=== PATIENT | male | born 1925 | race Hispanic/Latino ===

== ENCOUNTER 2017-04-04 12:53 | Emergency (ER) | payer MEDICARE ==
[2017-04-04 12:53] VITALS: BMI 18.0
[2017-04-04 12:59] VITALS: RESP 16; TEMP 97.8
--- NOTE | 2017-04-04 13:39 | ED PDOC ---
HPI: Trauma/Fall - HPI Time Seen by Provider: 04/04/17 13:09 Chief Complaint (Nursing): Trauma Chief Complaint (Provider): Trauma History Per: Patient History/Exam Limitations: no limitations Onset/Duration Of Symptoms: Days (x2 days) Additional Complaint(s): 89 y/o male with a past medical history of a pacemaker and chronic obstructive pulmonary disease who presents to the emergency department with a complaint of lower back and right hip pain x2 days. States he fell, landed on his buttocks and hit his head but was able to walk afterwards as well as today with walker as usual with some pain to the back. Reports pain worsened today which prompted him to the emergency department. Denies right hip pain, loss of consciousness, weakness, and dizziness. PMD: Dr. Jason Arango MD Past Medical History Reviewed: Historical Data, Nursing Documentation, Vital Signs Vital Signs: Last Vital Signs Temp 97.8 F 04/04/17 12:56 Pulse 88 04/04/17 12:56 Resp 16 04/04/17 12:56 BP 140/101 H 04/04/17 12:56 Pulse Ox 98 04/04/17 12:56 - Medical History PMH: CHF, COPD, HTN, Hypercholesterolemia, Peripheral Edema, Pneumonia (OCT 2015 ), Chronic Kidney Disease (PROTEINURIA) - Surgical History Surgical History: Cholecystectomy, Pacemaker - Family History Family History: States: Unknown Family Hx - Social History Current smoker - smoking cessation education provided: No Ex-Smoker (has not smoked in the last 12 months): Yes Alcohol: None Drugs: Denies - Immunization History Hx Tetanus Toxoid Vaccination: No Hx Influenza Vaccination: No Hx Pneumococcal Vaccination: No - Home Medications Home Medications: Ambulatory Orders Medication Instructions Recorded Midodrine HCl 10 mg PO DAILY 10/12/15 Furosemide [Lasix] 20 mg PO DAILY 10/31/15 Aspirin [Ecotrin] 81 mg PO DAILY 04/26/16 Ibuprofen [Advil] 100 mg PO PRN PRN 04/26/16 - Allergies Allergies/Adverse Reactions: Allergies Allergy/AdvReac Type Severity Reaction Status Date / Time No Known Allergies Allergy Verified 07/17/16 08:09 Review of Systems ROS Statement: Except As Marked, All Systems Reviewed And Found Negative Constitutional: Negative for: Weakness, Other (Loss of consciousness) Cardiovascular: Negative for: Chest Pain Musculoskeletal: Positive for: Back Pain (Lower), Other (Right hip pain) Neurological: Negative for: Dizziness Physical Exam - Reviewed Nursing Documentation Reviewed: Yes Vital Signs Reviewed: Yes - Physical Exam Appears: Positive for: Non-toxic, No Acute Distress, Uncomfortable Head Exam: Positive for: ATRAUMATIC, NORMAL INSPECTION, NORMOCEPHALIC Skin: Positive for: Normal Color, Warm, Dry Eye Exam: Positive for: Normal appearance, EOMI Neck: Positive for: Normal, Supple Cardiovascular/Chest: Positive for: Regular Rate, Rhythm. Negative for: Murmur Respiratory: Positive for: Normal Breath Sounds. Negative for: Accessory Muscle Use, Respiratory Distress Gastrointestinal/Abdominal: Positive for: Normal Exam, Soft. Negative for: Tenderness Extremity: Positive for: Normal ROM (with pain of the right hip), Tenderness ( to palpation of the lower back ) Neurologic/Psych: Positive for: Alert, Oriented - Laboratory Results Result Diagrams: 04/04/17 13:35 04/04/17 13:35 - ECG O2 Sat by Pulse Oximetry: 98 (RA) Pulse Ox Interpretation: Normal Medical Decision Making Medical Decision Making: Time: 13:29 Initial impression: Traumatic injury from fall. Head, hip, and lower back injury. Rule out fractures Initial plan: --Cervical spine w/o contrast CT --Head w/o contrast CT --Lumbar Spine w/o contrast CT --BMP --CBC w/ diff --Hip 1 view X-ray --Reevaluation Time: 15:07 --Head CT FINDINGS: HEMORRHAGE: No acute the frontal, subarachnoid or extra-axial hemorrhage. BRAIN: Mild chronic periventricular white matter ischemic changes seen extending peripherally into the deep white matter both cerebral hemispheres. Few tiny scattered lacunar-type infarcts both basal nuclei not excluded. Moderate central volume loss evidenced by disproportionate enlargement of the ventricles as compared the sulci. VENTRICLES: No obstructive hydrocephalus. CALVARIUM: Unremarkable. PARANASAL SINUSES: Unremarkable as visualized. No significant inflammatory changes. MASTOID AIR CELLS: Unremarkable as visualized. No inflammatory changes. OTHER FINDINGS: Changes of bilateral cataract surgery are present, new since prior study IMPRESSION: No acute intracranial hemorrhage. Mild chronic white matter ischemic changes. Moderate central volume loss. . Right hip xray reviewed by me: no acute findings Scribe Attestation: Documented by Concepción Sommer, acting as a scribe for Mac Cooper MD. Provider Scribe Attestation: All medical record entries made by the Scribe were at my direction and personally dictated by me. I have reviewed the chart and agree that the record accurately reflects my personal performance of the history, physical exam, medical decision making, and the department course for this patient. I have also personally directed, reviewed, and agree with the discharge instructions and disposition. Disposition - Clinical Impression Clinical Impression: Fall, Injury, head, Injury of hip, right, Back injury - Patient ED Disposition Is Patient to be Admitted: Transfer of Care - Disposition Referrals: Jason Arango MD [Family Provider] - Disposition: Transfer of Care Disposition Time: 15:00 Condition: STABLE Instructions: Fall Prevention for Older Adults (ED) Forms: [employer] ([place]an) Patient Signed Over To: Randi Villalobos
[2017-04-04 13:48] LABS: BASO # 0.1 K/uL (0.0-0.2); BASO % 0.8 % (0.0-2.0); EOS # 0.2 K/uL (0.0-0.7); EOS % 1.6 % (0.0-4.0); HEMATOCRIT 42.4 % (35.0-51.0); LYMPH # 0.8 K/uL (1.0-4.3); LYMPH % 7.6 % (20.0-40.0); MEAN CELL VOLUME 96.5 fl (80.0-94.0); MEAN CORPUSCULAR HEMOGLOBIN 32.3 pg (27.0-31.0); MEAN CORPUSCULAR HGB CONC 33.4 g/dL (33.0-37.0); MEAN PLATELET VOLUME 9.7 fl (7.2-11.7); MONO % 9.2 % (0.0-10.0); NEUT # 8.3 K/uL (1.8-7.0); NEUT % 80.8 % (50.0-75.0); NRBC % 0.1 % (0.0-0.0); PLATELET COUNT 124 K/uL (130-400); RED CELL DISTRIBUTION WIDTH 14.9 % (11.5-14.5); WHITE BLOOD COUNT 10.3 K/uL (4.8-10.8)
[2017-04-04 14:01] LABS: BLOOD UREA NITROGEN 40 mg/dl (9-20); CALCIUM 8.9 mg/dL (8.4-10.2); CARBON DIOXIDE 26 mmol/L (22-30); CHLORIDE 100 mmol/L (98-107); GFR AFRICAN-AMERICAN > 60; GLUCOSE,RANDOM 108 mg/dL (75-110); POTASSIUM 4.1 MMOL/L (3.6-5.0); SODIUM 138 mmol/l (132-148)
[2017-04-04 14:46] LABS: EOSINOPHIL 1 % (0-7); NEUTROPHIL 90 % (42-75); TOTAL CELLS COUNTED 100
--- NOTE | 2017-04-04 15:08 | CT ---
PROCEDURE: CT scan of the brain dated 04/04/2017 HISTORY: head injury COMPARISON: Comparison made with prior CT scan brain 09/12/2011. TECHNIQUE: Axial computed tomography images were obtained through the head/brain without intravenous contrast. Radiation dose: Total exam DLP = 1020.93 mGy-cm. This CT exam was performed using one or more of the following dose reduction techniques: Automated exposure control, adjustment of the mA and/or kV according to patient size, and/or use of iterative reconstruction technique. FINDINGS: HEMORRHAGE: No acute the frontal, subarachnoid or extra-axial hemorrhage. BRAIN: Mild chronic periventricular white matter ischemic changes seen extending peripherally into the deep white matter both cerebral hemispheres. Few tiny scattered lacunar-type infarcts both basal nuclei not excluded. Moderate central volume loss evidenced by disproportionate enlargement of the ventricles as compared the sulci. VENTRICLES: No obstructive hydrocephalus. CALVARIUM: Unremarkable. PARANASAL SINUSES: Unremarkable as visualized. No significant inflammatory changes. MASTOID AIR CELLS: Unremarkable as visualized. No inflammatory changes. OTHER FINDINGS: Changes of bilateral cataract surgery are present, new since prior study IMPRESSION: No acute intracranial hemorrhage. Mild chronic white matter ischemic changes. Moderate central volume loss. .
--- NOTE | 2017-04-04 15:47 | CT ---
PROCEDURE: CT Cervical Spine without contrast HISTORY: <head injury> COMPARISON: None available. TECHNIQUE: Axial computed tomography images were obtained of the cervical spine without the use of intravenous contrast. Coronal and sagittal reformatted images were created and reviewed. Radiation dose: Total exam DLP = 440.16 mGy-cm. This CT exam was performed using one or more of the following dose reduction techniques: Automated exposure control, adjustment of the mA and/or kV according to patient size, and/or use of iterative reconstruction technique. FINDINGS: VERTEBRAE: Current study reveals no definitive radiographic evidence of acute displaced nor compression fracture deformity. . Chronic appearing anterior wedge compression fractures of the T4 and T5 segments noted with resultant marked kyphosis centered at this level. There is also on slight anterior subluxation of C4 over C5 and C7 over T1. Remaining vertebral bodies otherwise exhibit relatively normal alignment. Facets normally aligned. DISCS/SPINAL CANAL/NEURAL FORAMINA: Multilevel degenerative spondylosis. Changes include varying degrees of disc space narrowing, endplate eburnation with anterolateral as well as small posterior osteophyte formation, most notably affecting the C5-C6, C6-C7 and to a lesser degree remaining levels. The uncovertebral facets also hypertrophic with multilevel bilateral foraminal stenosis. The overall central canal the is poorly seen due to significant kyphotic angulation of with axial sections at angles to nearly every cervical disc space. Central canal appears marginal to mildly narrowed throughout. PARASPINAL SOFT TISSUES: Paraspinal soft tissues appear grossly unremarkable. OTHER FINDINGS: Scarring changes/fibrosis both upper lobes. In addition, there are centrilobular and paraseptal emphysematous changes are also felt to be present. IMPRESSION: There are chronic appearing anterior wedge compression fractures of the T4 and T5 segments with significant kyphotic angulation centered at this level. No definitive acute compression fractures. Multilevel degenerative spondylosis.
--- NOTE | 2017-04-04 15:56 | ED PDOC ---
- Laboratory Results Result Diagrams: 04/04/17 13:35 04/04/17 13:35 - ECG O2 Sat by Pulse Oximetry: 98 (RA) Pulse Ox Interpretation: Normal Medical Decision Making Medical Decision Making: Time: 15:00 --Patient was transferred from Dr. Almazan to ne. --Pending x-ray and CT. Time: 15:45 --Cervical Spine CT FINDINGS: VERTEBRAE: Current study reveals no definitive radiographic evidence of acute displaced nor compression fracture deformity. . Chronic appearing anterior wedge compression fractures of the T4 and T5 segments noted with resultant marked kyphosis centered at this level. There is also on slight anterior subluxation of C4 over C5 and C7 over T1. Remaining vertebral bodies otherwise exhibit relatively normal alignment. Facets normally aligned. DISCS/SPINAL CANAL/NEURAL FORAMINA: Multilevel degenerative spondylosis. Changes include varying degrees of disc space narrowing, endplate eburnation with anterolateral as well as small posterior osteophyte formation, most notably affecting the C5-C6, C6-C7 and to a lesser degree remaining levels. The uncovertebral facets also hypertrophic with multilevel bilateral foraminal stenosis. The overall central canal the is poorly seen due to significant kyphotic angulation of with axial sections at angles to nearly every cervical disc space. Central canal appears marginal to mildly narrowed throughout. PARASPINAL SOFT TISSUES: Paraspinal soft tissues appear grossly unremarkable. OTHER FINDINGS: Scarring changes/fibrosis both upper lobes. In addition, there are centrilobular and paraseptal emphysematous changes are also felt to be present. IMPRESSION: There are chronic appearing anterior wedge compression fractures of the T4 and T5 segments with significant kyphotic angulation centered at this level. No definitive acute compression fractures. Multilevel degenerative spondylosis. Scribe Attestation: Documented by Concepción Sommer, acting as a scribe for Mac Cooper MD. Provider Scribe Attestation: All medical record entries made by the Scribe were at my direction and personally dictated by me. I have reviewed the chart and agree that the record accurately reflects my personal performance of the history, physical exam, medical decision making, and the department course for this patient. I have also personally directed, reviewed, and agree with the discharge instructions and disposition. 4.00p - patient observed to ambulate with his walker steadily. CT scans unrevealing of acute pathology. X-rays reviewed and do not show acute pathology. Will discharge. Disposition Doctor Will See Patient In The: Office Counseled Patient/Family Regarding: Diagnosis, Need For Followup - Clinical Impression Clinical Impression: Fall - POA Present On Arrival: Falls Or Trauma - Disposition Referrals: Jason Arango MD [Family Provider] - Disposition: Routine/Home Disposition Time: 16:04 Condition: STABLE Instructions: Fall Prevention for Older Adults (ED) Forms: [employer] (Turkish)
--- NOTE | 2017-04-04 16:01 | CT ---
PROCEDURE: CT scan lumbar spine dated 04/04/2017. HISTORY: Status post fall with low back pain. COMPARISON: No prior study available for comparison however correlation made with CT scan of the TECHNIQUE: Contiguous helical/transaxial computed tomography images were obtained of the lumbar spine without the use of intravenous contrast. Coronal and sagittal reformatted images were created and reviewed. Radiation dose: Total exam DLP = 429.35 mGy-cm. This CT exam was performed using one or more of the following dose reduction techniques: Automated exposure control, adjustment of the mA and/or kV according to patient size, and/or use of iterative reconstruction technique. . FINDINGS: VERTEBRAE: Minor fish-mouth endplate deformities of few lumbar segments. Vertebral bodies otherwise exhibit normal stature. Slight anterior subluxation L4 over L5 however remaining vertebral bodies otherwise exhibit normal alignment. Facets normally aligned. Multilevel degenerative spondylosis. At the L5-S1 level, there is minor posterior disc space narrowing. No disc herniation or significant disc bulge. Facet joints are hypertrophic right greater than left. The overall central canal appears adequate. Exit foramina appear adequate. . At the L4-L5 level, there is disc space narrowing more so along the posterior disc margin with vacuum disc phenomena. Small broad-based disc bulge ridge complex extends into the inferior margins of both exit foramina more so on the left than the right. Hypertrophic facets and buckled ligamentum flavum. Significant central canal stenosis. Right exit foramen is stenotic. Left exit foramen is marginal to adequate. At the L3-L4 level, there is minor posterior disc space narrowing. Small broad-based disc bulge ridge complex. . Disc results in some flattening the ventral surface of thecal sac. The central canal appears adequate. Facets are hypertrophic and flavum somewhat buckled. . Exit foramina are adequate. At the L2-L3 level, the there is intradiscal calcification and minor posterior disc space narrowing. Small somewhat lobulated disc bulging results in compressive effects along the anterolateral borders of the thecal sac. Facets are hypertrophic. Central canal is marginal to adequate. The exit foramina appear adequate. At the L1-L2 level, there is disc space narrowing with vacuum disc phenomena. Small broad-based disc bulge ridge complex asymmetrically larger on the right than left results in some flattening of the ventral surface of the thecal sac more so on the right side. The overall central canal appears adequate. Facets are also hypertrophic. Exit foramina are adequate. Paraspinal soft tissues unremarkable. Incidental note made of localized aneurysmal dilatation of the infrarenal abdominal aorta which measures approximately 3.4 cm in transverse dimension Findings consistent with constipation. Status post cholecystectomy Impression: No acute fractures. Mild fish-mouth endplate deformities noted at several levels. Multilevel degenerative spondylosis most severely affecting the L4-L5 level. There is also on mild aneurysmal dilatation of the infrarenal abdominal aorta.
[2017-04-04 16:11] VITALS: BP 116/56; PULSE 59
--- NOTE | 2017-04-04 16:13 | RAD ---
PROCEDURE: Right Hip Radiographs. A frontal view of the pelvis and frontal/frogleg lateral views of the right hip performed. HISTORY: right hip pain injury COMPARISON: None. FINDINGS: BONES: No evidence of acute displaced fracture nor dislocation. The osseous structures intact. Both femoral heads are appropriately located within the respective acetabula. JOINTS: Minor spurring along the superolateral margins of the acetabular rims. SOFT TISSUES: Soft tissues appear grossly unremarkable OTHER FINDINGS: None. IMPRESSION: No acute fractures. If symptoms persist or occult fracture suspected clinically recommend followup CT scan of the pelvis and right hip.
[2017-04-05 16:38] VITALS: O2SAT 98
== END 2017-04-04 16:17 | disposition home or self-care (01) ==
LOC: H.ER 12:53
DX: S09.90XA Unspecified injury of head, initial encounter (principal); S39.92XA Unspecified injury of lower back, initial encounter; S22.049A Unspecified fracture of fourth thoracic vertebra, initial encounter for closed fracture; W19.XXXA Unspecified fall, initial encounter; Y92.89 Other specified places as the place of occurrence of the external cause; I13.0 Hypertensive heart and chronic kidney disease with heart failure and stage 1 through stage 4 chronic kidney disease, or unspecified chronic kidney disease; J44.9 Chronic obstructive pulmonary disease, unspecified; Z79.82 Long term (current) use of aspirin; Z95.0 Presence of cardiac pacemaker

== ENCOUNTER 2017-05-14 15:11 | Inpatient (IN) | payer MEDICARE, OTHER ==
[2017-05-14] MEDS ORDERED: Albuterol-Ipratrop 3 mg / 0.5 (3 ml) UD INH STA (15:57)
--- NOTE | 2017-05-14 16:00 | ED PDOC ---
HPI: SOB/CHF/COPD Time Seen by Provider: 05/14/17 15:35 Chief Complaint (Nursing): Back Pain Chief Complaint (Provider): shortness of breath History Per: Patient, Family History/Exam Limitations: no limitations Onset/Duration Of Symptoms: Days (2), Gradual, Persistent Exacerbating Factor(s): Exertion Associated Symptoms: Other (nonproductive cough). denies: Fever, Chills, Chest Pain Additional Complaint(s): Also reporting intractable back pain, seen by PMR today. PMD/Card: Dr Raúl Arango Pulm: Paula PMR: Dr Dodson Past Medical History Reviewed: Historical Data, Nursing Documentation, Vital Signs Vital Signs: Last Vital Signs Temp 98 F 05/14/17 15:24 Pulse 58 L 05/14/17 15:24 Resp 18 05/14/17 15:24 BP 109/65 05/14/17 15:24 Pulse Ox 93 L 05/14/17 16:04 - Medical History PMH: CHF, COPD, HTN, Hypercholesterolemia, Peripheral Edema, Pneumonia (OCT 2015 ), Chronic Kidney Disease (PROTEINURIA) - Surgical History Surgical History: Cholecystectomy, Pacemaker - Family History Family History: States: Unknown Family Hx - Social History Ex-Smoker (has not smoked in the last 12 months): Yes - Immunization History Hx Tetanus Toxoid Vaccination: No Hx Influenza Vaccination: No Hx Pneumococcal Vaccination: No - Home Medications Home Medications: Ambulatory Orders Medication Instructions Recorded Midodrine HCl 10 mg PO DAILY 10/12/15 Furosemide [Lasix] 20 mg PO DAILY 10/31/15 Aspirin [Ecotrin] 81 mg PO DAILY 04/26/16 Fluticasone/Vilanterol [Breo 1 puff IH DAILY 05/14/17 Ellipta 100-25 Mcg INH] Lidocaine 5% [Lidoderm] 1 patch TD DAILY PRN 05/14/17 - Allergies Allergies/Adverse Reactions: Allergies Allergy/AdvReac Type Severity Reaction Status Date / Time No Known Allergies Allergy Verified 07/17/16 08:09 Review of Systems ROS Statement: Except As Marked, All Systems Reviewed And Found Negative (and as per HPI) Constitutional: Negative for: Fever, Chills Cardiovascular: Positive for: Edema, Light Headedness. Negative for: Chest Pain Respiratory: Positive for: Cough, Shortness of Breath, SOB with Exertion. Negative for: Hemoptysis, Sputum Gastrointestinal: Positive for: Constipation. Negative for: Nausea, Vomiting, Abdominal Pain Musculoskeletal: Positive for: Back Pain Physical Exam - Reviewed Nursing Documentation Reviewed: Yes Vital Signs Reviewed: Yes - Physical Exam Appears: Positive for: In Acute Distress (mild respiratory, chronically ill appearing, but with good spirits) Head Exam: Positive for: ATRAUMATIC, NORMOCEPHALIC Skin: Positive for: Warm, Dry Eye Exam: Positive for: EOMI, PERRL ENT: Positive for: Pharynx Is (clear) Neck: Positive for: Painless ROM, Supple Cardiovascular/Chest: Positive for: Chest Non Tender, Edema, Bradycardia Respiratory: Positive for: Rhonchi (faint), Other (poor air movement). Negative for: Rales, Stridor Gastrointestinal/Abdominal: Positive for: Soft. Negative for: Tenderness Back: Positive for: Vertebral Tenderness (lumbar diffuse with no palp step off or crepitus). Negative for: Muscle Spasm Extremity: Positive for: Pedal Edema (bilateral lower leg and ankle). Negative for: Calf Tenderness Lymphatic: Negative for: Adenopathy Neurologic/Psych: Positive for: Alert. Negative for: Motor/Sensory Deficits - ECG ECG Rhythm: Positive for: Venticular Paced (with appropriate discordance), Nonspecific Changes O2 Sat by Pulse Oximetry: 93 Pulse Ox Interpretation: Normal (low normal) - Radiology X-Ray Interpretation: No Acute Disease (similar to previous sep 2016) - Progress ED Course And Treament: 345p DW Dr Dodson who reports that patient appeared cyanotic and overly dyspneic in his office. He had spoken to Dr Arango about concerns. Sent to ER from office. Requests repeat CT lumbar spine focus on coccyx/sacral area. Disposition - Clinical Impression Clinical Impression: Pulmonary fibrosis, Intractable back pain Discussed With : Jason Arango Doctor Will See Patient In The: Hospital - Disposition Disposition Time: 16:00 Condition: SERIOUS Forms: [facility] [employer] (Welsh) - Pt Status Changed To: Hospital Disposition Of: Observation
[2017-05-14 16:10] LABS: ABG ALLEN TEST YES; ARTERIAL BLOOD GAS HCO3 27.9 mmol/L (21-28); ARTERIAL BLOOD GAS PH 7.48 (7.35-7.45); ARTERIAL BLOOD GAS PO2 60 mm/Hg (80-100)
[2017-05-14 16:39] LABS: BASO # 0.1 K/uL (0.0-0.2); BASO % 0.8 % (0.0-2.0); EOS # 0.2 K/uL (0.0-0.7); EOS % 3.5 % (0.0-4.0); LYMPH # 0.6 K/uL (1.0-4.3); LYMPH % 9.5 % (20.0-40.0); MEAN CELL VOLUME 95.5 fl (80.0-94.0); MEAN CORPUSCULAR HEMOGLOBIN 31.9 pg (27.0-31.0); MEAN CORPUSCULAR HGB CONC 33.4 g/dL (33.0-37.0); MONO # 0.7 K/uL (0.0-0.8); MONO % 11.1 % (0.0-10.0); NEUT # 4.9 K/uL (1.8-7.0); NEUT % 75.1 % (50.0-75.0); NRBC % 0.1 % (0.0-0.0); PLATELET COUNT 190 K/uL (130-400); RED CELL DISTRIBUTION WIDTH 14.9 % (11.5-14.5); WHITE BLOOD COUNT 6.6 K/uL (4.8-10.8)
[2017-05-14 16:42] LABS: ALB/GLOB RATIO 1.2 (1.0-2.1); ALKALINE PHOSPHATASE 113 U/L (38-126); ALT/SGPT 32 U/L (21-72); AST/SGOT 24 U/L (17-59); BILIRUBIN,TOTAL 0.8 mg/dl (0.2-1.3); BLOOD UREA NITROGEN 37 mg/dl (9-20); CALCIUM 9.3 mg/dL (8.4-10.2); CARBON DIOXIDE 25 mmol/L (22-30); CHLORIDE 103 mmol/L (98-107); GFR AFRICAN-AMERICAN > 60; GLUCOSE,RANDOM 111 mg/dL (75-110); MAGNESIUM 2.4 MG/DL (1.6-2.3); POTASSIUM 4.2 MMOL/L (3.6-5.0); SODIUM 143 mmol/l (132-148); TOTAL PROTEIN 6.9 G/DL (6.3-8.2)
--- NOTE | 2017-05-14 16:54 | RAD ---
HISTORY: Shortness of breath. Technique: Single view portable semi erect @ 15:51. COMPARISON: 09/18/2016. FINDINGS: LUNGS: Fibronodular changes again identified in the upper lobes right greater than left. PLEURA: No significant pleural effusion identified, no pneumothorax apparent. CARDIOVASCULAR: Cardiomegaly. No evidence of acute, significant cardiovascular disease. Position/ configuration of pacemaker Satisfactory. OSSEOUS STRUCTURES: No significant abnormalities. VISUALIZED UPPER ABDOMEN: Normal. OTHER FINDINGS: None. IMPRESSION: No active disease. No significant interval change compared to the prior examination(s). Please note: No preliminary report/ innterpretation of this examination provided by emergency department personnel.
[2017-05-14 16:56] LABS: PARTIAL THROMBOPLASTIN TIME 26.2 Seconds (25.6-37.1)
[2017-05-14 18:58] LABS: BASOPHIL 1 % (0-2); EOSINOPHIL 4 % (0-7); NEUTROPHIL 71 % (42-75); TOTAL CELLS COUNTED 100
[2017-05-14 18:59] LABS: LARGE PLATELETS PRESENT
[2017-05-14 19:44] VITALS: BMI 17.0
[2017-05-14] MEDS ORDERED: Albuterol-Ipratrop 3 mg / 0.5 (3 ml) UD INH PRN (23:06)
[2017-05-14] MEDS ORDERED: Albuterol 0.083% Inhal Sol (2.5 mg/3 mL) UD INH PRN (23:10)
[2017-05-14] MEDS: Albuterol-Ipratrop 3 mg / 0.5 (3 ml) UD INH SCH (23:15)
[2017-05-15] MEDS: Albuterol 0.083% Inhal Sol (2.5 mg/3 mL) UD INH PRN ×2 (05:49→17:52)
[2017-05-15] MEDS ORDERED: Influenza Vaccine 18yr & older 0.5 ML/45 MCG SYR IM ONE (06:00)
[2017-05-15] MEDS: Albuterol-Ipratrop 3 mg / 0.5 (3 ml) UD INH SCH ×4 (07:52→19:34)
[2017-05-15] MEDS ORDERED: Albuterol-Ipratrop 3 mg / 0.5 (3 ml) UD INH SCH (08:00)
--- NOTE | 2017-05-15 08:05 | CT ---
PROCEDURE: CT Lumbar Spine without contrast HISTORY: back pain focus in coccygeal area COMPARISON: 04/04/2017. TECHNIQUE: Axial computed tomography images were obtained of the lumbar spine without the use of intravenous contrast. Coronal and sagittal reformatted images were created and reviewed. Radiation dose: Total exam DLP = 477.05 mGy-cm. This CT exam was performed using one or more of the following dose reduction techniques: Automated exposure control, adjustment of the mA and/or kV according to patient size, and/or use of iterative reconstruction technique. FINDINGS: VERTEBRAE: Progressive loss of height of L3 vertebral body. New wedge deformity L2 vertebral body. DISCS/SPINAL CANAL/NEURAL FORAMINA: L1-2: Stable degenerative changes. L2-3: No significant interval change compared to the prior examination(s). L3-4: No significant interval L4-5: Change progressive degenerative change, loss of height of disc space a new vacuum disc phenomenon. L5-S1: Unremarkable. PARASPINAL SOFT TISSUES: Unremarkable. OTHER FINDINGS: Stable aneurysmal dilatation of the abdominal aorta. Increased angulation of the coccyx compared to the prior study. Fecal impaction, constipation. IMPRESSION: New wedge deformity L2 vertebral body, progressive loss of height of L3 vertebral body Increased angulation of the coccyx at the level of the 1st and 2nd coccygeal elements. Otherwise no interval change. Concordant results (preliminary interpretation) provided by [employer]. Procedure Completed: 16:20. Preliminary ([facility]) Report: Dictated and Authenticated: 18:48. Final Interpretation: 08:02.May 15, 2017.
[2017-05-15] MEDS ORDERED: Patient's Own Med (Fluticasone/Vilanterol [Breo Ellipta 100-25 Mcg Inh] 1 PUFF) IH SCH (09:00)
[2017-05-15] MEDS: Enoxaparin 30 mg Syringe SC SCH (09:32)
--- NOTE | 2017-05-15 09:43 | CARD ---
APPROVED REPORT EKG Measurement Heart [id number] P58 [id number] <Conclusion> VVI pacing Abnormal ECG
--- NOTE | 2017-05-15 09:44 | CARD ---
APPROVED REPORT EKG Measurement Heart [id number] [place] P61 [id number] <Conclusion> Sinus rhythm with complete heart block and Ventricular-paced rhythm Abnormal ECG
--- NOTE | 2017-05-15 10:34 | CP.PCM.HP ---
History of Present Illness - History of Present Illness History of Present Illness: tthis 89-year-old man was brought to the emergency room when he was seen in the office of his pain management physician and was found to be profoundly short of breath. The patient lives alone and had had a fall resulting in a back injury approximately 2-1/2-3 weeks back following which she has had a persistent back pain and has seen a pain management physician approximately a week back before. The patient has a long medical history consisting of progressive pulmonary fibrosis which makes him profoundly short of breath with minimal exertion and even at rest. The patient has been using oxygen supplement at home for approximately a year and a half. His dyspnea on exertion and is effort tolerance has progressively declined.the patient also has severe left ventricular systolic dysfunction. He also has orthostatic hypotension for which she takes Midodrin for more than 4-5 years. He has had a pacemaker implanted for severe bradycardia more than 10 years back which was revised couple of years back. Because of his orthostatic hypotension his diuretic doses for congestive heart failure are being given with extreme caution. Physical examination shows an elderly frail man alert awake and concordant. In moderate degree of back pain. Afebrile. Breeds at 22 breaths per minute at rest. His heart rate was 70 bpm and regular. His jugular venous pressure was not elevated there was minimal pitting edema over both lower extremities. The pedal pulses were palpable. There were no carotid bruits. The patient was moderately kyphotic. A pacemaker was in place in the left infraclavicular area. The first and second heart sounds were normal and distant. There was a brief systolic murmur in the left third parasternal area. Inspiratory effort was poor and there were coarse crepitations at both bases. His extremities were slightly cool to touch there was no central or peripheral cyanosis while on oxygen supplement with nasal cannula at 3 L/m. His electric cart a gram showed a VVI paced rhythm. There were P waves detected on the electrocardiogram. Chest x-ray showed hyperinflated lungs with no evidence off vascular congestion. His lab data showed marked hypoxia with B O2 of 60 mmHg while on 35% of FiO2. His PCO2 was normal. His BUN and creatinine as well as electrolytes were noted. His proBNP was markedly elevated indicating of severe left ventricular systolic dysfunction which was documented on an echocardiogram of October 2015 which showed an ejection fraction of left ventricle in the range of 10%. Impression: severe back pain following a fall. Pulmonary fibrosis with severe hypoxia. Congestive cardiac failure which is left ventricular systolic and chronic. Orthostatic hypotension. Status post pacemaker implant was severe bradycardia. The patient would be evaluated by pulmonary physician and pain management physician. He lives alone at home and has severe pulmonary and cardiac infirmity. I would recommend a brief period of staying in a subacute nursing facility for pain management before returning home. Present on Admission - Present on Admission Any Indicators Present on Admission: No Past Patient History - Past Medical History & Family History Past Medical History?: Yes - Past Social History Smoking Status: Former Smoker - CARDIAC Hx Congestive Heart Failure: Yes Hx Hypercholesterolemia: Yes Hx Hypertension: Yes Hx Pacemaker: Yes Hx Peripheral Edema: Yes - PULMONARY Hx Chronic Obstructive Pulmonary Disease (COPD): Yes Hx Pneumonia: Yes (OCT 2015) - NEUROLOGICAL Hx Neurological Disorder: No - HEENT Hx HEENT Problems: Yes Hx Cataracts: Yes - RENAL Hx Chronic Kidney Disease: Yes (PROTEINURIA) - ENDOCRINE/METABOLIC Hx Endocrine Disorders: No - HEMATOLOGICAL/ONCOLOGICAL Hx Blood Disorders: No - INTEGUMENTARY Hx Dermatological Problems: No - MUSCULOSKELETAL/RHEUMATOLOGICAL Hx Musculoskeletal Disorders: Yes Hx Back Pain: Yes Hx Falls: Yes Hx Unsteady Gait: Yes Other/Comment: LIMIT JOINT MOTION - GASTROINTESTINAL Hx Gastrointestinal Disorders: No - GENITOURINARY/GYNECOLOGICAL Hx Genitourinary Disorders: No - PSYCHIATRIC Hx Psychophysiologic Disorder: No Hx Substance Use: No - SURGICAL HISTORY Hx Cholecystectomy: Yes - ANESTHESIA Hx Anesthesia: Yes Hx Anesthesia Reactions: No Hx Malignant Hyperthermia: No Meds Allergies/Adverse Reactions: Allergies Allergy/AdvReac Type Severity Reaction Status Date / Time No Known Allergies Allergy Verified 07/17/16 08:09 Results - Vital Signs Recent Vital Signs: Last Vital Signs Temp 98.4 F 05/15/17 08:00 Pulse 60 05/15/17 08:00 Resp 18 05/15/17 08:00 BP 116/55 L 05/15/17 09:33 Pulse Ox 95 05/15/17 08:00 - Labs Result Diagrams: 05/14/17 16:00 05/14/17 16:00 Labs: Laboratory Results - last 24 hr 05/14/17 05/14/17 05/14/17 16:00 16:00 16:00 WBC 6.6 RBC 4.40 Hgb 14.0 Hct 42.0 MCV 95.5 H MCH 31.9 H MCHC 33.4 RDW 14.9 H Plt Count 190 MPV 9.0 Neut % (Auto) 75.1 H Lymph % (Auto) 9.5 L [place] % (Auto) 11.1 H Eos % (Auto) 3.5 Baso % (Auto) 0.8 Neut # 4.9 Lymph # 0.6 L Sully # 0.7 Eos # 0.2 Baso # 0.1 Neutrophils % (Manual) 71 Band Neutrophils % 3 H Lymphocytes % (Manual) 10 L Monocytes % (Manual) 11 H Eosinophils % (Manual) 4 Basophils % (Manual) 1 Platelet Estimate Normal Large Platelets Present Macrocytosis (manual) Slight PT INR APTT pCO2 pO2 HCO3 ABG pH ABG Total CO2 ABG O2 Saturation ABG Base Excess López Test ABG Potassium A-a O2 Difference Glucose Lactate FiO2 Sodium 143 Potassium 4.2 Chloride 103 Carbon Dioxide 25 Anion Gap 19 BUN 37 H Creatinine 1.2 Est GFR ( Amer) > 60 Est GFR (Non-Af Amer) 57 Random Glucose 111 H Calcium 9.3 Phosphorus 3.0 Magnesium 2.4 H Total Bilirubin 0.8 AST 24 ALT 32 Alkaline Phosphatase 113 Troponin I 0.0320 NT-Pro-B Natriuret Pep 20392 H Total Protein 6.9 Albumin 3.8 Globulin 3.1 Albumin/Globulin Ratio 1.2 Arterial Blood Potassium Blood Type A NEGATIVE Antibody Screen Negative BBK History Checked No verified bt 05/14/17 05/14/17 16:04 16:25 WBC RBC Hgb Hct MCV MCH MCHC RDW Plt Count MPV Neut % (Auto) Lymph % (Auto) Sully % (Auto) Eos % (Auto) Baso % (Auto) Neut # Lymph # Sully # Eos # Baso # Neutrophils % (Manual) Band Neutrophils % Lymphocytes % (Manual) Monocytes % (Manual) Eosinophils % (Manual) Basophils % (Manual) Platelet Estimate Large Platelets Macrocytosis (manual) PT 11.2 INR 1.1 APTT 26.2 pCO2 37 pO2 60 L HCO3 27.9 ABG pH 7.48 H ABG Total CO2 28.7 H ABG O2 Saturation 96.9 ABG Base Excess 4.0 H López Test Yes ABG Potassium 4.1 A-a O2 Difference 122.0 Glucose 131 H Lactate 1.1 FiO2 32.0 Sodium 139.0 Potassium Chloride 105.0 Carbon Dioxide Anion Gap BUN Creatinine Est GFR ( Amer) Est GFR (Non-Af Amer) Random Glucose Calcium Phosphorus Magnesium Total Bilirubin AST ALT Alkaline Phosphatase Troponin I NT-Pro-B Natriuret Pep Total Protein Albumin Globulin Albumin/Globulin Ratio Arterial Blood Potassium 4.1 Blood Type Antibody Screen BBK History Checked
--- NOTE | 2017-05-15 12:51 | CP.PCM.CON ---
History of Present Illness - History of Present Illness History of Present Illness: THis 89 year old male who suffers from pulmonary emphysema as well as fibrosis was being seen by Pain Management after having had a fall at home about 2-3 weeks prior. He was noted to be markedly SOB and was sent to the emergency room for evaluation. He was found to be hypoxemic as well as SOB and was admitted to hospital. He does not have any chest pain, and has small amount of sputum production which is mucoid and babb in color. There has been no hemoptysis. He is a former cigarette smoker who quit his habit 25 years ago. He does have a pulmonary nodule in the right lung and had been hospitalized with pneumonia last year, but has no prior history of asthma or tuberculosis exposure. Over the past year he has had progressive GALDAMEZ and has become oxygen dependant at home. A chest x-ray done in the ER showed 'fibronodular changes' primarily affecting the upper lobes. Past Patient History - Past Medical History & Family History Past Medical History?: Yes - Past Social History Smoking Status: Former Smoker - CARDIAC Hx Congestive Heart Failure: Yes Hx Hypercholesterolemia: Yes Hx Hypertension: Yes Hx Pacemaker: Yes Hx Peripheral Edema: Yes - PULMONARY Hx Chronic Obstructive Pulmonary Disease (COPD): Yes Hx Pneumonia: Yes (OCT 2015) Other/Comment: Fibrosis with areas of honeycombing bilaterally. - NEUROLOGICAL Hx Neurological Disorder: No - HEENT Hx Cataracts: Yes - RENAL Hx Chronic Kidney Disease: Yes (PROTEINURIA) - ENDOCRINE/METABOLIC Hx Endocrine Disorders: No - HEMATOLOGICAL/ONCOLOGICAL Hx Blood Disorders: No - INTEGUMENTARY Hx Dermatological Problems: No - MUSCULOSKELETAL/RHEUMATOLOGICAL Hx Back Pain: Yes Hx Falls: Yes Hx Unsteady Gait: Yes Other/Comment: LIMIT JOINT MOTION - GASTROINTESTINAL Hx Gastrointestinal Disorders: No - GENITOURINARY/GYNECOLOGICAL Hx Genitourinary Disorders: No - PSYCHIATRIC Hx Psychophysiologic Disorder: No Hx Substance Use: No - SURGICAL HISTORY Hx Cholecystectomy: Yes - ANESTHESIA Hx Anesthesia: Yes Hx Anesthesia Reactions: No Hx Malignant Hyperthermia: No Meds Allergies/Adverse Reactions: Allergies Allergy/AdvReac Type Severity Reaction Status Date / Time No Known Allergies Allergy Verified 07/17/16 08:09 - Medications Medications: Current Medications Albuterol Sulfate (Albuterol 0.083% Inhal Lashon (2.5 Mg/3 Ml) Ud) 2.5 mg INH RQ4 PRN PRN Reason: SHORTNESS of breath Last Admin: 05/15/17 05:49 Dose: 2.5 mg Albuterol/Ipratropium (Duoneb 3 Mg/0.5 Mg (3 Ml) Ud) 3 ml INH RQID [facility] Last Admin: 05/15/17 11:27 Dose: 3 ml Docusate Sodium (Colace) 100 mg PO DAILY [facility] Enoxaparin Sodium (Lovenox) 30 mg SC DAILY [facility] PRN Reason: Protocol Last Admin: 05/15/17 09:32 Dose: 30 mg Furosemide (Lasix) 20 mg PO DAILY [facility] Last Admin: 05/15/17 09:33 Dose: 20 mg Methylprednisolone 40 mg/ (Sodium Chloride) 50 mls @ 100 mls/hr IVPB Q12 [facility] Ketorolac Tromethamine (Toradol) 15 mg IVP Q6 PRN PRN Reason: Pain, moderate (4-7) Last Admin: 05/15/17 05:40 Dose: 15 mg Lactulose (Enulose) 10 gm PO DAILY PRN PRN Reason: Constipation Lidocaine (Lidoderm) 1 ea TD DAILY PRN PRN Reason: Pain, Mild (1-3) Midodrine (Proamatine) 10 mg PO DAILY [facility] Last Admin: 05/15/17 09:33 Dose: 10 mg Physical Exam - Additional Findings Additional findings: Elderly male who is mentally clear with good memory. Speech is fluent. No palpable lymphadenopathy. Neck is supple and trachea is midline. No neck vein distention or carotid bruit. Nares are patent bilaterally. No bleeding or exudate. Pharynx is pink and mucous membranes are moist. No exudate. EACs are patent and TMs are intact bilaterally. No dullness on chest percussion. Both hemidiaphragms appear to be displaced somewhat caudally. Breath sounds are diminished bilaterally. Dry rales are heard primarily in the lower lobes posteriorly (these are not classic Velcro rales). No bronchial breath sounds or egophony. The heart sounds are slightly distant and the rhythm is regular. No murmur. The abdomen is soft and nontender with normal bowel sounds. Peripheral pulses are not felt in the ankles or feet of either leg. Nail beds appear dusky. No ecchymosis or jaundice. No rash. Results - Vital Signs Recent Vital Signs: Last Vital Signs Temp 97.6 F 05/15/17 12:00 Pulse 60 05/15/17 12:00 Resp 18 05/15/17 12:00 BP 104/57 L 05/15/17 12:00 Pulse Ox 94 L 05/15/17 12:00 - Labs Result Diagrams: 05/16/17 04:15 05/16/17 04:15 Labs: Laboratory Results - last 24 hr 05/14/17 05/14/17 05/14/17 16:00 16:00 16:00 WBC 6.6 RBC 4.40 Hgb 14.0 Hct 42.0 MCV 95.5 H MCH 31.9 H MCHC 33.4 RDW 14.9 H Plt Count 190 MPV 9.0 Neut % (Auto) 75.1 H Lymph % (Auto) 9.5 L [place] % (Auto) 11.1 H Eos % (Auto) 3.5 Baso % (Auto) 0.8 Neut # 4.9 Lymph # 0.6 L [place] # 0.7 Eos # 0.2 Baso # 0.1 Neutrophils % (Manual) 71 Band Neutrophils % 3 H Lymphocytes % (Manual) 10 L Monocytes % (Manual) 11 H Eosinophils % (Manual) 4 Basophils % (Manual) 1 Platelet Estimate Normal Large Platelets Present Macrocytosis (manual) Slight PT INR APTT pCO2 pO2 HCO3 ABG pH ABG Total CO2 ABG O2 Saturation ABG Base Excess López Test ABG Potassium A-a O2 Difference Glucose Lactate FiO2 Sodium 143 Potassium 4.2 Chloride 103 Carbon Dioxide 25 Anion Gap 19 BUN 37 H Creatinine 1.2 Est GFR ( Amer) > 60 Est GFR (Non-Af Amer) 57 Random Glucose 111 H Calcium 9.3 Phosphorus 3.0 Magnesium 2.4 H Total Bilirubin 0.8 AST 24 ALT 32 Alkaline Phosphatase 113 Troponin I 0.0320 NT-Pro-B Natriuret Pep 84791 H Total Protein 6.9 Albumin 3.8 Globulin 3.1 Albumin/Globulin Ratio 1.2 Arterial Blood Potassium Blood Type A NEGATIVE Antibody Screen Negative BBK History Checked No verified bt 05/14/17 05/14/17 16:04 16:25 WBC RBC Hgb Hct MCV MCH MCHC RDW Plt Count MPV Neut % (Auto) Lymph % (Auto) [place] % (Auto) Eos % (Auto) Baso % (Auto) Neut # Lymph # [place] # Eos # Baso # Neutrophils % (Manual) Band Neutrophils % Lymphocytes % (Manual) Monocytes % (Manual) Eosinophils % (Manual) Basophils % (Manual) Platelet Estimate Large Platelets Macrocytosis (manual) PT 11.2 INR 1.1 APTT 26.2 pCO2 37 pO2 60 L HCO3 27.9 ABG pH 7.48 H ABG Total CO2 28.7 H ABG O2 Saturation 96.9 ABG Base Excess 4.0 H López Test Yes ABG Potassium 4.1 A-a O2 Difference 122.0 Glucose 131 H Lactate 1.1 FiO2 32.0 Sodium 139.0 Potassium Chloride 105.0 Carbon Dioxide Anion Gap BUN Creatinine Est GFR ( Amer) Est GFR (Non-Af Amer) Random Glucose Calcium Phosphorus Magnesium Total Bilirubin AST ALT Alkaline Phosphatase Troponin I NT-Pro-B Natriuret Pep Total Protein Albumin Globulin Albumin/Globulin Ratio Arterial Blood Potassium 4.1 Blood Type Antibody Screen BBK History Checked Assessment & Plan (1) Bullous emphysema Status: Chronic Priority: High Comment: Mostly affecting the upper lobes biolaterally. (2) Pulmonary fibrosis Status: Chronic Priority: High Comment: Peripherally located with areas of honeycombing, but affecting more the upper lobes rather than the lower lobes. This would not be consistent with UIP pattern of disease. - Assessment and Plan (Free Text) Plan: Aerosol therapy, parenteral corticosteroids and supplemental oxygen. May consider addition of PDE 4 inhibitor (roflumilast) to regimen. - Date & Time Date: 05/15/17 Time: 12:51
--- NOTE | 2017-05-15 15:53 | CT ---
PROCEDURE: CT Chest without contrast HISTORY: Shortness of breath, pulmonary fibrosis COMPARISON: 04/26/2016. TECHNIQUE: Contiguous axial images were obtained through the chest without intravenous contrast enhancement. Sagittal and coronal reconstructions were performed. Radiation dose (DLP): 273.02 mGy-cm. This CT exam was performed using one or more of the following dose reduction techniques: Automated exposure control, adjustment of the mA and/or kV according to patient size, and/or use of iterative reconstruction technique. FINDINGS: LUNGS: The lungs are hyperinflated. There is redemonstration of centrilobular and paraseptal emphysema in both lungs, worse in the anterior mid lungs. There are also reticular opacities in the peripheral lungs and a interlobular septal thickening with honeycombing in lingula and both lower lobes. There is a 10 mm linear density in the superior segment of the left lower lobe (series 3, image 61), new since the prior examination. There is a stable 6 mm subpleural nodule in the right middle lobe. There is no focal consolidation or mass. MEDIASTINUM: There are prominent subcentimeter mediastinal lymph nodes, likely reactive. The aorta is not dilated. Again seen is moderate cardiomegaly. There are atherosclerotic calcifications in the coronary arteries. No pericardial effusion. There is a left-sided AICD. PLEURA: There is a trace right and small left pleural effusion. No pneumothorax. BONES: No fracture. No destructive lesion. There is diffuse bone demineralization, exaggerated kyphosis and multilevel degenerative changes in the spine. UPPER ABDOMEN: Grossly unremarkable. OTHER FINDINGS: None. IMPRESSION: 1. COPD. Centrilobular and paraseptal emphysema in the lungs. 2. Interstitial pulmonary fibrosis, not significantly changed since the prior examination. 3. 10 mm linear density in the superior segment of the left lower lobe new since the prior examination and could represent atelectasis or nonspecific inflammation, follow-up after medical management is recommended to ensure resolution. 4. Moderate cardiomegaly.
[2017-05-15] MEDS: methylPREDNISolone 40 MG in Sodium Chloride 0.9% 50 ML IVPB SCH ×2 (17:17→21:52)
--- NOTE | 2017-05-15 18:06 | CP.PCM.CON ---
History of Present Illness - History of Present Illness History of Present Illness: Dr Dodson PMR consultation on Ayush Dodson, born 1925, who has been admitted with SOB and severe low back pain. This did not respond to conservative care and with both conditions worsening it was determined that an acute hospitalization was necessary. Testing and treatment as an outpatient with his status was not realistic. He has severe pulmonary fibrosis. He had a CT of the lumbar spine and a new L2 compression fracture was noted. At this point a Kyphoplasty and TCU admission post procedure would be appropriate. He does not feel good overall. Past Patient History - Past Medical History & Family History Past Medical History?: Yes - Past Social History Smoking Status: Former Smoker - CARDIAC Hx Congestive Heart Failure: Yes Hx Hypercholesterolemia: Yes Hx Hypertension: Yes Hx Pacemaker: Yes Hx Peripheral Edema: Yes - PULMONARY Hx Chronic Obstructive Pulmonary Disease (COPD): Yes Hx Pneumonia: Yes (OCT 2015) - NEUROLOGICAL Hx Neurological Disorder: No - HEENT Hx HEENT Problems: Yes Hx Cataracts: Yes - RENAL Hx Chronic Kidney Disease: Yes (PROTEINURIA) - ENDOCRINE/METABOLIC Hx Endocrine Disorders: No - HEMATOLOGICAL/ONCOLOGICAL Hx Blood Disorders: No - INTEGUMENTARY Hx Dermatological Problems: No - MUSCULOSKELETAL/RHEUMATOLOGICAL Hx Musculoskeletal Disorders: Yes Hx Back Pain: Yes Hx Falls: Yes Hx Unsteady Gait: Yes Other/Comment: LIMIT JOINT MOTION - GASTROINTESTINAL Hx Gastrointestinal Disorders: No - GENITOURINARY/GYNECOLOGICAL Hx Genitourinary Disorders: No - PSYCHIATRIC Hx Psychophysiologic Disorder: No Hx Substance Use: No - SURGICAL HISTORY Hx Cholecystectomy: Yes - ANESTHESIA Hx Anesthesia: Yes Hx Anesthesia Reactions: No Hx Malignant Hyperthermia: No Meds Allergies/Adverse Reactions: Allergies Allergy/AdvReac Type Severity Reaction Status Date / Time No Known Allergies Allergy Verified 07/17/16 08:09 - Medications Medications: Current Medications Albuterol Sulfate (Albuterol 0.083% Inhal Lashon (2.5 Mg/3 Ml) Ud) 2.5 mg INH RQ4 PRN PRN Reason: SHORTNESS of breath Last Admin: 05/15/17 17:52 Dose: 2.5 mg Albuterol/Ipratropium (Duoneb 3 Mg/0.5 Mg (3 Ml) Ud) 3 ml INH RQID [facility] Last Admin: 05/15/17 15:33 Dose: 3 ml Docusate Sodium (Colace) 100 mg PO DAILY [facility] Last Admin: 05/15/17 17:17 Dose: Not Given Enoxaparin Sodium (Lovenox) 30 mg SC DAILY [facility] PRN Reason: Protocol Last Admin: 05/15/17 09:32 Dose: 30 mg Famotidine (Pepcid) 20 mg PO BID [facility] Last Admin: 05/15/17 17:17 Dose: 20 mg Furosemide (Lasix) 20 mg PO DAILY [facility] Last Admin: 05/15/17 09:33 Dose: 20 mg Methylprednisolone 40 mg/ (Sodium Chloride) 50 mls @ 100 mls/hr IVPB Q12 [facility] Last Admin: 05/15/17 17:17 Dose: 100 mls/hr Ketorolac Tromethamine (Toradol) 15 mg IVP Q6 PRN PRN Reason: Pain, moderate (4-7) Last Admin: 05/15/17 17:29 Dose: 15 mg Lactulose (Enulose) 10 gm PO DAILY PRN PRN Reason: Constipation Lidocaine (Lidoderm) 1 ea TD DAILY PRN PRN Reason: Pain, Mild (1-3) Midodrine (Proamatine) 10 mg PO DAILY [facility] Last Admin: 05/15/17 09:33 Dose: 10 mg Results - Vital Signs Recent Vital Signs: Last Vital Signs Temp 98.2 F 05/15/17 16:44 Pulse 59 L 05/15/17 16:44 Resp 19 05/15/17 16:44 BP 115/58 L 05/15/17 16:44 Pulse Ox 97 05/15/17 16:44 - Labs Result Diagrams: 05/14/17 16:00 05/14/17 16:00 Labs: Laboratory Results - last 24 hr 05/14/17 16:00 Neutrophils % (Manual) 71 Band Neutrophils % 3 H Lymphocytes % (Manual) 10 L Monocytes % (Manual) 11 H Eosinophils % (Manual) 4 Basophils % (Manual) 1 Platelet Estimate Normal Large Platelets Present Macrocytosis (manual) Slight
[2017-05-16] MEDS: Albuterol 0.083% Inhal Sol (2.5 mg/3 mL) UD INH PRN (05:00)
[2017-05-16 05:27] LABS: MEAN CELL VOLUME 95.2 fl (80.0-94.0); MEAN CORPUSCULAR HEMOGLOBIN 32.1 pg (27.0-31.0); MEAN CORPUSCULAR HGB CONC 33.7 g/dL (33.0-37.0); RED CELL DISTRIBUTION WIDTH 14.4 % (11.5-14.5); WHITE BLOOD COUNT 4.7 K/uL (4.8-10.8)
[2017-05-16 05:41] LABS: BLOOD UREA NITROGEN 35 mg/dl (9-20); CALCIUM 9.1 mg/dL (8.4-10.2); CARBON DIOXIDE 23 mmol/L (22-30); CHLORIDE 101 mmol/L (98-107); GFR AFRICAN-AMERICAN > 60; GLUCOSE,RANDOM 182 mg/dL (75-110); POTASSIUM 4.3 MMOL/L (3.6-5.0); SODIUM 140 mmol/l (132-148)
[2017-05-16] MEDS: Albuterol-Ipratrop 3 mg / 0.5 (3 ml) UD INH SCH ×4 (07:44→19:49)
[2017-05-16] MEDS: methylPREDNISolone 40 MG in Sodium Chloride 0.9% 50 ML IVPB SCH ×2 (08:11→21:09)
[2017-05-16] MEDS: Enoxaparin 30 mg Syringe SC SCH (08:12)
[2017-05-16] MEDS ORDERED: BREO ELLIPTA INH SCH (09:00)
--- NOTE | 2017-05-16 09:24 | CP.PCM.PN ---
Subjective - Date & Time of Evaluation Date of Evaluation: 05/16/17 Time of Evaluation: 09:20 - Subjective Subjective: Had some issues overnight with regard to blood pressure. Remains on supplemental nasal oxygen at 3 LPM with SpO2 between 90-96%. Occasional cough with scant mucoid sputum. No fever or chills. No chest pain. Review of CT scan does show some progression of his disease, but remains more upper lobe than lower. Of note is a degree of volume loss in the left lower lobe is now evident, likely a result of fibrosis. On exam he continues to have dry rales posteriorly, mostly upper lobe, but lower lobe as well. No audible wheezing appreciated. No bronchial breathing. Lab shows increased glucose (180) since adding steroid treatment. Will change aerosol to Bevespi Aerosphere 2 puffs Q12H (trial). Continue PRN albuterol and maintain steroids. Add roflumilast to current regimen as a trial also. Objective - Vital Signs/Intake and Output Vital Signs (last 24 hours): Temp Pulse Resp BP Pulse Ox 98.7 F 67 18 131/61 97 05/16/17 07:54 05/16/17 07:54 05/16/17 07:54 05/16/17 08:12 05/16/17 07:54 Intake and Output: 05/15/17 05/16/17 23:59 11:59 Intake Total 790 Output Total 640 Balance 150 - Medications Medications: Current Medications Albuterol Sulfate (Albuterol 0.083% Inhal Lashon (2.5 Mg/3 Ml) Ud) 2.5 mg INH RQ4 PRN PRN Reason: SHORTNESS of breath Last Admin: 05/16/17 05:00 Dose: 2.5 mg Albuterol/Ipratropium (Duoneb 3 Mg/0.5 Mg (3 Ml) Ud) 3 ml INH RQID [facility] Stop: 05/16/17 23:59 Last Admin: 05/16/17 07:44 Dose: 3 ml Docusate Sodium (Colace) 100 mg PO DAILY [facility] Last Admin: 05/16/17 08:12 Dose: 100 mg Enoxaparin Sodium (Lovenox) 30 mg SC DAILY [facility] PRN Reason: Protocol Last Admin: 05/16/17 08:12 Dose: 30 mg Famotidine (Pepcid) 20 mg PO BID [facility] Last Admin: 05/16/17 08:15 Dose: 20 mg Furosemide (Lasix) 20 mg PO DAILY [facility] Last Admin: 05/16/17 08:12 Dose: 20 mg Home Med (Patient's Own Medication) 2 unit INH Q12 [facility] Methylprednisolone 40 mg/ (Sodium Chloride) 50 mls @ 100 mls/hr IVPB Q12 [facility] Last Admin: 05/16/17 08:11 Dose: 100 mls/hr Ketorolac Tromethamine (Toradol) 15 mg IVP Q6 PRN PRN Reason: Pain, moderate (4-7) Last Admin: 05/15/17 17:29 Dose: 15 mg Lactulose (Enulose) 10 gm PO DAILY PRN PRN Reason: Constipation Lidocaine (Lidoderm) 1 ea TD DAILY PRN PRN Reason: Pain, Mild (1-3) Midodrine (Proamatine) 10 mg PO DAILY [facility] Last Admin: 05/16/17 08:15 Dose: 10 mg - Labs Labs: 05/16/17 04:15 05/16/17 04:15 PT 11.2 Seconds (9.8-13.1) 05/14/17 16:25 INR 1.1 (0.9-1.2) 05/14/17 16:25 APTT 26.2 Seconds (25.6-37.1) 05/14/17 16:25 Assessment and Plan (1) Bullous emphysema Status: Chronic (2) Pulmonary fibrosis Status: Chronic
[2017-05-16] MEDS ORDERED: Lactulose 10 gm/15 ml Syrup PO PRN (10:00)
[2017-05-16] MEDS: [UNRECOGNIZED DRUG - OTHER] INH SCH (10:00)
--- NOTE | 2017-05-16 10:16 | CP.PCM.PN ---
Subjective - Date & Time of Evaluation Date of Evaluation: 05/16/17 Time of Evaluation: 09:50 - Subjective Subjective: During the night, had fair amount of back pain Continues to be dyspnoic at rest Telemetry shows VVI paced rhythm BP 100 /60 mm Hg JVP flat, mild pedal oedema+ No sacral oedema Labs noted Spoke with Drs. Mitchell and West Discussed case with Dr. Gan re poss kyphoplaty It is scheduled for Friday. Objective - Vital Signs/Intake and Output Vital Signs (last 24 hours): Temp Pulse Resp BP Pulse Ox 98.7 F 67 18 131/61 97 05/16/17 07:54 05/16/17 07:54 05/16/17 07:54 05/16/17 08:12 05/16/17 07:54 - Medications Medications: Current Medications Albuterol Sulfate (Albuterol 0.083% Inhal Lashon (2.5 Mg/3 Ml) Ud) 2.5 mg INH RQ4 PRN PRN Reason: SHORTNESS of breath Last Admin: 05/16/17 05:00 Dose: 2.5 mg Albuterol/Ipratropium (Duoneb 3 Mg/0.5 Mg (3 Ml) Ud) 3 ml INH RQID [facility] Stop: 05/16/17 23:59 Last Admin: 05/16/17 07:44 Dose: 3 ml Docusate Sodium (Colace) 100 mg PO DAILY [facility] Last Admin: 05/16/17 08:12 Dose: 100 mg Enoxaparin Sodium (Lovenox) 30 mg SC DAILY [facility] PRN Reason: Protocol Last Admin: 05/16/17 08:12 Dose: 30 mg Famotidine (Pepcid) 20 mg PO BID [facility] Last Admin: 05/16/17 08:15 Dose: 20 mg Furosemide (Lasix) 20 mg PO DAILY [facility] Last Admin: 05/16/17 08:12 Dose: 20 mg Home Med (Patient's Own Medication) 2 unit INH Q12 [facility] Methylprednisolone 40 mg/ (Sodium Chloride) 50 mls @ 100 mls/hr IVPB Q12 [facility] Last Admin: 05/16/17 08:11 Dose: 100 mls/hr Ketorolac Tromethamine (Toradol) 15 mg IVP Q6 PRN PRN Reason: Pain, moderate (4-7) Last Admin: 05/15/17 17:29 Dose: 15 mg Lactulose (Enulose) 10 gm PO DAILY PRN PRN Reason: Constipation Lidocaine (Lidoderm) 1 ea TD DAILY PRN PRN Reason: Pain, Mild (1-3) Midodrine (Proamatine) 10 mg PO DAILY [facility] Last Admin: 05/16/17 08:15 Dose: 10 mg Roflumilast (Daliresp) 500 mcg PO DAILY [facility] - Labs Labs: 05/16/17 04:15 05/16/17 04:15 PT 11.2 Seconds (9.8-13.1) 05/14/17 16:25 INR 1.1 (0.9-1.2) 05/14/17 16:25 APTT 26.2 Seconds (25.6-37.1) 05/14/17 16:25
[2017-05-17] MEDS: Enoxaparin 30 mg Syringe SC SCH (09:04)
[2017-05-17] MEDS: methylPREDNISolone 40 MG in Sodium Chloride 0.9% 50 ML IVPB SCH ×2 (09:05→21:51)
[2017-05-17] MEDS: Lidocaine 5% Patch TD PRN (09:06)
[2017-05-17] MEDS: [UNRECOGNIZED DRUG - OTHER] INH SCH ×2 (10:00→23:02)
--- NOTE | 2017-05-17 12:56 | CP.PCM.PN ---
Subjective - Date & Time of Evaluation Date of Evaluation: 05/17/17 Time of Evaluation: 11:00 - Subjective Subjective: Has moderate degree of back pain Still mildly dyspnoic at rest Needs vent mask for adequate oxygenation (tends to mouth breath) Has VVI paced rhythm BP 104/70 mm Hg No signs of CHF Scheduled for kyphoplasty on Friday. Objective - Vital Signs/Intake and Output Vital Signs (last 24 hours): Temp Pulse Resp BP Pulse Ox 97.9 F 62 20 128/62 90 L 05/17/17 11:51 05/17/17 11:51 05/17/17 11:51 05/17/17 11:51 05/17/17 11:51 Intake and Output: 05/17/17 05/17/17 06:59 18:59 Intake Total 200 Balance 200 - Medications Medications: Current Medications Albuterol Sulfate (Albuterol 0.083% Inhal Lashon (2.5 Mg/3 Ml) Ud) 2.5 mg INH RQ4 PRN PRN Reason: SHORTNESS of breath Last Admin: 05/16/17 05:00 Dose: 2.5 mg Cholecalciferol (Vitamin D) 1,000 iu PO DAILY [facility] Last Admin: 05/17/17 10:15 Dose: 1,000 iu Docusate Sodium (Colace) 100 mg PO DAILY [facility] Last Admin: 05/17/17 09:03 Dose: 100 mg Enoxaparin Sodium (Lovenox) 30 mg SC DAILY [facility] PRN Reason: Protocol Last Admin: 05/17/17 09:04 Dose: 30 mg Famotidine (Pepcid) 20 mg PO BID [facility] Last Admin: 05/17/17 09:04 Dose: 20 mg Furosemide (Lasix) 20 mg PO DAILY [facility] Last Admin: 05/17/17 09:04 Dose: 20 mg Home Med (Patient's Own Medication) 2 unit INH Q12 [facility] Last Admin: 05/17/17 10:00 Dose: 2 unit Methylprednisolone 40 mg/ (Sodium Chloride) 50 mls @ 100 mls/hr IVPB Q12 [facility] Last Admin: 05/17/17 09:05 Dose: 100 mls/hr Ketorolac Tromethamine (Toradol) 15 mg IVP Q6 PRN PRN Reason: Pain, moderate (4-7) Last Admin: 05/15/17 17:29 Dose: 15 mg Lactulose (Enulose) 10 gm PO DAILY PRN PRN Reason: Constipation Lidocaine (Lidoderm) 1 ea TD DAILY PRN PRN Reason: Pain, Mild (1-3) Last Admin: 05/17/17 09:06 Dose: 1 ea Midodrine (Proamatine) 10 mg PO DAILY [facility] Last Admin: 05/17/17 09:05 Dose: 10 mg Roflumilast (Daliresp) 500 mcg PO DAILY [facility] Last Admin: 05/17/17 09:04 Dose: 500 mcg - Labs Labs: 05/16/17 04:15 05/16/17 04:15 PT 11.2 Seconds (9.8-13.1) 05/14/17 16:25 INR 1.1 (0.9-1.2) 05/14/17 16:25 APTT 26.2 Seconds (25.6-37.1) 05/14/17 16:25
[2017-05-17] MEDS: Albuterol 0.083% Inhal Sol (2.5 mg/3 mL) UD INH PRN ×2 (14:27→18:37)
[2017-05-18] MEDS: Enoxaparin 30 mg Syringe SC SCH (08:38)
[2017-05-18] MEDS: [UNRECOGNIZED DRUG - OTHER] INH SCH ×3 (08:38→21:27)
[2017-05-18] MEDS: methylPREDNISolone 40 MG in Sodium Chloride 0.9% 50 ML IVPB SCH ×2 (12:22→21:27)
--- NOTE | 2017-05-18 13:31 | CP.PCM.PN ---
Subjective - Date & Time of Evaluation Date of Evaluation: 05/18/17 Time of Evaluation: 13:00 - Subjective Subjective: Dyspnoic at rest in spite of O2 supplement by venti mask VVI paced rhythm at 60 BPM BP 104.68 mm Hg Coarse crepitations at both bases Heart sounds normal Scheduled for kyphoplasty tomorrow. Objective - Vital Signs/Intake and Output Vital Signs (last 24 hours): Temp Pulse Resp BP Pulse Ox 98.1 F 59 L 18 130/68 95 05/18/17 06:05 05/18/17 06:05 05/18/17 06:05 05/18/17 08:37 05/18/17 06:05 - Medications Medications: Current Medications Albuterol Sulfate (Albuterol 0.083% Inhal Lashon (2.5 Mg/3 Ml) Ud) 2.5 mg INH RQ4 PRN PRN Reason: SHORTNESS of breath Last Admin: 05/17/17 18:37 Dose: 2.5 mg Cholecalciferol (Vitamin D) 1,000 iu PO DAILY [facility] Last Admin: 05/18/17 08:39 Dose: 1,000 iu Docusate Sodium (Colace) 100 mg PO DAILY [facility] Last Admin: 05/18/17 08:37 Dose: 100 mg Famotidine (Pepcid) 20 mg PO BID [facility] Last Admin: 05/18/17 08:38 Dose: 20 mg Furosemide (Lasix) 20 mg PO DAILY [facility] Last Admin: 05/18/17 08:37 Dose: 20 mg Home Med (Patient's Own Medication) 2 unit INH Q12 [facility] Last Admin: 05/18/17 08:38 Dose: 2 unit Methylprednisolone 40 mg/ (Sodium Chloride) 50 mls @ 100 mls/hr IVPB Q12 [facility] Last Admin: 05/18/17 12:22 Dose: 100 mls/hr Ketorolac Tromethamine (Toradol) 15 mg IVP Q6 PRN PRN Reason: Pain, moderate (4-7) Last Admin: 05/15/17 17:29 Dose: 15 mg Lactulose (Enulose) 10 gm PO DAILY PRN PRN Reason: Constipation Lidocaine (Lidoderm) 1 ea TD DAILY PRN PRN Reason: Pain, Mild (1-3) Last Admin: 05/17/17 09:06 Dose: 1 ea Midodrine (Proamatine) 10 mg PO DAILY [facility] Last Admin: 05/18/17 08:38 Dose: 10 mg Roflumilast (Daliresp) 500 mcg PO DAILY [facility] Last Admin: 05/18/17 08:37 Dose: 500 mcg - Labs Labs: 05/16/17 04:15 05/16/17 04:15 PT 11.2 Seconds (9.8-13.1) 05/14/17 16:25 INR 1.1 (0.9-1.2) 05/14/17 16:25 APTT 26.2 Seconds (25.6-37.1) 05/14/17 16:25
[2017-05-18] MEDS: Albuterol 0.083% Inhal Sol (2.5 mg/3 mL) UD INH PRN ×2 (13:43→20:00)
[2017-05-18 22:52] LABS: ABG ALLEN TEST YES; ARTERIAL BLOOD FLOW 25; ARTERIAL BLOOD GAS HCO3 30.5 mmol/L (21-28); ARTERIAL BLOOD GAS MODE HIGH FLOW LPM; ARTERIAL BLOOD GAS O2 CAPACITY 17.7 mL/dL (16-24); ARTERIAL BLOOD GAS O2 CONTENT 16.7 ML/dL (15-23); ARTERIAL BLOOD GAS PH 7.57 (7.35-7.45); ARTERIAL BLOOD GAS PO2 54 mm/Hg (80-100); ARTERIAL BLOOD HGB O2 SAT 90.2 % (95.0-98.0); CARBOXYHEMOGLOBIN 2.6 % (0.5-1.5); HHB 5.1 % (0.0-5.0); METHEMOGLOBIN 2.1 % (0.0-3.0)
[2017-05-19] MEDS: Albuterol 0.083% Inhal Sol (2.5 mg/3 mL) UD INH PRN (00:39)
[2017-05-19 05:38] LABS: ALB/GLOB RATIO 1.1 (1.0-2.1); ALKALINE PHOSPHATASE 82 U/L (38-126); ALT/SGPT 39 U/L (21-72); AST/SGOT 33 U/L (17-59); BILIRUBIN,TOTAL 0.9 mg/dl (0.2-1.3); BLOOD UREA NITROGEN 44 mg/dl (9-20); CARBON DIOXIDE 26 mmol/L (22-30); CHLORIDE 103 mmol/L (98-107); GFR AFRICAN-AMERICAN > 60; GLUCOSE,RANDOM 163 mg/dL (75-110); POTASSIUM 4.1 MMOL/L (3.6-5.0); SODIUM 142 mmol/l (132-148); TOTAL PROTEIN 5.8 G/DL (6.3-8.2)
--- NOTE | 2017-05-19 09:04 | CP.PCM.PN ---
Subjective - Date & Time of Evaluation Date of Evaluation: 05/19/17 Time of Evaluation: 08:20 - Subjective Subjective: Patient saturating around 92-93% with HFO2 delivery (35%) Continues to have severe back pain due to collapsed vertibra VVI paced rhythm with BP 104/70 mm Hg JVP flat No central or peripheral cyanosis Today's labs show BON/Creatininof 44/1 Mg% GFR >60ml/min Electrolytes normal Discussed at length pt's precarious pulm and cardiac status with Anesthesiologist Dr. Mitchell was consulted for this purpose as well We all agree the procedure and anesthesia for it carries high risk for this frail pt If endotracheal intubation is required, pt will be extubated early in ICU so as to avoid vent dependency Review Coordinator was briefed on this possibility Pt family is aware of the risk this procedure poses for the pt (I spoke with them now regarding these issues) They understand and agree that he desperately needs relief of pain Objective - Vital Signs/Intake and Output Vital Signs (last 24 hours): Temp Pulse Resp BP Pulse Ox 98.6 F 54 L 18 119/65 94 L 05/19/17 07:49 05/19/17 07:49 05/19/17 07:59 05/19/17 07:49 05/19/17 07:49 - Medications Medications: Current Medications Albuterol Sulfate (Albuterol 0.083% Inhal Lashon (2.5 Mg/3 Ml) Ud) 2.5 mg INH RQ4 PRN PRN Reason: SHORTNESS of breath Last Admin: 05/19/17 00:39 Dose: 2.5 mg Cholecalciferol (Vitamin D) 1,000 iu PO DAILY [facility] Last Admin: 05/18/17 08:39 Dose: 1,000 iu Docusate Sodium (Colace) 100 mg PO DAILY [facility] Last Admin: 05/18/17 08:37 Dose: 100 mg Famotidine (Pepcid) 20 mg PO BID [facility] Last Admin: 05/18/17 17:06 Dose: 20 mg Furosemide (Lasix) 20 mg PO DAILY [facility] Last Admin: 05/18/17 08:37 Dose: 20 mg Home Med (Patient's Own Medication) 2 unit INH Q12 [facility] Last Admin: 05/18/17 21:27 Dose: 2 unit Methylprednisolone 40 mg/ (Sodium Chloride) 50 mls @ 100 mls/hr IVPB Q12 [facility] Last Admin: 05/18/17 21:27 Dose: 100 mls/hr Ketorolac Tromethamine (Toradol) 15 mg IVP Q6 PRN PRN Reason: Pain, moderate (4-7) Last Admin: 05/15/17 17:29 Dose: 15 mg Lactulose (Enulose) 10 gm PO DAILY PRN PRN Reason: Constipation Lidocaine (Lidoderm) 1 ea TD DAILY PRN PRN Reason: Pain, Mild (1-3) Last Admin: 05/17/17 09:06 Dose: 1 ea Midodrine (Proamatine) 10 mg PO DAILY [facility] Last Admin: 05/18/17 08:38 Dose: 10 mg Roflumilast (Daliresp) 500 mcg PO DAILY [facility] Last Admin: 05/18/17 08:37 Dose: 500 mcg - Labs Labs: 05/16/17 04:15 05/19/17 04:15 PT 11.2 Seconds (9.8-13.1) 05/14/17 16:25 INR 1.1 (0.9-1.2) 05/14/17 16:25 APTT 26.2 Seconds (25.6-37.1) 05/14/17 16:25
[2017-05-19] MEDS: [UNRECOGNIZED DRUG - OTHER] INH SCH ×2 (09:12→21:48)
[2017-05-19] MEDS: methylPREDNISolone 40 MG in Sodium Chloride 0.9% 50 ML IVPB SCH (09:16)
--- NOTE | 2017-05-19 09:27 | CP.PCM.PN ---
Subjective - Date & Time of Evaluation Date of Evaluation: 05/19/17 Time of Evaluation: 09:25 - Subjective Subjective: Case discussed this morning with PMD and anesthesia. Contemplating kyphoplasty because of continued severe back pain despite bed rest. Has done well with oxygenation using HFNC at 25L flow and 35% oxygen. SpO2 has been 90-93% consistently. Awake and cooperative with the exam. Neck is supple and trachea midline. Breath sounds are present bilaterally with diffuse dry rales. No audible wheezes, no bronchial breathing. Heart sounds are very distant with regular rhythm. No central or peripheral cyanosis. No dependant edema of ankles. Patient and family have been advised of the high risk involved because of his respiratory status. Extubation may be challenging because of the underlying pulmonary disease. Would remove ETT early on with NPPV for support in the ICU post-op.. Current medical regimen to continue, but I will reduce the steroid dose somewhat. Objective - Vital Signs/Intake and Output Vital Signs (last 24 hours): Temp Pulse Resp BP Pulse Ox 98.6 F 54 L 18 119/65 94 L 05/19/17 07:49 05/19/17 07:49 05/19/17 07:59 05/19/17 09:10 05/19/17 07:49 Intake and Output: 05/18/17 05/19/17 23:59 11:59 Intake Total 550 Output Total 750 Balance -200 - Medications Medications: Current Medications Albuterol Sulfate (Albuterol 0.083% Inhal Lashon (2.5 Mg/3 Ml) Ud) 2.5 mg INH RQ4 PRN PRN Reason: SHORTNESS of breath Last Admin: 05/19/17 00:39 Dose: 2.5 mg Cholecalciferol (Vitamin D) 1,000 iu PO DAILY [facility] Last Admin: 05/19/17 09:13 Dose: 1,000 iu Docusate Sodium (Colace) 100 mg PO DAILY [facility] Last Admin: 05/19/17 09:12 Dose: 100 mg Famotidine (Pepcid) 20 mg PO BID [facility] Last Admin: 05/19/17 09:13 Dose: 20 mg Furosemide (Lasix) 20 mg PO DAILY [facility] Last Admin: 05/19/17 09:10 Dose: 20 mg Home Med (Patient's Own Medication) 2 unit INH Q12 [facility] Last Admin: 05/19/17 09:12 Dose: 2 unit Methylprednisolone 40 mg/ (Sodium Chloride) 50 mls @ 100 mls/hr IVPB Q12 [facility] Last Admin: 05/19/17 09:16 Dose: 100 mls/hr Ketorolac Tromethamine (Toradol) 15 mg IVP Q6 PRN PRN Reason: Pain, moderate (4-7) Last Admin: 05/19/17 09:08 Dose: 15 mg Lactulose (Enulose) 10 gm PO DAILY PRN PRN Reason: Constipation Lidocaine (Lidoderm) 1 ea TD DAILY PRN PRN Reason: Pain, Mild (1-3) Last Admin: 05/17/17 09:06 Dose: 1 ea Midodrine (Proamatine) 10 mg PO DAILY [facility] Last Admin: 05/19/17 09:11 Dose: 10 mg Roflumilast (Daliresp) 500 mcg PO DAILY [facility] Last Admin: 05/19/17 09:12 Dose: 500 mcg - Labs Labs: 05/16/17 04:15 05/19/17 04:15 PT 11.2 Seconds (9.8-13.1) 05/14/17 16:25 INR 1.1 (0.9-1.2) 05/14/17 16:25 APTT 26.2 Seconds (25.6-37.1) 05/14/17 16:25 Assessment and Plan (1) Bullous emphysema Status: Chronic (2) Pulmonary fibrosis Status: Chronic
[2017-05-19] MEDS ORDERED: Lidocaine 1% Inj (20ml) ONE (13:54)
--- NOTE | 2017-05-19 16:47 | CP.PCM.PN ---
Subjective - Date & Time of Evaluation Date of Evaluation: 05/19/17 Time of Evaluation: 16:45 - Subjective Subjective: Patient seen in room determined that the kyphoplasty was going to be too risky too get diagnostic/therapeutic sacral block, which is where he is pointing to the pain, but CT did not show an insufficiency fracture Discussed with family and patient at length Objective - Vital Signs/Intake and Output Vital Signs (last 24 hours): Temp Pulse Resp BP Pulse Ox 98.3 F 60 19 136/62 96 05/19/17 15:42 05/19/17 15:42 05/19/17 15:44 05/19/17 15:42 05/19/17 15:42 - Medications Medications: Current Medications Albuterol Sulfate (Albuterol 0.083% Inhal Lashon (2.5 Mg/3 Ml) Ud) 2.5 mg INH RQ4 PRN PRN Reason: SHORTNESS of breath Last Admin: 05/19/17 00:39 Dose: 2.5 mg Cholecalciferol (Vitamin D) 1,000 iu PO DAILY [facility] Last Admin: 05/19/17 09:13 Dose: 1,000 iu Docusate Sodium (Colace) 100 mg PO DAILY [facility] Last Admin: 05/19/17 09:12 Dose: 100 mg Famotidine (Pepcid) 20 mg PO BID [facility] Last Admin: 05/19/17 16:39 Dose: 20 mg Furosemide (Lasix) 20 mg PO DAILY [facility] Last Admin: 05/19/17 09:10 Dose: 20 mg Home Med (Patient's Own Medication) 2 unit INH Q12 [facility] Last Admin: 05/19/17 09:12 Dose: 2 unit Methylprednisolone 30 mg/ (Sodium Chloride) 50 mls @ 100 mls/hr IVPB Q12 [facility] Ketorolac Tromethamine (Toradol) 15 mg IVP Q6 PRN PRN Reason: Pain, moderate (4-7) Last Admin: 05/19/17 16:37 Dose: 15 mg Lactulose (Enulose) 10 gm PO DAILY PRN PRN Reason: Constipation Lidocaine (Lidoderm) 1 ea TD DAILY PRN PRN Reason: Pain, Mild (1-3) Last Admin: 05/17/17 09:06 Dose: 1 ea Midodrine (Proamatine) 10 mg PO DAILY [facility] Last Admin: 05/19/17 09:11 Dose: 10 mg Roflumilast (Daliresp) 500 mcg PO DAILY [facility] Last Admin: 05/19/17 09:12 Dose: 500 mcg - Labs Labs: 05/16/17 04:15 05/19/17 04:15 PT 11.2 Seconds (9.8-13.1) 05/14/17 16:25 INR 1.1 (0.9-1.2) 05/14/17 16:25 APTT 26.2 Seconds (25.6-37.1) 05/14/17 16:25
[2017-05-19] MEDS: methylPREDNISolone 30 MG in Sodium Chloride 0.9% 50 ML IVPB SCH (21:43)
--- NOTE | 2017-05-20 09:03 | CP.PCM.PN ---
Subjective - Date & Time of Evaluation Date of Evaluation: 05/20/17 Time of Evaluation: 08:40 - Subjective Subjective: Appears a lot less uncomfortable today (in that can speak without being out of breath) Resp rate 20 BPM Pulse ox 92-93 on high flow O2 supplement BP 104/68 mm HG JVP flat VVI paced rhythm Scheduled for a nerve block procedure today Have spoken with daughter at length. Objective - Vital Signs/Intake and Output Vital Signs (last 24 hours): Temp Pulse Resp BP Pulse Ox 97.8 F 58 L 18 133/68 92 L 05/20/17 08:02 05/20/17 08:02 05/20/17 08:20 05/20/17 08:02 05/20/17 08:02 - Medications Medications: Current Medications Albuterol Sulfate (Albuterol 0.083% Inhal Lashon (2.5 Mg/3 Ml) Ud) 2.5 mg INH RQ4 PRN PRN Reason: SHORTNESS of breath Last Admin: 05/19/17 00:39 Dose: 2.5 mg Cholecalciferol (Vitamin D) 1,000 iu PO DAILY [facility] Last Admin: 05/19/17 09:13 Dose: 1,000 iu Docusate Sodium (Colace) 100 mg PO DAILY [facility] Last Admin: 05/19/17 09:12 Dose: 100 mg Famotidine (Pepcid) 20 mg PO BID [facility] Last Admin: 05/19/17 16:39 Dose: 20 mg Furosemide (Lasix) 20 mg PO DAILY [facility] Last Admin: 05/19/17 09:10 Dose: 20 mg Home Med (Patient's Own Medication) 2 unit INH Q12 [facility] Last Admin: 05/19/17 21:48 Dose: 2 unit Methylprednisolone 30 mg/ (Sodium Chloride) 50 mls @ 100 mls/hr IVPB Q12 [facility] Last Admin: 05/19/17 21:43 Dose: 100 mls/hr Lactulose (Enulose) 10 gm PO DAILY PRN PRN Reason: Constipation Lidocaine (Lidoderm) 1 ea TD DAILY PRN PRN Reason: Pain, Mild (1-3) Last Admin: 05/17/17 09:06 Dose: 1 ea Midodrine (Proamatine) 10 mg PO DAILY [facility] Last Admin: 05/19/17 09:11 Dose: 10 mg Roflumilast (Daliresp) 500 mcg PO DAILY [facility] Last Admin: 05/19/17 09:12 Dose: 500 mcg - Labs Labs: 05/16/17 04:15 05/19/17 04:15 PT 11.2 Seconds (9.8-13.1) 05/14/17 16:25 INR 1.1 (0.9-1.2) 05/14/17 16:25 APTT 26.2 Seconds (25.6-37.1) 05/14/17 16:25
[2017-05-20] MEDS: methylPREDNISolone 30 MG in Sodium Chloride 0.9% 50 ML IVPB SCH ×2 (09:26→20:25)
[2017-05-20] MEDS: [UNRECOGNIZED DRUG - OTHER] INH SCH ×2 (09:27→20:25)
--- NOTE | 2017-05-20 09:53 | PQF GENQUE ---
This form is a permanent part of the medical record 05/20/17 Dr. Mitchell, Would you please further clarify the COPD: Acute exacerbation or stable . Patient is admitted with sob and severe back pain s/p fall. Noted to be hypoxemic. Oxygen dependent at home. PMH: COPD, Pneumonia [address] Chest: COPD, interstitial pulmonary fibrosis and linear density LLL. Treated with nebulizers, Solumedrol , Daliresp and O2. Clarification of your documentation is requested to better reflect the severity of illness and intensity of treatment of your patient. Indicators present [] Specify: [] [] Specify: [] [] Specify: [] [] Specify: [] Location in the medical record that reflects the above clinical findings: [x] progress note dated 05/20/2017. Treatment Provided: [] PHYSICIAN'S RESPONSE Based on your medical judgment of the clinical indicators outlined above please clarify the following: [x] Practitioner response [] If unable to determine, please check the box, sign and date. Present On Admission (POA) Indicator: [x] Present at the time of admission [] Not present at the time of admission [] Clinically Undetermined In responding to this query, please exercise your independent professional judgment. The fact that a question is asked does not imply that any particular answer is desired or expected. Thank you for your clarification on this documentation. If you have any questions please call:extension [phone] * Thank you, Paula Goyal RN CD[facility]
--- NOTE | 2017-05-20 10:11 | PQF GENQUE ---
This form is a permanent part of the medical record 05/20/17 Dr. Nyla Arango, 1) Would you please clarify if there is an associated diagnosis or not to go along with the low BMI ( if you concur with the BMI findings in the EMR) 2) If yes please document along with the low BMI. EMR has the patient listed as 5' 8" weighing 112 pounds with a BMI of 17. Dietary consult noted and Ensure ordered. History of CHF, COPD, pulmonary fibrosis . Total protein and albumin normal on admission . Clarification of your documentation is requested to better reflect the severity of illness and intensity of treatment of your patient. Indicators present [] Specify: [] [] Specify: [] [] Specify: [] [] Specify: [] Location in the medical record that reflects the above clinical findings: [] Treatment Provided: [] PHYSICIAN'S RESPONSE Pt's height at this point is 5' 3" [] No additional diagnosis [] Underweight with a BMI of 17 [] Underweight with a BMI of ( please specify BMI ) [] Cachexia with a BMI of 17 [] Cachexia with a BMI of ( please specify ) [] Other diagnosis ( please specify) with a BMI of 17 [] Other diagnosis ( please specify along with BMI) [] Unable to determine Based on your medical judgment of the clinical indicators outlined above please clarify the following: [] Practitioner response [] If unable to determine, please check the box, sign and date. Present On Admission (POA) Indicator: [] Present at the time of admission [] Not present at the time of admission [] Clinically Undetermined In responding to this query, please exercise your independent professional judgment. The fact that a question is asked does not imply that any particular answer is desired or expected. Thank you for your clarification on this documentation. If you have any questions please call:ext [phone] * Thank you, Paula Goyal RN CD[facility]
--- NOTE | 2017-05-20 10:57 | CP.PCM.PN ---
Subjective - Date & Time of Evaluation Date of Evaluation: 05/20/17 Time of Evaluation: 10:57 - Subjective Subjective: This 89 year old male was admitted through the emergency room because of severe back pain and hypoxemia. 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 The COPD aspect has been stable, but the pulmonary fibrosis appears to be gradually progressive. The pattern of radiographic findings are not suggestive of IPF and he has declined lung biopsy when this was discussed in the past. His current painful condition has resulted in a change in his respiratory pattern with tachypnea which has resulted in increased space ventilation and subsequent lower oxygenation. Hopefully, when his pain is improved he will ventilate more effectively and the current oxygen needs will decrease making standard nasal canula supplement adequate. While the underlying pulmonary disease shows gradual progression, the current hypoxia appears to be more of a secondary effect due to the back pain rather than an exacerbation of his primary lung process. Objective - Vital Signs/Intake and Output Vital Signs (last 24 hours): Temp Pulse Resp BP Pulse Ox 97.8 F 58 L 18 133/68 92 L 05/20/17 08:02 05/20/17 08:02 05/20/17 08:20 05/20/17 09:27 05/20/17 08:02 Intake and Output: 05/19/17 05/20/17 23:59 11:59 Intake Total 550 Output Total 0 Balance 550 - Medications Medications: Current Medications Albuterol Sulfate (Albuterol 0.083% Inhal Lashon (2.5 Mg/3 Ml) Ud) 2.5 mg INH RQ4 PRN PRN Reason: SHORTNESS of breath Last Admin: 05/19/17 00:39 Dose: 2.5 mg Cholecalciferol (Vitamin D) 1,000 iu PO DAILY [facility] Last Admin: 05/20/17 09:26 Dose: 1,000 iu Docusate Sodium (Colace) 100 mg PO DAILY [facility] Last Admin: 05/20/17 09:26 Dose: 100 mg Famotidine (Pepcid) 20 mg PO BID [facility] Last Admin: 05/20/17 09:27 Dose: 20 mg Furosemide (Lasix) 20 mg PO DAILY [facility] Last Admin: 05/20/17 09:27 Dose: 20 mg Home Med (Patient's Own Medication) 2 unit INH Q12 [facility] Last Admin: 05/20/17 09:27 Dose: 2 unit Methylprednisolone 30 mg/ (Sodium Chloride) 50 mls @ 100 mls/hr IVPB Q12 [facility] Last Admin: 05/20/17 09:26 Dose: 100 mls/hr Lactulose (Enulose) 10 gm PO DAILY PRN PRN Reason: Constipation Lidocaine (Lidoderm) 1 ea TD DAILY PRN PRN Reason: Pain, Mild (1-3) Last Admin: 05/17/17 09:06 Dose: 1 ea Midodrine (Proamatine) 10 mg PO DAILY [facility] Last Admin: 05/20/17 09:27 Dose: 10 mg Roflumilast (Daliresp) 500 mcg PO DAILY [facility] Last Admin: 05/20/17 09:28 Dose: 500 mcg - Labs Labs: 05/16/17 04:15 05/19/17 04:15 PT 11.2 Seconds (9.8-13.1) 05/14/17 16:25 INR 1.1 (0.9-1.2) 05/14/17 16:25 APTT 26.2 Seconds (25.6-37.1) 05/14/17 16:25 Assessment and Plan (1) Bullous emphysema Status: Chronic (2) Pulmonary fibrosis Status: Chronic
[2017-05-20] MEDS ORDERED: MethylPREDNISolone Depo 40 mg/ml Inj ONE (13:11)
[2017-05-20] MEDS ORDERED: Lidocaine 1% Inj (20ml) ONE (13:12)
[2017-05-20] MEDS ORDERED: Iohexol 300 10 ML ONE (13:12)
[2017-05-20] MEDS ORDERED: Bupivacaine HCl 0.5% PF (10 ml) Inj ONE (13:12)
[2017-05-20] MEDS ORDERED: Bupivacaine HCl 0.5% PF (10 ml) Inj IJ ONE (13:15)
[2017-05-20] MEDS ORDERED: methylPREDNISolone Depo 80 mg/ml Inj IM ONE (13:15)
[2017-05-20] MEDS ORDERED: Iohexol 300 10 ML IJ ONE (13:15)
[2017-05-20] MEDS ORDERED: Lidocaine 1% Inj (20ml) IJ ONE (13:15)
--- NOTE | 2017-05-20 14:04 | CP.PCM.PN ---
Subjective - Date & Time of Evaluation Date of Evaluation: 05/20/17 Time of Evaluation: 13:55 - Subjective Subjective: 89 yo w/ CHF, pulmonary fibrosis has pain in his "butt crack," according to the patient. Kyphoplasty was canceled yesterday as it was determined that the L2 compression fracture is unlikely to contribute to the pain in the coccyx. Also , patient was not able to tolerate laying in lateral decub position, let alone prone, for the procedure. It was decided that the patient should receive interventional pain management instead. Procedure was accomplished with the patient sitting upright, with his buttock hanging off the OR table and legs straddling the bed. Under fluoroscopy guidance, 5cc of .5% marcaine and 80mg of depomedrol was injected into the sacro -coccygeal joint. Patient tolerated procedure well. Objective - Vital Signs/Intake and Output Vital Signs (last 24 hours): Temp Pulse Resp BP Pulse Ox 97.8 F 65 18 125/55 L 91 L 05/20/17 12:04 05/20/17 12:04 05/20/17 12:04 05/20/17 12:04 05/20/17 12:04 - Medications Medications: Current Medications Albuterol Sulfate (Albuterol 0.083% Inhal Lashon (2.5 Mg/3 Ml) Ud) 2.5 mg INH RQ4 PRN PRN Reason: SHORTNESS of breath Last Admin: 05/19/17 00:39 Dose: 2.5 mg Cholecalciferol (Vitamin D) 1,000 iu PO DAILY [facility] Last Admin: 05/20/17 09:26 Dose: 1,000 iu Docusate Sodium (Colace) 100 mg PO DAILY [facility] Last Admin: 05/20/17 09:26 Dose: 100 mg Famotidine (Pepcid) 20 mg PO BID [facility] Last Admin: 05/20/17 09:27 Dose: 20 mg Furosemide (Lasix) 20 mg PO DAILY [facility] Last Admin: 05/20/17:27 Dose: 20 mg Home Med (Patient's Own Medication) 2 unit INH Q12 [facility] Last Admin: 05/20/17:27 Dose: 2 unit Methylprednisolone 30 mg/ (Sodium Chloride) 50 mls @ 100 mls/hr IVPB Q12 [facility] Last Admin: 05/20/17 09:26 Dose: 100 mls/hr Lactulose (Enulose) 10 gm PO DAILY PRN PRN Reason: Constipation Lidocaine (Lidoderm) 1 ea TD DAILY PRN PRN Reason: Pain, Mild (1-3) Last Admin: 05/17/17 09:06 Dose: 1 ea Midodrine (Proamatine) 10 mg PO DAILY [facility] Last Admin: 05/20/17 09:27 Dose: 10 mg Roflumilast (Daliresp) 500 mcg PO DAILY [facility] Last Admin: 05/20/17 09:28 Dose: 500 mcg - Labs Labs: 05/16/17 04:15 05/19/17 04:15 PT 11.2 Seconds (9.8-13.1) 05/14/17 16:25 INR 1.1 (0.9-1.2) 05/14/17 16:25 APTT 26.2 Seconds (25.6-37.1) 05/14/17 16:25 - Rectal Exam Additional comments: TTP over coccyx. Assessment and Plan (1) Back injury Assessment & Plan: 89 yo man w/ coccydynia. S/p sacro-coccygeal block under local. - f/u card, pulm recommendations - reconsult PRN Status: Acute (2) Back strain Status: Acute
--- NOTE | 2017-05-20 16:29 | RAD ---
PROCEDURE: Fluoroscopy assisted pain management procedure HISTORY: PAIN MANAGEMENT COMPARISON: None TECHNIQUE: Standard protocol for this study/examination. FINDINGS: Submitted images from the current procedure: 2.0 IMPRESSION: Total fluoroscopic time (continuous mode) utilized during the procedure: 37.0 seconds
--- NOTE | 2017-05-20 18:35 | CP.PCM.PN ---
Subjective - Date & Time of Evaluation Date of Evaluation: 05/20/17 Time of Evaluation: 18:33 - Subjective Subjective: Patient seen in room good initial diagnostic yield with injection not sure how long will last and may need an ablation of the nerves I do recommend TCU stay where he can get rehab and monitor injection results Objective - Vital Signs/Intake and Output Vital Signs (last 24 hours): Temp Pulse Resp BP Pulse Ox 98.2 F 107 H 18 131/76 98 05/20/17 17:00 05/20/17 17:00 05/20/17 17:00 05/20/17 17:00 05/20/17 17:00 Intake and Output: 05/20/17 05/20/17 06:59 18:59 Intake Total 600 Balance 600 - Medications Medications: Current Medications Albuterol Sulfate (Albuterol 0.083% Inhal Lashon (2.5 Mg/3 Ml) Ud) 2.5 mg INH RQ4 PRN PRN Reason: SHORTNESS of breath Last Admin: 05/19/17 00:39 Dose: 2.5 mg Cholecalciferol (Vitamin D) 1,[address] [facility] Last Admin: 05/20/17 09:26 Dose: 1,000 iu Docusate Sodium (Colace) [address] [facility] Last Admin: 05/20/17 09:26 Dose: 100 mg Famotidine (Pepcid) [address] [facility] Last Admin: 05/20/17 16:41 Dose: 20 mg Furosemide (Lasix) [address] [facility] Last Admin: 05/20/17 09:27 Dose: 20 mg Home Med (Patient's Own Medication) 2 unit INH Q12 [facility] Last Admin: 05/20/17 09:27 Dose: 2 unit Methylprednisolone 30 mg/ (Sodium Chloride) 50 mls @ 100 mls/hr IVPB Q12 [facility] Last Admin: 05/20/17 09:26 Dose: 100 mls/hr Lactulose (Enulose) 10 gm PO DAILY PRN PRN Reason: Constipation Lidocaine (Lidoderm) 1 ea TD DAILY PRN PRN Reason: Pain, Mild (1-3) Last Admin: 05/17/17 09:06 Dose: 1 ea Midodrine (Proamatine) [address] [facility] Last Admin: 05/20/17 09:27 Dose: 10 mg Roflumilast (Daliresp) 500 mcg PO DAILY [facility] Last Admin: 05/20/17 09:28 Dose: 500 mcg - Labs Labs: 05/16/17 04:15 05/19/17 04:15 PT 11.2 Seconds (9.8-13.1) 05/14/17 16:25 INR 1.1 (0.9-1.2) 05/14/17 16:25 APTT 26.2 Seconds (25.6-37.1) 05/14/17 16:25
[2017-05-21] MEDS: Albuterol 0.083% Inhal Sol (2.5 mg/3 mL) UD INH PRN ×2 (00:51→13:11)
--- NOTE | 2017-05-21 02:43 | OP ---
PROCEDURE DATE: 05/20/2017 PREOPERATIVE DIAGNOSIS: Coccydynia. POSTOPERATIVE DIAGNOSIS: Coccydynia. PROCEDURE: Sacro-coccygeal joint steroid injection. SURGEON: Felicia Mills M.D. TYPE OF ANESTHESIA: Local anesthesia. ANESTHESIA ADMINISTERED BY: Dr. Hatfield. COMPLICATIONS: None. SPECIMEN: None. DESCRIPTION OF PROCEDURE: As follows, after we had discussion of the procedure with the patient including its risks, benefits, alternatives, outcome data, possibility of no effects or increased pain, patient consented to the procedure. He denies any recent infections, bleeding tendencies or being on anticoagulants. Decision was then made to proceed to the OR. Previously, the kyphoplasty has been canceled due to the patient's inability to tolerate sitting in lateral decubitus position or prone position. For the purpose of this injection, patient was placed in a sitting position with his buttocks hanging off the end of the table. The fluoroscopy was positioned in a lateral view position and the procedure was performed by me as I stand at the end of the OR table. The patient's sacral region was first cleaned, prepped in the usual sterile fashion and sterile technique was adhered to during the entire procedure. The sacrococcygeal ligament was visualized on lateral fluoroscopy view. The skin overlying this area was then infiltrated with 1% Xylocaine using 25 gauge needle. Subsequently, a 27-gauge 1-1/2-inch needle was then inserted perpendicular to the skin until tip of needle walk into the sacrococcygeal joint. The tip of needle was placed at the mid position of the joint. Due to the angle of the joint, the needle cannot traverse the joint in its entirety. However, after appropriate placement of the needle, approximately 0.5 mL of Isovue contrast was injected and the contrast was observed spreading to the anterior border of the sacrococcygeal joint. At this point, after negative aspiration, approximately 5 mL of 0.5% Marcaine and Depo-Medrol mixture was gradually injected. The needle was then removed and patient was then returned to his ICU bed and his vital signs were stable throughout. High flow oxygen was maintained during the entire procedure. The patient tolerated the procedure well and will be returned to his room with followup in 2-4 hours. The patient was observed on the floor in approximately 2 hours after the procedure and he had tolerated the procedure well. His respiratory condition was at baseline. Felicia Mills MD [facility] # [id number]
--- NOTE | 2017-05-21 09:27 | CP.PCM.PN ---
Subjective - Date & Time of Evaluation Date of Evaluation: 05/21/17 Time of Evaluation: 08:40 - Subjective Subjective: Still has soreness at the injection site Got pt out of bed and he breathes and coughs a lot better sitting in a chair Still quite dyspnoic at rest O2 sat at 92% with high flow O2 supplement (FiO2 35%) JVP flat, no pedal oedema With this degree of resp insufficiency will pt tolerate any PT involved in TCU or [facility]?? Will discuss this with Drs. Dodson and Paula Objective - Vital Signs/Intake and Output Vital Signs (last 24 hours): Temp Pulse Resp BP Pulse Ox 97.8 F 58 L 18 124/74 95 05/21/17 08:00 05/21/17 08:00 05/21/17 08:00 05/21/17 08:00 05/21/17 08:00 - Medications Medications: Current Medications Albuterol Sulfate (Albuterol 0.083% Inhal Lashon (2.5 Mg/3 Ml) Ud) 2.5 mg INH RQ4 PRN PRN Reason: SHORTNESS of breath Last Admin: 05/21/17 00:51 Dose: 2.5 mg Cholecalciferol (Vitamin D) 1,000 iu PO DAILY [facility] Last Admin: 05/20/17 09:26 Dose: 1,000 iu Docusate Sodium (Colace) 100 mg PO DAILY [facility] Last Admin: 05/20/17 09:26 Dose: 100 mg Famotidine (Pepcid) 20 mg PO BID [facility] Last Admin: 05/20/17 16:41 Dose: 20 mg Furosemide (Lasix) 20 mg PO DAILY [facility] Last Admin: 05/20/17 09:27 Dose: 20 mg Home Med (Patient's Own Medication) 2 unit INH Q12 [facility] Last Admin: 05/20/17 20:25 Dose: 2 unit Methylprednisolone 30 mg/ (Sodium Chloride) 50 mls @ 100 mls/hr IVPB Q12 [facility] Last Admin: 05/20/17 20:25 Dose: 100 mls/hr Lactulose (Enulose) 10 gm PO DAILY PRN PRN Reason: Constipation Lidocaine (Lidoderm) 1 ea TD DAILY PRN PRN Reason: Pain, Mild (1-3) Last Admin: 05/17/17 09:06 Dose: 1 ea Midodrine (Proamatine) 10 mg PO DAILY [facility] Last Admin: 05/20/17 09:27 Dose: 10 mg Roflumilast (Daliresp) 500 mcg PO DAILY [facility] Last Admin: 05/20/17 09:28 Dose: 500 mcg - Labs Labs: 05/16/17 04:15 05/19/17 04:15 PT 11.2 Seconds (9.8-13.1) 05/14/17 16:25 INR 1.1 (0.9-1.2) 05/14/17 16:25 APTT 26.2 Seconds (25.6-37.1) 05/14/17 16:25
[2017-05-21] MEDS: methylPREDNISolone 30 MG in Sodium Chloride 0.9% 50 ML IVPB SCH ×2 (09:53→20:55)
[2017-05-21] MEDS: [UNRECOGNIZED DRUG - OTHER] INH SCH ×2 (09:54→20:55)
[2017-05-21] MEDS: Lidocaine 5% Patch TD PRN (09:54)
[2017-05-21] MEDS ORDERED: Sodium Chloride 3% for Inhalation 4 ML VIAL.NEB IH PRN (11:18)
--- NOTE | 2017-05-21 11:28 | CP.PCM.PN ---
Subjective - Date & Time of Evaluation Date of Evaluation: 05/21/17 Time of Evaluation: 11:27 - Subjective Subjective: The patient was seen on rounds in the telemetry unit. There was initial improvement in his pain subsequent to the nerve block yesterday, but this was only temporary. He is complaining of significant pain once again today and his breathing pattern is abnormal because of his discomfort. There is a tendency for shallow rapid breathing through his mouth. He maintains an adequate SPO2 while on high flow nasal cannula which will be decreased today to 20 L and 30% oxygen. Breath sounds are diminished bilaterally and there are scattered rhonchi throughout both lungs. No audible wheezing is appreciated. No bronchial breathing or egophony is heard. He does describe a dark "bloody" expectoration and sputum culture as well as cytology was requested today. Further reductions in his oxygen supplementation will be dependent upon the outcome of the above. Solu-Medrol will be reduced to 40 mg once daily after today's doses. Objective - Vital Signs/Intake and Output Vital Signs (last 24 hours): Temp Pulse Resp BP Pulse Ox 97.8 F 58 L 18 124/74 95 05/21/17 08:00 05/21/17 08:00 05/21/17 08:00 05/21/17 09:56 05/21/17 08:00 Intake and Output: 05/20/17 05/21/17 23:59 11:59 Intake Total 600 Balance 600 - Medications Medications: Current Medications Albuterol Sulfate (Albuterol 0.083% Inhal Lashon (2.5 Mg/3 Ml) Ud) 2.5 mg INH RQ4 PRN PRN Reason: SHORTNESS of breath Last Admin: 05/21/17 00:51 Dose: 2.5 mg Cholecalciferol (Vitamin D) 1,000 iu PO DAILY [facility] Last Admin: 05/21/17 09:56 Dose: 1,000 iu Docusate Sodium (Colace) 100 mg PO DAILY [facility] Last Admin: 05/21/17 09:55 Dose: 100 mg Famotidine (Pepcid) 20 mg PO BID [facility] Last Admin: 05/21/17 09:55 Dose: 20 mg Furosemide (Lasix) 20 mg PO DAILY [facility] Last Admin: 05/21/17 09:56 Dose: 20 mg Guaifenesin (Mucinex La) 600 mg PO Q12 [facility] Home Med (Patient's Own Medication) 2 unit INH Q12 [facility] Last Admin: 05/21/17 09:54 Dose: 2 unit Methylprednisolone 30 mg/ (Sodium Chloride) 50 mls @ 100 mls/hr IVPB Q12 [facility] Last Admin: 05/21/17 09:53 Dose: 100 mls/hr Ketorolac Tromethamine (Toradol) 30 mg IVP Q6 PRN PRN Reason: Pain, moderate (4-7) Lactulose (Enulose) 10 gm PO DAILY PRN PRN Reason: Constipation Lidocaine (Lidoderm) 1 ea TD DAILY PRN PRN Reason: Pain, Mild (1-3) Last Admin: 05/21/17 09:54 Dose: 1 ea Midodrine (Proamatine) 10 mg PO DAILY [facility] Last Admin: 05/21/17 09:56 Dose: 10 mg Roflumilast (Daliresp) 500 mcg PO DAILY [facility] Last Admin: 05/21/17 09:55 Dose: 500 mcg - Labs Labs: 05/16/17 04:15 05/19/17 04:15 PT 11.2 Seconds (9.8-13.1) 05/14/17 16:25 INR 1.1 (0.9-1.2) 05/14/17 16:25 APTT 26.2 Seconds (25.6-37.1) 05/14/17 16:25 Assessment and Plan (1) Bullous emphysema Status: Chronic (2) Pulmonary fibrosis Status: Chronic
[2017-05-21] MEDS ORDERED: Acetaminophen-Codeine 300/30 mg Tab PO PRN (11:52)
--- NOTE | 2017-05-21 16:59 | CP.PCM.PN ---
Subjective - Date & Time of Evaluation Date of Evaluation: 05/21/17 Time of Evaluation: 16:58 - Subjective Subjective: block quickly wore off which is not a surprise given that the steroid would not likely treat the symptoms just the Lidocaine question of a nerve ablation would be up to anesthesia he is not stable from a respiratory view and at this point TCU would not take him Tylenol #3 given with measured benefit continue current care Objective - Vital Signs/Intake and Output Vital Signs (last 24 hours): Temp Pulse Resp BP Pulse Ox 97.9 F 60 18 94/55 L 94 L 05/21/17 15:38 05/21/17 15:38 05/21/17 15:38 05/21/17 15:38 05/21/17 15:38 - Medications Medications: Current Medications Acetaminophen/Codeine Phosphate (Tylenol/Codeine 300 Mg/30 Mg) 1 tab PO Q6 PRN PRN Reason: Pain, severe (8-10) Last Admin: 05/21/17 13:38 Dose: 1 tab Albuterol Sulfate (Albuterol 0.083% Inhal Lashon (2.5 Mg/3 Ml) Ud) 2.5 mg INH RQ4 PRN PRN Reason: SHORTNESS of breath Last Admin: 05/21/17 13:11 Dose: 2.5 mg Cholecalciferol (Vitamin D) 1,000 iu PO DAILY [facility] Last Admin: 05/21/17 09:56 Dose: 1,000 iu Docusate Sodium (Colace) 100 mg PO DAILY [facility] Last Admin: 05/21/17 09:55 Dose: 100 mg Famotidine (Pepcid) 20 mg PO BID [facility] Last Admin: 05/21/17 09:55 Dose: 20 mg Furosemide (Lasix) 20 mg PO DAILY [facility] Last Admin: 05/21/17 09:56 Dose: 20 mg Guaifenesin (Mucinex La) 600 mg PO Q12 [facility] Home Med (Patient's Own Medication) 2 unit INH Q12 [facility] Last Admin: 05/21/17 09:54 Dose: 2 unit Methylprednisolone 30 mg/ (Sodium Chloride) 50 mls @ 100 mls/hr IVPB Q12 [facility] Last Admin: 05/21/17 09:53 Dose: 100 mls/hr Ketorolac Tromethamine (Toradol) 30 mg IVP Q6 PRN PRN Reason: Pain, moderate (4-7) Last Admin: 05/21/17 11:15 Dose: 30 mg Lactulose (Enulose) 10 gm PO DAILY PRN PRN Reason: Constipation Lidocaine (Lidoderm) 1 ea TD DAILY PRN PRN Reason: Pain, Mild (1-3) Last Admin: 05/21/17 09:54 Dose: 1 ea Midodrine (Proamatine) 10 mg PO DAILY [facility] Last Admin: 05/21/17 09:56 Dose: 10 mg Roflumilast (Daliresp) 500 mcg PO DAILY [facility] Last Admin: 05/21/17 09:55 Dose: 500 mcg - Labs Labs: 05/16/17 04:15 05/19/17 04:15 PT 11.2 Seconds (9.8-13.1) 05/14/17 16:25 INR 1.1 (0.9-1.2) 05/14/17 16:25 APTT 26.2 Seconds (25.6-37.1) 05/14/17 16:25
[2017-05-21] MEDS: guaiFENesin 600 mg ER Tab PO SCH (20:55)
[2017-05-22 07:57] VITALS: RESP 22
--- NOTE | 2017-05-22 08:52 | CP.PCM.PN ---
Subjective - Date & Time of Evaluation Date of Evaluation: 05/22/17 Time of Evaluation: 08:10 - Subjective Subjective: Appears slightly more comfortable compared to yesterday Still dyspnoic but tolerates a slightly lower FiO2 VVI paced rhythm BP 108/70 mm Hg [place] crepitations at both bases If pt will tolerate further weaning of FiO2, will consider TCU/[facility] Objective - Vital Signs/Intake and Output Vital Signs (last 24 hours): Temp Pulse Resp BP Pulse Ox 97.6 F 60 22 111/67 94 L 05/22/17 07:57 05/22/17 07:57 05/22/17 07:57 05/22/17 07:57 05/22/17 07:57 - Medications Medications: Current Medications Acetaminophen/Codeine Phosphate (Tylenol/Codeine 300 Mg/30 Mg) 1 tab PO Q6 PRN PRN Reason: Pain, severe (8-10) Last Admin: 05/21/17 13:38 Dose: 1 tab Albuterol Sulfate (Albuterol 0.083% Inhal Lashon (2.5 Mg/3 Ml) Ud) 2.5 mg INH RQ4 PRN PRN Reason: SHORTNESS of breath Last Admin: 05/21/17 13:11 Dose: 2.5 mg Cholecalciferol (Vitamin D) 1,000 iu PO DAILY [facility] Last Admin: 05/21/17 09:56 Dose: 1,000 iu Docusate Sodium (Colace) 100 mg PO DAILY [facility] Last Admin: 05/21/17 09:55 Dose: 100 mg Famotidine (Pepcid) 20 mg PO BID [facility] Last Admin: 05/21/17 17:40 Dose: 20 mg Furosemide (Lasix) 20 mg PO DAILY [facility] Last Admin: 05/21/17 09:56 Dose: 20 mg Guaifenesin (Mucinex La) 600 mg PO Q12 [facility] Last Admin: 05/21/17 20:55 Dose: 600 mg Home Med (Patient's Own Medication) 2 unit INH Q12 [facility] Last Admin: 05/21/17 20:55 Dose: 2 unit Methylprednisolone 40 mg/ (Sodium Chloride) 50 mls @ 100 mls/hr IVPB DAILY [facility] Ketorolac Tromethamine (Toradol) 30 mg IVP Q6 PRN PRN Reason: Pain, moderate (4-7) Last Admin: 05/21/17 18:04 Dose: 30 mg Lactulose (Enulose) 10 gm PO DAILY PRN PRN Reason: Constipation Lidocaine (Lidoderm) 1 ea TD DAILY PRN PRN Reason: Pain, Mild (1-3) Last Admin: 05/21/17 09:54 Dose: 1 ea Midodrine (Proamatine) 10 mg PO DAILY [facility] Last Admin: 05/21/17 09:56 Dose: 10 mg Roflumilast (Daliresp) 500 mcg PO DAILY [facility] Last Admin: 05/21/17 09:55 Dose: 500 mcg - Labs Labs: 05/16/17 04:15 05/19/17 04:15 PT 11.2 Seconds (9.8-13.1) 05/14/17 16:25 INR 1.1 (0.9-1.2) 05/14/17 16:25 APTT 26.2 Seconds (25.6-37.1) 05/14/17 16:25
[2017-05-22] MEDS: guaiFENesin 600 mg ER Tab PO SCH (08:59)
[2017-05-22] MEDS: [UNRECOGNIZED DRUG - OTHER] INH SCH (08:59)
[2017-05-22] MEDS: Lidocaine 5% Patch TD PRN (09:01)
[2017-05-22] MEDS ORDERED: methylPREDNISolone 40 MG in Sodium Chloride 0.9% 50 ML IVPB ONE (12:00)
[2017-05-22 12:15] VITALS: BP 94/50; PULSE 69; TEMP 97.4; O2SAT 97
--- NOTE | 2017-05-22 14:18 | CP.PCM.PN ---
Subjective - Date & Time of Evaluation Date of Evaluation: 05/22/17 Time of Evaluation: 10:00 - Subjective Subjective: The patient was seen on telemetry. He relates significant improvement in his pain after the application of topical lidocaine. His breathing has been improved as a result of the above and he has been placed on oxygen via nasal cannula at 4 L/m. SPO2 is noted to be 94-95% on the above settings today. He does have sputum and a collection container at the bedside which appears grossly purulent and dark brown in color. One specimen has been sent to laboratory for culture and another for cytology. Cough is congested and some rhonchi are heard throughout the lungs. Normal wheezing is appreciated. No bronchial breathing or egophony. Dry to medium rales are heard in both lungs. Patient will be placed on empiric antibiotic coverage for gram-negative rods reported today while his sputum culture is processed. He has tolerated switch to traditional nasal cannula oxygen at 4 L/m and can be transferred to subacute rehabilitation when a bed is available. Solu-Medrol has been reduced to 40 mg once daily. Objective - Vital Signs/Intake and Output Vital Signs (last 24 hours): Temp Pulse Resp BP Pulse Ox 97.4 F L 69 22 94/50 L 97 05/22/17 13:00 05/22/17 13:00 05/22/17 13:00 05/22/17 13:00 05/22/17 13:00 - Medications Medications: Current Medications Acetaminophen/Codeine Phosphate (Tylenol/Codeine 300 Mg/30 Mg) 1 tab PO Q6 PRN PRN Reason: Pain, severe (8-10) Last Admin: 05/21/17 13:38 Dose: 1 tab Albuterol Sulfate (Albuterol 0.083% Inhal Lashon (2.5 Mg/3 Ml) Ud) 2.5 mg INH RQ4 PRN PRN Reason: SHORTNESS of breath Last Admin: 05/21/17 13:11 Dose: 2.5 mg Cholecalciferol (Vitamin D) 1,000 iu PO DAILY [facility] Last Admin: 05/22/17 09:00 Dose: 1,000 iu Docusate Sodium (Colace) 100 mg PO DAILY [facility] Last Admin: 05/22/17 09:00 Dose: 100 mg Famotidine (Pepcid) 20 mg PO BID [facility] Last Admin: 05/22/17 08:59 Dose: 20 mg Furosemide (Lasix) 20 mg PO DAILY [facility] Last Admin: 05/22/17 09:00 Dose: 20 mg Guaifenesin (Mucinex La) 600 mg PO Q12 [facility] Last Admin: 05/22/17 08:59 Dose: 600 mg Home Med (Patient's Own Medication) 2 unit INH Q12 [facility] Last Admin: 05/22/17 08:59 Dose: 2 unit Methylprednisolone 40 mg/ (Sodium Chloride) 50 mls @ 100 mls/hr IVPB DAILY [facility] Ketorolac Tromethamine (Toradol) 30 mg IVP Q6 PRN PRN Reason: Pain, moderate (4-7) Last Admin: 05/21/17 18:04 Dose: 30 mg Lactulose (Enulose) 10 gm PO DAILY PRN PRN Reason: Constipation Lidocaine (Lidoderm) 1 ea TD DAILY PRN PRN Reason: Pain, Mild (1-3) Last Admin: 05/22/17 09:01 Dose: 1 ea Midodrine (Proamatine) 10 mg PO DAILY [facility] Last Admin: 05/22/17 09:00 Dose: 10 mg Ondansetron HCl (Zofran Inj) 4 mg IVP Q6 PRN PRN Reason: Nausea/Vomiting Last Admin: 05/22/17 10:00 Dose: 4 mg Roflumilast (Daliresp) 500 mcg PO DAILY [facility] Last Admin: 05/22/17 09:00 Dose: 500 mcg - Labs Labs: 05/16/17 04:15 05/19/17 04:15 PT 11.2 Seconds (9.8-13.1) 05/14/17 16:25 INR 1.1 (0.9-1.2) 05/14/17 16:25 APTT 26.2 Seconds (25.6-37.1) 05/14/17 16:25 Assessment and Plan (1) Bullous emphysema Status: Chronic (2) Pulmonary fibrosis Status: Chronic (3) Acute purulent bronchitis Status: Acute
[2017-05-22] MEDS ORDERED: Cefepime 1 GM in Sodium Chloride 0.9% 100 ML IVPB SCH (14:30)
--- NOTE | 2017-05-23 08:02 | CP.PCM.DIS ---
Provider - Provider Date of Admission: 05/15/17 11:27 Attending physician: Jason Arango MD Time Spent in preparation of Discharge (in minutes): 30 Hospital Course - Lab Results Lab Results: Micro Results 05/21/17 16:00 Sputum Gram Stain - Preliminary Most Recent Lab Values WBC 4.7 K/uL (4.8-10.8) L 05/16/17 04:15 RBC 4.10 Mil/uL (4.40-5.90) L 05/16/17 04:15 Hgb 13.1 g/dL (12.0-18.0) 05/16/17 04:15 Hct 39.0 % (35.0-51.0) 05/16/17 04:15 MCV 95.2 fl (80.0-94.0) H 05/16/17 04:15 MCH 32.1 pg (27.0-31.0) H 05/16/17 04:15 MCHC 33.7 g/dL (33.0-37.0) 05/16/17 04:15 RDW 14.4 % (11.5-14.5) 05/16/17 04:15 Plt Count 182 K/uL (130-400) 05/16/17 04:15 MPV 9.0 fl (7.2-11.7) 05/14/17 16:00 Neut % (Auto) 75.1 % (50.0-75.0) H 05/14/17 16:00 Lymph % (Auto) 9.5 % (20.0-40.0) L 05/14/17 16:00 [place] % (Auto) 11.1 % (0.0-10.0) H 05/14/17 16:00 Eos % (Auto) 3.5 % (0.0-4.0) 05/14/17 16:00 Baso % (Auto) 0.8 % (0.0-2.0) 05/14/17 16:00 Neut # 4.9 K/uL (1.8-7.0) 05/14/17 16:00 Lymph # 0.6 K/uL (1.0-4.3) L 05/14/17 16:00 [place] # 0.7 K/uL (0.0-0.8) 05/14/17 16:00 Eos # 0.2 K/uL (0.0-0.7) 05/14/17 16:00 Baso # 0.1 K/uL (0.0-0.2) 05/14/17 16:00 Neutrophils % (Manual) 71 % (42-75) 05/14/17 16:00 Band Neutrophils % 3 % (0-2) H 05/14/17 16:00 Lymphocytes % (Manual) 10 % (20-50) L 05/14/17 16:00 Monocytes % (Manual) 11 % (0-10) H 05/14/17 16:00 Eosinophils % (Manual) 4 % (0-7) 05/14/17 16:00 Basophils % (Manual) 1 % (0-2) 05/14/17 16:00 Platelet Estimate Normal (NORMAL) 05/14/17 16:00 Large Platelets Present 05/14/17 16:00 Macrocytosis (manual) Slight 05/14/17 16:00 PT 11.2 Seconds (9.8-13.1) 05/14/17 16:25 INR 1.1 (0.9-1.2) 05/14/17 16:25 APTT 26.2 Seconds (25.6-37.1) 05/14/17 16:25 pCO2 32 mm/Hg (35-45) L 05/18/17 22:45 pO2 54 mm/Hg (80-100) L 05/18/17 22:45 HCO3 30.5 mmol/L (21-28) H 05/18/17 22:45 ABG pH 7.57 (7.35-7.45) H 05/18/17 22:45 ABG Total CO2 30.3 mmol/L (22-28) H 05/18/17 22:45 ABG O2 Saturation 94.6 % (95-98) L 05/18/17 22:45 ABG O2 Content 16.7 ML/dL (15-23) 05/18/17 22:45 ABG Base Excess 7.4 mmol/L (-2.0-3.0) H 05/18/17 22:45 ABG Hemoglobin 13.2 g/dL (11.7-17.4) 05/18/17 22:45 ABG Carboxyhemoglobin 2.6 % (0.5-1.5) H 05/18/17 22:45 POC ABG HHb (Measured) 5.1 % (0.0-5.0) H 05/18/17 22:45 ABG Methemoglobin 2.1 % (0.0-3.0) 05/18/17 22:45 ABG O2 Capacity 17.7 mL/dL (16-24) 05/18/17 22:45 López Test Yes 05/18/17 22:45 ABG Potassium 4.1 mmol/L (3.6-5.2) 05/14/17 16:04 A-a O2 Difference 156.0 mm/Hg 05/18/17 22:45 Hgb O2 Saturation 90.2 % (95.0-98.0) L 05/18/17 22:45 Sodium 139.0 mmol/L (132-148) 05/14/17 16:04 Chloride 105.0 mmol/L (98-107) 05/14/17 16:04 Glucose 131 mg/dL (75-110) H 05/14/17 16:04 Lactate 1.1 mmol/L (0.7-2.1) 05/14/17 16:04 Liter Flow 25 05/18/17 22:45 Vent Mode High flow lpm 05/18/17 22:45 FiO2 35.0 % 05/18/17 22:45 Sodium 142 mmol/l (132-148) 05/19/17 04:15 Potassium 4.1 MMOL/L (3.6-5.0) 05/19/17 04:15 Chloride 103 mmol/L (98-107) 05/19/17 04:15 Carbon Dioxide 26 mmol/L (22-30) 05/19/17 04:15 Anion Gap 17 (10-20) 05/19/17 04:15 BUN 44 mg/dl (9-20) H 05/19/17 04:15 Creatinine 1.0 mg/dL (0.8-1.5) 05/19/17 04:15 Est GFR ( Amer) > 60 05/19/17 04:15 Est GFR (Non-Af Amer) > 60 05/19/17 04:15 Random Glucose 163 mg/dL (75-110) H 05/19/17 04:15 Calcium 9.0 mg/dL (8.4-10.2) 05/19/17 04:15 Phosphorus 3.0 mg/dl (2.5-4.5) 05/14/17 16:00 Magnesium 2.4 MG/DL (1.6-2.3) H 05/14/17 16:00 Total Bilirubin 0.9 mg/dl (0.2-1.3) 05/19/17 04:15 AST 33 U/L (17-59) 05/19/17 04:15 ALT 39 U/L (21-72) 05/19/17 04:15 Alkaline Phosphatase 82 U/L (38-126) 05/19/17 04:15 Troponin I 0.0320 ng/mL (0.00-0.120) 05/14/17 16:00 NT-Pro-B Natriuret Pep 73339 pg/ml (0-900) H 05/14/17 16:00 Total Protein 5.8 G/DL (6.3-8.2) L 05/19/17 04:15 Albumin 3.1 g/dL (3.5-5.0) L 05/19/17 04:15 Globulin 2.8 gm/dL (2.2-3.9) 05/19/17 04:15 Albumin/Globulin Ratio 1.1 (1.0-2.1) 05/19/17 04:15 25-OH Vitamin D Total 31.5 NG/ML (30.0-100.0) 05/16/17 10:00 Arterial Blood Potassium 4.1 mmol/L (3.6-5.2) 05/14/17 16:04 Blood Type A NEGATIVE 05/14/17 16:00 Antibody Screen Negative 05/14/17 16:00 BBK History Checked No verified bt 05/14/17 16:00 - Hospital Course Hospital Course: This 89-year-old man was sent to the emergency room from the office off his pain management doctor when he was found to be profoundly short of breath and mildly cyanotic in his office where he had gone for management off back pain as a consequence of an injury he had suffered approximately 2 weeks back during a fall. The patient has been frail for more than 10 years and had a diagnosis of pulmonary fibrosis. He had had a pacemaker implanted more than 10 years back which was revised couple of years back. At this point he had a VVI pacemaker. He had a history of nephrotic syndrome approximately 6 years back which subsequently had resolved. The patient also had orthostatic hypotension for which she took Midodrin. On arrival in the emergency room the patient was found to be profoundly short of breath and on an FiO2 of 32% he had a PCO2 of 37 mmHg and by mouth to of 60 mmHg. The patient was hospitalized and was seen by his pulmonary physician as well as pain management physician. Upon admission he was found to be in a VVI paced rhythm and had no overt evidence of volume overload while being managed to 20 mg of furosemide every day. The patient had excruciating back pain and a CT scan of the spine showed evidence of a collapsed L2 vertebra it was thought that a kyphoplasty involving this particular vertebral body would resolve his pain. Arrangements were made with the interventional radiologist to carry out this kyphoplasty but during an examination before the procedure it was determined that the pain was not due to the collapsed vertebra but at the sacrococcygeal joint atraumatic dislocation was the cause. Accordingly on the following day an epidural injection of steroid -induced lidocaine in this joint was made with moderate degree of relief. In the meantime the patient continued to display severe respiratory insufficiency and on May 18 while on high flow oxygen delivery and an FiO2 of 35% his PCO2 was 32 mmHg a pO2 was 54 mmHg. With high flow oxygen delivery his respiratory status slightly improved. Review of his old echocardiogram from October 2015 had revealed evidence of severe left ventricular systolic dysfunction with an ejection fraction in the range of 10-15%. With appropriate respiratory care his pulse oximetry became more stable and the patient was then sent to transitional care unit for recuperation before eventually and hopefully being sent home. His case was discussed with his family and the possibility that he may not be able to return home and live in independent life again and may need chronic institutionalization was discussed with them. His final diagnosis was profound ventilatory insufficiency secondary to COPD and pulmonary fibrosis. Sacrococcygeal dislocation secondary to traumatic injury with severe lower back pain area severe left ventricular systolic dysfunction with congestive cardiac failure, which was systolic and chronic. Status post VVI pacemaker implant. Orthostatic hypotension. Discharge Exam - Head Exam Head Exam: ATRAUMATIC, NORMOCEPHALIC Discharge Plan - Discharge Medications Prescriptions: methylPREDNISolone [Solu-MEDROL] 40 mg IV DAILY #5 ml - Follow Up Plan Condition: SERIOUS Disposition: REHAB FACILITY/REHAB UNIT Instructions: Pulmonary Fibrosis (DC) Additional Instructions: patient cleared for discharge to TCU today by and cont. 4L o2 via NC cont. Medrol 40 mg ivpb daily Referrals: Nakia Arango MD [Staff Provider] - Geovany Mitchell MD [Staff Provider] -
[2017-05-23] MEDS ORDERED: methylPREDNISolone 40 MG in Sodium Chloride 0.9% 50 ML IVPB SCH (09:00)
== END 2017-05-22 15:00 | DRG 543 ==
LOC: H.ER 15:11 → H.ERHOLD 16:36 → H.TEL 18:46 → OBSVTOIN 05-15 11:27 → H.TEL 05-16 18:38
PROVIDERS: ADMIT Internal Medicine Cardiovascular Disease; ATTEND Internal Medicine Cardiovascular Disease
PROC: 3E0F73Z Introduction of Anti-inflammatory into Respiratory Tract, Via Natural or Artificial Opening (ICD-10-PCS; 2017-05-15)
PROC: 3E0234Z Introduction of Serum, Toxoid and Vaccine into Muscle, Percutaneous Approach (ICD-10-PCS; 2017-05-15)
PROC: 3E0F7GC Introduction of Other Therapeutic Substance into Respiratory Tract, Via Natural or Artificial Opening (ICD-10-PCS; 2017-05-15)
PROC: 3E0U33Z Introduction of Anti-inflammatory into Joints, Percutaneous Approach (ICD-10-PCS; 2017-05-20)
PROC: 3E0U3BZ Introduction of Anesthetic Agent into Joints, Percutaneous Approach (ICD-10-PCS; principal; 2017-05-20 10:45)
DX: M48.56XA Collapsed vertebra, not elsewhere classified, lumbar region, initial encounter for fracture (principal); I50.22 Chronic systolic (congestive) heart failure; J44.0 Chronic obstructive pulmonary disease with (acute) lower respiratory infection; J44.1 Chronic obstructive pulmonary disease with (acute) exacerbation; Z68.1 Body mass index [BMI] 19.9 or less, adult; S33.2XXA Dislocation of sacroiliac and sacrococcygeal joint, initial encounter; J84.10 Pulmonary fibrosis, unspecified; J20.9 Acute bronchitis, unspecified; I11.0 Hypertensive heart disease with heart failure; M53.3 Sacrococcygeal disorders, not elsewhere classified; I95.1 Orthostatic hypotension; R09.02 Hypoxemia; E78.00 Pure hypercholesterolemia, unspecified; W18.30XA Fall on same level, unspecified, initial encounter; Z23 Encounter for immunization; Z95.0 Presence of cardiac pacemaker; Z99.81 Dependence on supplemental oxygen; Z87.891 Personal history of nicotine dependence; Z79.82 Long term (current) use of aspirin; Z87.441 Personal history of nephrotic syndrome; Z87.01 Personal history of pneumonia (recurrent); Y92.9 Unspecified place or not applicable

== ENCOUNTER 2017-05-22 14:32 | Inpatient (IN) | payer OTHER ==
[2017-05-22 15:26] VITALS: BMI 15.8
[2017-05-22] MEDS ORDERED: Albuterol 0.083% Inhal Sol (2.5 mg/3 mL) UD INH PRN (16:47)
[2017-05-22] MEDS ORDERED: Lidocaine 5% Patch TD PRN (16:47)
[2017-05-22] MEDS ORDERED: Lactulose 10 gm/15 ml Syrup PO PRN (16:47)
[2017-05-22] MEDS ORDERED: Acetaminophen-Codeine 300/30 mg Tab PO PRN (16:47)
[2017-05-22] MEDS ORDERED: Sodium Chloride 3% for Inhalation 4 ML VIAL.NEB IH PRN (17:10)
[2017-05-22] MEDS: guaiFENesin 600 mg ER Tab PO SCH (20:50)
[2017-05-22] MEDS: BREO INH SCH (20:50)
[2017-05-23] MEDS ORDERED: Cefepime 1 GM in Sodium Chloride 0.9% 100 ML IVPB SCH
[2017-05-23 00:03] LABS: ABG ALLEN TEST YES; ARTERIAL BLOOD GAS HCO3 25.8 mmol/L (21-28); ARTERIAL BLOOD GAS MODE NRM; ARTERIAL BLOOD GAS O2 CAPACITY 19.9 mL/dL (16-24); ARTERIAL BLOOD GAS O2 CONTENT 18.7 ML/dL (15-23); ARTERIAL BLOOD GAS PO2 61 mm/Hg (80-100); CARBOXYHEMOGLOBIN 2.9 % (0.5-1.5); HHB 5.5 % (0.0-5.0); METHEMOGLOBIN 1.6 % (0.0-3.0)
[2017-05-23] MEDS ORDERED: Albuterol-Ipratrop 3 mg / 0.5 (3 ml) UD INH STA (01:45)
[2017-05-23 08:04] VITALS: BP 113/66; PULSE 62; TEMP 98.8; O2SAT 96
[2017-05-23] MEDS ORDERED: MethylPREDNISolone 40 mg Vial IV SCH (09:00)
[2017-05-23] MEDS ORDERED: methylPREDNISolone 40 MG in Sodium Chloride 0.9% 50 ML IVPB SCH (09:00)
[2017-05-23] MEDS: guaiFENesin 600 mg ER Tab PO SCH (09:04)
[2017-05-23] MEDS: BREO INH SCH (09:05)
[2017-05-23 12:05] VITALS: RESP 20
== END 2017-05-23 10:15 | disposition short-term general hospital (02) | DRG 197 ==
LOC: H.TCU 15:27
PROVIDERS: ADMIT Internal Medicine Cardiovascular Disease; ATTEND Internal Medicine Cardiovascular Disease
PROC: 3E0F73Z Introduction of Anti-inflammatory into Respiratory Tract, Via Natural or Artificial Opening (ICD-10-PCS; principal; 2017-05-22)
PROC: F07Z9FZ Gait Training/Functional Ambulation Treatment using Assistive, Adaptive, Supportive or Protective Equipment (ICD-10-PCS; 2017-05-23)
PROC: F08Z4FZ Home Management Treatment using Assistive, Adaptive, Supportive or Protective Equipment (ICD-10-PCS; 2017-05-23)
DX: J84.112 Idiopathic pulmonary fibrosis (principal); Z68.1 Body mass index [BMI] 19.9 or less, adult; J44.9 Chronic obstructive pulmonary disease, unspecified; R09.02 Hypoxemia; Z95.0 Presence of cardiac pacemaker; Z87.891 Personal history of nicotine dependence

== ENCOUNTER 2017-05-23 11:10 | Inpatient (IN) | payer MEDICARE, OTHER ==
[2017-05-23 11:10] VITALS: BMI 15.8
[2017-05-23] MEDS ORDERED: Albuterol-Ipratrop 3 mg / 0.5 (3 ml) UD ONE (11:36)
[2017-05-23] MEDS ORDERED: Albuterol-Ipratrop 3 mg / 0.5 (3 ml) UD INH STA (11:50)
--- NOTE | 2017-05-23 12:08 | ED PDOC ---
HPI: SOB/CHF/COPD Time Seen by Provider: 05/23/17 11:33 Chief Complaint (Nursing): Shortness Of Breath Chief Complaint (Provider): sob History Per: Patient (89 y/o male h/o pulmonary fibrosis/chf/emphysema recent coccyx injury transferred from TCU for worsening dyspnea. Has been on cefixipime for + sputum cx. No fevers/chills. Was sent by Dr. Arango for admission. Is on solumedrol 40 mg daily as well.) Past Medical History Reviewed: Historical Data, Nursing Documentation, Vital Signs Vital Signs: Last Vital Signs Temp 98.7 F 05/23/17 11:31 Pulse 60 05/23/17 13:14 Resp 20 05/23/17 13:14 BP 125/68 05/23/17 13:14 Pulse Ox 88 L 05/23/17 12:52 BP 110/55 initial - Medical History PMH: CHF, COPD, Emphysema, HTN, Hypercholesterolemia, Peripheral Edema, Pneumonia (OCT 2015), Chronic Kidney Disease (PROTEINURIA) - Surgical History Surgical History: Cholecystectomy, Pacemaker - Family History Family History: States: Unknown Family Hx - Immunization History Hx Tetanus Toxoid Vaccination: No Hx Influenza Vaccination: No Hx Pneumococcal Vaccination: No - Home Medications Home Medications: Ambulatory Orders Medication Instructions Recorded Midodrine HCl 10 mg PO DAILY 10/12/15 Furosemide [Lasix] 20 mg PO DAILY 10/31/15 Lidocaine 5% [Lidoderm] 1 patch TD DAILY PRN 05/14/17 Acetaminophen/Codeine 1 tab PO Q6 PRN tab 05/22/17 [Tylenol/Codeine 300 MG/30 MG] Docusate [Colace] 100 mg PO DAILY cap 05/22/17 Famotidine [Pepcid] 20 mg PO BID tab 05/22/17 Lactulose [Enulose] 10 gm PO DAILY PRN udc 05/22/17 Roflumilast [Daliresp] 500 mcg PO DAILY tab 05/22/17 guaiFENesin [Mucinex LA] 600 mg PO Q12 tab 05/22/17 methylPREDNISolone [Solu-MEDROL] 40 mg IV DAILY #5 ml 05/22/17 Cefepime 1gm in NS 100ml [Maxipime 1 gm IVPB Q12H 05/23/17 1gm] Cholecalciferol [Vitamin D 1000 IU] 1,000 unit PO DAILY 05/23/17 Glycopyrrolate/Formoterol Fum 2 puff IH Q12H 05/23/17 [Bevespi Aerosphere Inhaler] - Allergies Allergies/Adverse Reactions: Allergies Allergy/AdvReac Type Severity Reaction Status Date / Time No Known Allergies Allergy Verified 05/22/17 15:26 Review of Systems ROS Statement: Except As Marked, All Systems Reviewed And Found Negative Respiratory: Positive for: Cough, Shortness of Breath Physical Exam - Reviewed Nursing Documentation Reviewed: Yes Vital Signs Reviewed: Yes - Physical Exam Appears: Positive for: Well, Non-toxic, No Acute Distress Head Exam: Positive for: ATRAUMATIC, NORMAL INSPECTION, NORMOCEPHALIC Skin: Positive for: Normal Color, Warm, DRY Eye Exam: Positive for: EOMI, Normal appearance, PERRL ENT: Positive for: Normal ENT Inspection Neck: Positive for: Normal, Painless ROM Cardiovascular/Chest: Positive for: Regular Rate, Rhythm Respiratory: Positive for: Rhonchi Gastrointestinal/Abdominal: Positive for: Normal Exam, Bowel Sounds, Soft Back: Positive for: Normal Inspection Extremity: Positive for: Normal ROM Neurologic/Psych: Positive for: Alert, Oriented - Laboratory Results Result Diagrams: 05/23/17 12:07 05/23/17 12:07 - ECG O2 Sat by Pulse Oximetry: 95 - Progress ED Course And Treament: duoneb x [address] Arango in ED 12:00pm. No solumedrol at this time. will consult Dr. Mitchell ekg: paced rhythm 59 bpm no ectopy no acute changes cxr: reviewed by Dr. Rodriguez with infiltrate noted. BC x 2 abg ordered levaquin 750mg i vx 1 dose vancomycin 750 mg iv x 1 dose Disposition - Clinical Impression Clinical Impression: CHF (congestive heart failure), Pulmonary fibrosis, Bullous emphysema, Infiltrate noted on imaging study - Patient ED Disposition Is Patient to be Admitted: Yes - Disposition Disposition Time: 12:03 Condition: FAIR - Pt Status Changed To: Hospital Disposition Of: Inpatient - Admit Certification Admit to Inpatient:: After my assessment, the patient will require hospitalization for at least two midnights. This is because of the severity of symptoms shown, intensity of services needed, and/or the medical risk in this patient being treated as an outpatient.
[2017-05-23 12:12] LABS: BASO # 0.1 K/uL (0.0-0.2); BASO % 0.9 % (0.0-2.0); HEMATOCRIT 43.9 % (35.0-51.0); LYMPH # 0.2 K/uL (1.0-4.3); LYMPH % 1.3 % (20.0-40.0); MEAN CELL VOLUME 96.6 fl (80.0-94.0); MEAN CORPUSCULAR HEMOGLOBIN 31.4 pg (27.0-31.0); MEAN CORPUSCULAR HGB CONC 32.5 g/dL (33.0-37.0); MEAN PLATELET VOLUME 9.3 fl (7.2-11.7); MONO # 0.6 K/uL (0.0-0.8); MONO % 4.2 % (0.0-10.0); NEUT # 13.9 K/uL (1.8-7.0); NEUT % 93.6 % (50.0-75.0); NRBC % 0.2 % (0.0-0.0); PLATELET COUNT 170 K/uL (130-400); RED CELL DISTRIBUTION WIDTH 14.8 % (11.5-14.5); WHITE BLOOD COUNT 14.9 K/uL (4.8-10.8)
[2017-05-23 12:25] LABS: BLOOD UREA NITROGEN 56 mg/dl (9-20); CALCIUM 8.5 mg/dL (8.4-10.2); CARBON DIOXIDE 25 mmol/L (22-30); CHLORIDE 103 mmol/L (98-107); GFR AFRICAN-AMERICAN > 60; GLUCOSE,RANDOM 108 mg/dL (75-110); POTASSIUM 4.6 MMOL/L (3.6-5.0); SODIUM 137 mmol/l (132-148)
[2017-05-23] MEDS ORDERED: levoFLOXacin 750 mg in D5W 150 ML BAG IVPB STA (12:28)
[2017-05-23] MEDS ORDERED: levoFLOXacin 750 mg in D5W 750 MG/150 ML BAG IVPB STA (12:32)
[2017-05-23 13:04] LABS: ABG ALLEN TEST YES; ARTERIAL BLOOD GAS HCO3 26.8 mmol/L (21-28); ARTERIAL BLOOD GAS PH 7.48 (7.35-7.45); ARTERIAL BLOOD GAS PO2 48 mm/Hg (80-100)
[2017-05-23 13:11] LABS: NEUTROPHIL 89 % (42-75); TOTAL CELLS COUNTED 100
[2017-05-23 13:13] LABS: LARGE PLATELETS PRESENT
[2017-05-23] MEDS ORDERED: Acetaminophen-Codeine 300/30 mg Tab PO PRN ×2 (14:50→15:15)
[2017-05-23] MEDS ORDERED: Lactulose 10 gm/15 ml Syrup PO PRN (16:06)
[2017-05-23] MEDS ORDERED: Lidocaine 5% Patch TD PRN (16:06)
[2017-05-23] MEDS: GLYCOPYRROLATE IH SCH (16:24)
[2017-05-23] MEDS: FORMOTEROL FUM IH SCH (16:24)
[2017-05-23] MEDS ORDERED: Acetaminophen-Codeine 300/30 mg Tab PO SCH (19:30)
--- NOTE | 2017-05-23 20:02 | RAD ---
HISTORY: Shortness of breath. Technique: Single view portable erect @ 12:10. COMPARISON: 05/14/2017 FINDINGS: LUNGS: New left lower lobe infiltrate. Stable underlying interstitial lung disease. PLEURA: Stable bilateral pleural effusions CARDIOVASCULAR: Cardiomegaly. No evidence of acute, significant cardiovascular disease. Position/ configuration of pacemaker Satisfactory. OSSEOUS STRUCTURES: No significant abnormalities. VISUALIZED UPPER ABDOMEN: Normal. OTHER FINDINGS: None. IMPRESSION: New peripheral infiltrate left lower lobe.
[2017-05-23] MEDS: Cefepime 1 GM in Sodium Chloride 0.9% 100 ML IVPB SCH (21:38)
[2017-05-23] MEDS: guaiFENesin 600 mg ER Tab PO SCH (21:53)
--- NOTE | 2017-05-23 23:08 | CARD ---
APPROVED REPORT EKG Measurement Heart [id number] <Conclusion> Ventricular pacemaker rhythm Abnormal ECG
[2017-05-24] MEDS: Albuterol-Ipratrop 3 mg / 0.5 (3 ml) UD INH PRN ×2 (00:13→08:51)
[2017-05-24] MEDS: Acetaminophen-Codeine 300/30 mg Tab PO PRN ×3 (03:31→16:21)
[2017-05-24] MEDS: GLYCOPYRROLATE IH SCH (03:52)
[2017-05-24] MEDS: FORMOTEROL FUM IH SCH (03:52)
--- NOTE | 2017-05-24 08:01 | CP.PCM.PN ---
Subjective - Date & Time of Evaluation Date of Evaluation: 05/24/17 Time of Evaluation: 08:00 - Subjective Subjective: Pt transferred to telemetry after 1 day stay @ TCU Transferred for SOB Still slightly dyspneic Antibiotics are being given CXR: new LLL infiltrate WBC: 14,000 Consults with Alecia Mitchell and Jaja Objective - Vital Signs/Intake and Output Vital Signs (last 24 hours): Temp Pulse Resp BP Pulse Ox 98.2 F 66 20 111/52 L 92 L 05/24/17 05:00 05/24/17 05:00 05/24/17 07:21 05/24/17 05:00 05/24/17 05:00 - Medications Medications: Current Medications Acetaminophen/Codeine Phosphate (Tylenol/Codeine 300 Mg/30 Mg) 1 tab PO Q4 PRN PRN Reason: Pain, severe (8-10) Last Admin: 05/24/17 03:31 Dose: 1 tab Albuterol/Ipratropium (Duoneb 3 Mg/0.5 Mg (3 Ml) Ud) 3 ml INH RQ6 PRN PRN Reason: Shortness of Breath Last Admin: 05/24/17 00:13 Dose: 3 ml Cholecalciferol (Vitamin D) 1,000 iu PO DAILY [facility] Docusate Sodium (Colace) 100 mg PO DAILY [facility] Famotidine (Pepcid) 20 mg PO BID [facility] Last Admin: 05/23/17 17:55 Dose: 20 mg Furosemide (Lasix) 20 mg PO DAILY [facility] Guaifenesin (Mucinex La) 600 mg PO Q12 [facility] Last Admin: 05/23/17 21:53 Dose: 600 mg Home Med (Glycopyrrolate/Formoterol Fum [Bevespi Aerosphere Inhaler]) 2 puff IH Q12H [facility] Last Admin: 05/24/17 03:52 Dose: 2 puff Cefepime HCl 1 gm/ Sodium (Chloride) 100 mls @ 100 mls/hr IVPB Q12 JERED PRN Reason: Protocol Last Admin: 05/23/17 21:38 Dose: 100 mls/hr Methylprednisolone 40 mg/ (Sodium Chloride) 50 mls @ 100 mls/hr IVPB DAILY [facility] Lactulose (Enulose) 10 gm PO DAILY PRN PRN Reason: Constipation Lidocaine (Lidoderm) 1 ea TD DAILY PRN PRN Reason: Pain, Mild (1-3) Midodrine (Proamatine) 10 mg PO DAILY JERED Roflumilast (Daliresp) 500 mcg PO DAILY JERED - Labs Labs: 05/23/17 12:07 05/23/17 12:07 - Head Exam Head Exam: NORMAL INSPECTION - Eye Exam Pupil Exam: NORMAL ACCOMODATION - ENT Exam ENT Exam: Normal Exam - Neck Exam Neck Exam: Normal Inspection - Respiratory Exam Respiratory Exam: Decreased Breath Sounds, Rhonchi - Cardiovascular Exam Cardiovascular Exam: REGULAR RHYTHM Assessment and Plan (1) Pneumonia Assessment & Plan: LLL on CXR 05/23 Status: Acute (2) Pulmonary fibrosis Status: Chronic
[2017-05-24] MEDS: guaiFENesin 600 mg ER Tab PO SCH ×2 (08:59→21:14)
[2017-05-24] MEDS: Cefepime 1 GM in Sodium Chloride 0.9% 100 ML IVPB SCH (09:01)
--- NOTE | 2017-05-24 09:11 | PCM.RRT ---
WHEEL POLISHER Nurse Assessment - Ventilator Settings FIO2 (% Oxygen): 35 Plan - Assessment of Findings&Treatment Plan WHEEL [employer]ISHER time: 08:42 WHEEL POLISHER location [id number] WHEEL POLISHER arrival time: 08:44 WHEEL POLISHER reason: SOB with O2 saturation at 85% S: pt was seen at bedside after WHEEL POLISHER was called by RN due to SOB with O2 saturation of 85%. Pt was lying in bed upright on o2 mask, alert, oriented and responsive to our verbal communication.. Pt has history of COPD, emphesyma, pulmonary fibrosis, CHF and admitted for COPD with Pneumonia. O: WHEEL POLISHER vitals: 137/62 60bpm 85% 20 RR 97F General: laying upright in bed Resp: labored breathing using accessory muscles; sob; cough with phlegm with mask high flow oxygen at 7L [place]; soft nontender WHEEL POLISHER intervention: 1) increase high flow O2 breathing treatment to 45% from 35% A/P: 89 yo M with pmhx of COPD, Emphysema, Pulmonary fibrosis and CHF admitted for COPD exacerbation with pneumonia WHEEL [employer]ISHER outcome: 1) Pt O2 sat increased to 95%, RR and use of accessory muscles decreased 2) Ordered O2 around the clock Q4 3) Continue with breathing treatment 4) continue to monitor vitals 5) Pulmonology on board WHEEL POLISHER END AT 08:55 WHEEL POLISHER lead: Dr. West WHEEL POLISHER resident: MD Velma, MD Edgar
[2017-05-24] MEDS: methylPREDNISolone 40 MG in Sodium Chloride 0.9% 50 ML IVPB SCH (10:42)
[2017-05-24] MEDS: Albuterol-Ipratrop 3 mg / 0.5 (3 ml) UD INH SCH ×4 (11:25→23:29)
[2017-05-24] MEDS ORDERED: Albuterol 0.083% Inhal Sol (2.5 mg/3 mL) UD INH PRN (12:34)
--- NOTE | 2017-05-24 12:34 | CP.PCM.CON ---
History of Present Illness - History of Present Illness History of Present Illness: This 89-year-old male who suffers from chronic obstructive pulmonary disease as well as diffuse pulmonary fibrosis had been discharged to transitional care unit for continued antibiotic therapy as well as physical therapy. He developed dark brown colored, purulent sputum which was sent to the lab for culture but became progressively more short winded and hypoxemic. He was released from the transitional care unit and sent to the emergency department for readmission to acute medicine. Chest x-ray in the emergency department showed a suspected left lower lobe pneumonia. Sputum which had been collected and sent to lab was reported as gram-negative bacilli, heavy growth, and ID showing pseudomonas aeruginosa which was sensitive to cefepime. He had been hospitalized initially because of intractable pain secondary to fall which resulted in partial compression fracture of the spine. He had received a nerve block which resulted in temporary relief of his pain. With the pain there is an abnormal respiratory pattern which results in persistent hypoxemia quiring higher supplemental oxygen levels. He had also been placed on high flow nasal cannula to achieve an adequate SPO2. He does suffer from COPD secondary to a long cigarette habit which he discontinued approximately 25 years ago. He also has a pulmonary nodule in the right upper lobe which has been stable and a prior episode of pneumonia in 2016. There has been no diagnosis of asthma or tuberculosis in the past. Past Patient History - Past Medical History & Family History Past Medical History?: Yes - Past Social History Smoking Status: Former Smoker Chewing Tobacco Use: No Cigar Use: No Alcohol: Social Drugs: Denies Home Situation {Lives}: Alone - CARDIAC Hx Congestive Heart Failure: Yes Hx Hypercholesterolemia: Yes Hx Hypertension: Yes Hx Pacemaker: Yes Hx Peripheral Edema: Yes - PULMONARY Hx Chronic Obstructive Pulmonary Disease (COPD): Yes Hx Emphysema: Yes Hx Pneumonia: Yes (OCT 2015) - NEUROLOGICAL Hx Neurological Disorder: No - HEENT Hx Cataracts: Yes - RENAL Hx Chronic Kidney Disease: Yes (PROTEINURIA) - ENDOCRINE/METABOLIC Hx Endocrine Disorders: No - HEMATOLOGICAL/ONCOLOGICAL Hx Blood Disorders: No - INTEGUMENTARY Hx Dermatological Problems: No - MUSCULOSKELETAL/RHEUMATOLOGICAL Hx Back Pain: Yes Hx Falls: Yes Hx Unsteady Gait: Yes - GASTROINTESTINAL Hx Gastrointestinal Disorders: No - GENITOURINARY/GYNECOLOGICAL Hx Genitourinary Disorders: No - PSYCHIATRIC Hx Psychophysiologic Disorder: No Hx Substance Use: No - SURGICAL HISTORY Hx Cholecystectomy: Yes - ANESTHESIA Hx Anesthesia: Yes Hx Anesthesia Reactions: No Hx Malignant Hyperthermia: No Meds Allergies/Adverse Reactions: Allergies Allergy/AdvReac Type Severity Reaction Status Date / Time No Known Allergies Allergy Verified 05/22/17 15:26 - Medications Medications: Current Medications Acetaminophen/Codeine Phosphate (Tylenol/Codeine 300 Mg/30 Mg) 1 tab PO Q4 PRN PRN Reason: Pain, severe (8-10) Last Admin: 05/24/17 11:16 Dose: 1 tab Albuterol/Ipratropium (Duoneb 3 Mg/0.5 Mg (3 Ml) Ud) 3 ml INH RQ6 PRN PRN Reason: Shortness of Breath Last Admin: 05/24/17 08:51 Dose: 3 ml Albuterol/Ipratropium (Duoneb 3 Mg/0.5 Mg (3 Ml) Ud) 3 ml INH RQ4 JERED Last Admin: 05/24/17 11:25 Dose: 3 ml Cholecalciferol (Vitamin D) 1,000 iu PO DAILY [facility] Last Admin: 05/24/17 09:02 Dose: 1,000 iu Docusate Sodium (Colace) 100 mg PO DAILY [facility] Last Admin: 05/24/17 08:58 Dose: 100 mg Famotidine (Pepcid) 20 mg PO BID [facility] Last Admin: 05/24/17 09:02 Dose: 20 mg Furosemide (Lasix) 20 mg PO DAILY [facility] Last Admin: 05/24/17 09:00 Dose: 20 mg Guaifenesin (Mucinex La) 600 mg PO Q12 [facility] Last Admin: 05/24/17 08:59 Dose: 600 mg Home Med (Glycopyrrolate/Formoterol Fum [Bevespi Aerosphere Inhaler]) 2 puff IH Q12H [facility] Last Admin: 05/24/17 03:52 Dose: 2 puff Cefepime HCl 1 gm/ Sodium (Chloride) 100 mls @ 100 mls/hr IVPB Q12 JERED PRN Reason: Protocol Last Admin: 05/24/17 09:01 Dose: 100 mls/hr Methylprednisolone 40 mg/ (Sodium Chloride) 50 mls @ 100 mls/hr IVPB DAILY [facility] Last Admin: 05/24/17 10:42 Dose: 100 mls/hr Lactulose (Enulose) 10 gm PO DAILY PRN PRN Reason: Constipation Lidocaine (Lidoderm) 1 ea TD DAILY PRN PRN Reason: Pain, Mild (1-3) Midodrine (Proamatine) 10 mg PO DAILY [facility] Last Admin: 05/24/17 09:02 Dose: 10 mg Roflumilast (Daliresp) 500 mcg PO DAILY [facility] Last Admin: 05/24/17 09:01 Dose: 500 mcg Physical Exam - Additional Findings Additional findings: Elderly male, acutely dyspneic but cooperative with physical exam. No palpable lymphadenopathy. Neck is supple and trachea is midline. No neck vein distention or carotid bruit. Nares are patent bilaterally. No bleeding or exudate. Pharynx is pink and mucous membranes are moist. No exudate. Dullness to chest percussion noted in the left base posteriorly. Both hemidiaphragms appear to be displaced caudally. Breath sounds are diminished bilaterally, especially in the left lower lobe. Dry rales are heard primarily in the lower lobes posteriorly (these are not classic Velcro rales) with medium rales noted in the left base. No bronchial breath sounds or egophony. The heart sounds are slightly distant and the rhythm is regular. No murmur. The abdomen is soft and nontender with normal bowel sounds. Peripheral pulses are not felt in the ankles or feet of either leg. Nail beds appear dusky. No ecchymosis or jaundice. No rash. Results - Vital Signs Recent Vital Signs: Last Vital Signs Temp 98.4 F 05/24/17 12:14 Pulse 59 L 05/24/17 12:14 Resp 18 05/24/17 12:14 BP 101/60 05/24/17 12:14 Pulse Ox 90 L 05/24/17 12:14 - Labs Result Diagrams: 05/26/17 04:30 05/26/17 04:30 Labs: Laboratory Results - last 24 hr 05/23/17 05/23/17 05/23/17 12:07 12:07 12:26 Neutrophils % (Manual) 89 H Band Neutrophils % 3 H Lymphocytes % (Manual) 2 L Monocytes % (Manual) 6 Platelet Estimate Normal Large Platelets Present Poikilocytosis (manual Slight Anisocytosis (manual) Slight Ovalocytes Slight [place] Cells Slight pCO2 35 pO2 48 L HCO3 26.8 ABG pH 7.48 H ABG Total CO2 27.2 ABG O2 Saturation 91.1 L ABG Base Excess 2.9 López Test Yes ABG Potassium 4.2 A-a O2 Difference 122.0 Sodium 135.0 Chloride 103.0 Glucose 119 H Lactate 1.3 FiO2 30.0 Blood Gas Comments 4l/ nc.rr Crit Value Read Back N Troponin I 0.0450 NT-Pro-B Natriuret Pep 6520 H Arterial Blood Potassium 4.2 Assessment & Plan (1) Pneumonia due to Pseudomonas aeruginosa Assessment and Plan: Acute decompensation of his respiratory status secondary to gram-negative pneumonia in the left lower lobe (pseudomonas aeruginosa). Increase cefepime to 2 g every 12 hours based on sensitivity studies. Supplemental oxygen via high flow nasal cannula to maintain SPO2 greater than 88 %. Continue aerosol therapy and all other modalities including CPT using Acapella. Status: Acute Priority: High (2) Bullous emphysema Status: Chronic Priority: High (3) Pulmonary fibrosis Status: Chronic Priority: High - Date & Time Date: 05/24/17 Time: 12:34
[2017-05-24 15:43] LABS: PARTIAL THROMBOPLASTIN TIME 24.1 Seconds (25.6-37.1)
[2017-05-24] MEDS: Cefepime 2 GM in Sodium Chloride 0.9% 100 ML IVPB SCH (21:13)
[2017-05-25] MEDS: Albuterol-Ipratrop 3 mg / 0.5 (3 ml) UD INH SCH ×6 (04:59→23:32)
[2017-05-25] MEDS: methylPREDNISolone 40 MG in Sodium Chloride 0.9% 50 ML IVPB SCH (08:23)
[2017-05-25] MEDS: guaiFENesin 600 mg ER Tab PO SCH ×2 (08:23→21:55)
[2017-05-25] MEDS: Cefepime 2 GM in Sodium Chloride 0.9% 100 ML IVPB SCH ×2 (08:24→16:44)
--- NOTE | 2017-05-25 10:54 | CP.PCM.PN ---
Subjective - Date & Time of Evaluation Date of Evaluation: 05/25/17 Time of Evaluation: 10:00 - Subjective Subjective: Appears to be less SOB today family states he has more SOB with anxiety / or pain VS stable c/o pain @ Coccyx bone Objective - Vital Signs/Intake and Output Vital Signs (last 24 hours): Temp Pulse Resp BP Pulse Ox 97 F L 65 20 158/69 H 94 L 05/25/17 08:00 05/25/17 08:00 05/25/17 08:00 05/25/17 08:22 05/25/17 08:00 - Medications Medications: Current Medications Acetaminophen/Codeine Phosphate (Tylenol/Codeine 300 Mg/30 Mg) 1 tab PO Q4 PRN PRN Reason: Pain, severe (8-10) Last Admin: 05/24/17 16:21 Dose: 1 tab Albuterol Sulfate (Albuterol 0.083% Inhal Lashon (2.5 Mg/3 Ml) Ud) 2.5 mg INH RQ4 PRN PRN Reason: Shortness of Breath Albuterol/Ipratropium (Duoneb 3 Mg/0.5 Mg (3 Ml) Ud) 3 ml INH RQ4 [facility] Last Admin: 05/25/17 07:47 Dose: 3 ml Cholecalciferol (Vitamin D) 1,000 iu PO DAILY [facility] Last Admin: 05/25/17 08:24 Dose: 1,000 iu Docusate Sodium (Colace) 100 mg PO DAILY [facility] Last Admin: 05/25/17 08:22 Dose: 100 mg Famotidine (Pepcid) 20 mg PO BID [facility] Last Admin: 05/25/17 08:23 Dose: 20 mg Furosemide (Lasix) 20 mg PO DAILY [facility] Last Admin: 05/25/17 08:22 Dose: 20 mg Guaifenesin (Mucinex La) 600 mg PO Q12 [facility] Last Admin: 05/25/17 08:23 Dose: 600 mg Home Med (Glycopyrrolate/Formoterol Fum [Bevespi Aerosphere Inhaler]) 2 puff IH Q12H [facility] Last Admin: 05/24/17 03:52 Dose: 2 puff Methylprednisolone 40 mg/ (Sodium Chloride) 50 mls @ 100 mls/hr IVPB DAILY [facility] Last Admin: 05/25/17 08:23 Dose: 100 mls/hr Cefepime HCl 2 gm/ Sodium (Chloride) 100 mls @ 100 mls/hr IVPB Q12 [facility] PRN Reason: Protocol Last Admin: 05/25/17 08:24 Dose: 100 mls/hr Lactulose (Enulose) 10 gm PO DAILY PRN PRN Reason: Constipation Lidocaine (Lidoderm) 1 ea TD DAILY PRN PRN Reason: Pain, Mild (1-3) Last Admin: 05/25/17 08:25 Dose: 1 ea Midodrine (Proamatine) 10 mg PO DAILY [facility] Last Admin: 05/25/17 08:23 Dose: 10 mg Morphine Sulfate (Morphine) 1 mg IVP Q4 PRN PRN Reason: Pain, moderate (4-7) Last Admin: 05/25/17 03:10 Dose: 1 mg Morphine Sulfate (Morphine) 2 mg IVP Q4 PRN PRN Reason: Pain, severe (8-10) Last Admin: 05/24/17 20:13 Dose: 2 mg Roflumilast (Daliresp) 500 mcg PO DAILY [facility] Last Admin: 05/25/17 08:22 Dose: 500 mcg - Labs Labs: 05/23/17 12:07 05/23/17 12:07 PT 14.0 Seconds (9.8-13.1) H 05/24/17 14:45 INR 1.2 (0.9-1.2) 05/24/17 14:45 APTT 24.1 Seconds (25.6-37.1) L 05/24/17 14:45 Assessment and Plan (1) Pneumonia Status: Acute (2) Pulmonary fibrosis Status: Chronic
--- NOTE | 2017-05-25 14:10 | CP.PCM.CON ---
History of Present Illness - History of Present Illness History of Present Illness: Patient is an 89 y/o male h/o pulmonary fibrosis/chf/emphysema recent coccyx injury transferred from TCU for worsening dyspnea. Has been on cefipime for + sputum cx. No fevers/chills. Was sent by Dr. Arango for admission. c/o sob but no fever alert weak and depressed but NAD Sputum 10/4 + for Pseudomonas - Medical History PMH: CHF, COPD, Emphysema, HTN, Hypercholesterolemia, Peripheral Edema, Pneumonia (OCT 2015), Chronic Kidney Disease (PROTEINURIA) - Surgical History Surgical History: Cholecystectomy, Pacemaker - Family History Family History: States: Unknown Family Hx Review of Systems - Constitutional Constitutional: Anorexia, Chills, Malaise - EENT Eyes: absent: As Per HPI, Blind Spots, Blurred Vision, Change in Vision, Decreased Night Vision, Diplopia, Discharge, Dry Eye, Exophthalmos, Floaters, Irritation, Itchy Eyes, Loss of Peripheral Vision, Pain, Photophobia, Requires Corrective Lenses, Sees Flashes, Spots in Vision, Tunnel Vision, Other Visual Disturbances, Loss of Vision, Other Ears: absent: As Per HPI, Decreased Hearing, Ear Discharge, Ear Pain, Tinnitus, Abnormal Hearing, Disequilibrium, Dizziness, Other Nose/Mouth/Throat: absent: As Per HPI, Epistaxis, Nasal Congestion, Nasal Discharge, Nasal Obstruction, Nasal Trauma, Nose Pain, Post Nasal Drip, Sinus Pain, Sinus Pressure, Bleeding Gums, Change in Voice, Dental Pain, Dry Mouth, Dysphagia, Halitosis, Hoarsness, Lip Swelling, Mouth Lesions, Mouth Pain, Odynophagia, Sore Throat, Throat Swelling, Tongue Swelling, Facial Pain, Neck Pain, Neck Mass, Other - Cardiovascular Cardiovascular: As Per HPI - Respiratory Respiratory: As Per HPI, Cough, Dyspnea. absent: Hemoptysis - Gastrointestinal Gastrointestinal: absent: As Per HPI, Abdominal Pain, Belching, Bloating, Change in Bowel Habits, Change in Stool Character, Coffee Ground Emesis, Constipation, Cramping, Diarrhea, Dyspepsia, Dysphagia, Early Satiety, Excessive Flatus, Fecal Incontinence, Heartburn, Hematemesis, Hematochezia, Loose Stools, Melena, Nausea, Odynophagia, Temesmus, Vomiting, Other - Genitourinary Genitourinary: absent: As Per HPI, Change in Urinary Stream, Difficulty Urinating, Dysuria, Flank Pain, Hematuria, Pyuria, Nocturia, Urinary Incontinence, Urinary Frequency, Urinary Hesitance, Urinary Urgency, Voiding Freq/Small Amts, Freq UTI, Hx Renal/Bladder Calculi, Hx /Renal Surgery, Bladder Distension, Other - Musculoskeletal Musculoskeletal: absent: As Per HPI, Abnormal Gait, Arthralgias, Atrophy, Back Pain, Deformity, Joint Swelling, Limited Range of Motion, Loss of Height, Muscle Cramps, Muscle Weakness, Myalgias, Neck Pain, Numbness, Radiating Pain into Limb, Stiffness, Tingling, Other - Integumentary Integumentary: absent: As Per HPI, Acne, Alopecia, Bleeding Lesions, Change in Hair, Change in Nails, Change in Pigmentation, Changing Lesions, Dry Skin, Erythema, Furuncle, Hirsutism, Lesions, New Lesions, Non-Healing Lesions, Photosensitivity, Pruritus, Rash, Skin Pain, Skin Ulcer, Sores, Striae, Swelling , Unusual Bruising, Wounds, Jaundice, Other - Neurological Neurological: absent: As Per HPI, Abnormal Gait, Abnormal Hearing, Abnormal Movements, Abnormal Speech, Behavioral Changes, Burning Sensations, Confusion, Convulsions, Disequilibrium, Dizziness, Numbness, Focal Weakness, Frequent Falls , Headaches, Lack of Coordination, Loss of Vision, Memory Loss, Paresthesias, Radicular Pain, Restless Legs, Sensory Deficit, Syncope, Tingling, Tremor, Vertigo, Weakness, Other Visual Disturbances, Other - Psychiatric Psychiatric: absent: As Per HPI, Abnormal Sleep Pattern, Anhedonia, Anxiety, Auditory Hallucinations, Behavioral Changes, Change in Appetite, Change in Libido, Confusion, Depression, Difficulty Concentrating, Hallucinations, Homicidal Ideation, Hopelessness, Irritability, Memory Loss, Mood Swings, Panic Attacks, Paranoia, Suicidal Ideation, Visual Hallucinations, Tactile Hallucinations, Other - Endocrine Endocrine: absent: As Per HPI, Change in Body Appearance, Change in Libido, Cold Intolorance, Deepening of Voice, Excessive Sweating, Fatigue, Flushing, Heat Intolorance, Increase in Ring/Shoe/Hat Size, Palpitations, Polydipsia, Polyphagia, Polyuria, Other - Hematologic/Lymphatic Hematologic: absent: As Per HPI, Easy Bleeding, Easy Bruising, Lymphadenopathy, Other Past Patient History - Past Medical History & Family History Past Medical History?: Yes - Past Social History Smoking Status: Never Smoked - CARDIAC Hx Congestive Heart Failure: Yes Hx Hypercholesterolemia: Yes Hx Hypertension: Yes Hx Pacemaker: Yes Hx Peripheral Edema: Yes - PULMONARY Hx Chronic Obstructive Pulmonary Disease (COPD): Yes Hx Emphysema: Yes Hx Pneumonia: Yes (OCT 2015) - NEUROLOGICAL Hx Neurological Disorder: No - HEENT Hx Cataracts: Yes - RENAL Hx Chronic Kidney Disease: Yes (PROTEINURIA) - ENDOCRINE/METABOLIC Hx Endocrine Disorders: No - HEMATOLOGICAL/ONCOLOGICAL Hx Blood Disorders: No - INTEGUMENTARY Hx Dermatological Problems: No - MUSCULOSKELETAL/RHEUMATOLOGICAL Hx Back Pain: Yes Hx Falls: Yes Hx Unsteady Gait: Yes Other/Comment: LIMIT JOINT MOTION - GASTROINTESTINAL Hx Gastrointestinal Disorders: No - GENITOURINARY/GYNECOLOGICAL Hx Genitourinary Disorders: No - PSYCHIATRIC Hx Psychophysiologic Disorder: No Hx Substance Use: No - SURGICAL HISTORY Hx Cholecystectomy: Yes - ANESTHESIA Hx Anesthesia: Yes Hx Anesthesia Reactions: No Hx Malignant Hyperthermia: No Meds Allergies/Adverse Reactions: Allergies Allergy/AdvReac Type Severity Reaction Status Date / Time No Known Allergies Allergy Verified 05/22/17 15:26 - Medications Medications: Current Medications Acetaminophen/Codeine Phosphate (Tylenol/Codeine 300 Mg/30 Mg) 1 tab PO Q4 PRN PRN Reason: Pain, severe (8-10) Last Admin: 05/24/17 16:21 Dose: 1 tab Albuterol Sulfate (Albuterol 0.083% Inhal Lashon (2.5 Mg/3 Ml) Ud) 2.5 mg INH RQ4 PRN PRN Reason: Shortness of Breath Albuterol/Ipratropium (Duoneb 3 Mg/0.5 Mg (3 Ml) Ud) 3 ml INH RQ4 [facility] Last Admin: 05/25/17 11:18 Dose: 3 ml Cholecalciferol (Vitamin D) 1,000 iu PO DAILY [facility] Last Admin: 05/25/17 08:24 Dose: 1,000 iu Docusate Sodium (Colace) 100 mg PO DAILY [facility] Last Admin: 05/25/17 08:22 Dose: 100 mg Famotidine (Pepcid) 20 mg PO BID [facility] Last Admin: 05/25/17 08:23 Dose: 20 mg Furosemide (Lasix) 20 mg PO DAILY [facility] Last Admin: 05/25/17 08:22 Dose: 20 mg Guaifenesin (Mucinex La) 600 mg PO Q12 [facility] Last Admin: 05/25/17 08:23 Dose: 600 mg Home Med (Glycopyrrolate/Formoterol Fum [Bevespi Aerosphere Inhaler]) 2 puff IH Q12H [facility] Last Admin: 05/24/17 03:52 Dose: 2 puff Methylprednisolone 40 mg/ (Sodium Chloride) 50 mls @ 100 mls/hr IVPB DAILY [facility] Last Admin: 05/25/17 08:23 Dose: 100 mls/hr Cefepime HCl 2 gm/ Sodium (Chloride) 100 mls @ 100 mls/hr IVPB Q12 [facility] PRN Reason: Protocol Last Admin: 05/25/17 08:24 Dose: 100 mls/hr Lactulose (Enulose) 10 gm PO DAILY PRN PRN Reason: Constipation Lidocaine (Lidoderm) 1 ea TD DAILY PRN PRN Reason: Pain, Mild (1-3) Last Admin: 05/25/17 08:25 Dose: 1 ea Midodrine (Proamatine) 10 mg PO DAILY [facility] Last Admin: 05/25/17 08:23 Dose: 10 mg Morphine Sulfate (Morphine) 1 mg IVP Q4 PRN PRN Reason: Pain, moderate (4-7) Last Admin: 05/25/17 03:10 Dose: 1 mg Morphine Sulfate (Morphine) 2 mg IVP Q4 PRN PRN Reason: Pain, severe (8-10) Last Admin: 05/25/17 10:57 Dose: 2 mg Roflumilast (Daliresp) 500 mcg PO DAILY [facility] Last Admin: 05/25/17 08:22 Dose: 500 mcg Physical Exam - Constitutional Appears: Non-toxic, Chronically Ill - Head Exam Head Exam: ATRAUMATIC, NORMAL INSPECTION, NORMOCEPHALIC - Eye Exam Eye Exam: EOMI, PERRL. absent: Scleral icterus - ENT Exam ENT Exam: Mucous Membranes Dry, Normal External Ear Exam, Normal Oropharynx - Neck Exam Neck exam: Negative for: Lymphadenopathy, Thyromegaly - Respiratory Exam Respiratory Exam: Decreased Breath Sounds, Prolonged Expiratory Phase, Rales, Rhonchi - Cardiovascular Exam Cardiovascular Exam: Irregular Rhythm, +S1, +S2 - GI/Abdominal Exam GI & Abdominal Exam: Diminished Bowel Sounds, Soft. absent: Distended, Normal Bowel Sounds, Rebound, Rigid, Tenderness - Rectal Exam Rectal Exam: Deferred - Exam Exam: NORMAL INSPECTION - Extremities Exam Extremities exam: Positive for: pedal pulses present. Negative for: calf tenderness, pedal edema, tenderness - Back Exam Back exam: absent: CVA tenderness (L), CVA tenderness (R), paraspinal tenderness - Neurological Exam Neurological exam: Alert, CN II-XII Intact, Oriented x3, Reflexes Normal - Psychiatric Exam Psychiatric exam: Depressed - Skin Skin Exam: Dry, Intact Results - Vital Signs Recent Vital Signs: Last Vital Signs Temp 98.3 F 05/25/17 12:00 Pulse 55 L 05/25/17 12:00 Resp 20 05/25/17 12:00 BP 129/62 05/25/17 12:00 Pulse Ox 86 L 05/25/17 12:00 - Labs Result Diagrams: 05/23/17 12:07 05/23/17 12:07 Labs: Laboratory Results - last 24 hr 05/24/17 14:45 PT 14.0 H INR 1.2 APTT 24.1 L Assessment & Plan (1) CHF (congestive heart failure) Status: Acute (2) Infiltrate noted on imaging study Status: Acute (3) Pneumonia due to Pseudomonas aeruginosa Status: Acute Priority: High (4) Bullous emphysema Status: Chronic Priority: High (5) Pulmonary fibrosis Status: Chronic Priority: High - Assessment and Plan (Free Text) Assessment: recc - cont IV antibiotics , chest PT , bronchodilators rx as bronchiectasis may need prolonged course of rx
--- NOTE | 2017-05-25 17:32 | PCM.RRT ---
DIAZO TECHNICIAN Nurse Assessment - Situation DIAZO TECHNICIAN Responder Arrival Time: 17:25 DIAZO TECHNICIAN Reason for Call: Respiratory Distress, O2 Saturation below 90% DIAZO TECHNICIAN Called By: RN - Respiratory Oxygen Delivery Method: High-Flow - Ventilator Settings FIO2 (% Oxygen): 45 I.Reason for DIAZO TECHNICIAN - A) Acute Change in Patient: (Select all that apply): Acute change in SpO2 less Subjective: 89 y/o man w/ pmh of COPD, emphesyma, pulmonary fibrosis, CHF and admitted for COPD with RT middle lobe Pneumonia. Patient was seen bedside after DIAZO TECHNICIAN was called by RN due to SOB with O2 saturation of 75%. Patient was lying in bed upright on high flow nasal cannula , alert, oriented and responsive to our verbal communication. - Neurological Status (Select all that apply): Alert, Responsive, Verbal, Follows Commands - Respiratory Oxygen Delivery Method: High-Flow @% (initially 50% increased to 100%) - Head Head Exam: ATRAUMATIC - Respiratory Exam Respiratory Exam: Accessory Muscle Use, Rhonchi - Cardiovascular Exam Cardiovascular Exam: absent: Bradycardia, Tachycardia - GI/Abdominal Exam GI & Abdominal Exam: Soft - Neurological Exam Neurological Exam: Alert, Awake Plan - Assessment of Findings&Treatment Plan 89 y/o man w/ pmh of COPD, emphesyma, pulmonary fibrosis, CHF and admitted for COPD with RT middle lobe Pneumonia. S: Patient was seen bedside after DIAZO TECHNICIAN was called by RN due to SOB with O2 saturation of 75%. Patient was lying in bed upright on high flow nasal cannula , alert, oriented and responsive to our verbal communication. O: vitals: 64 bpm, 11/51 mm Hg, resp 40, O2 75% on HFNC 50% General: laying upright in bed Resp: speaks but needs to catch breath between words, labored breathing using accessory muscles, mouth breather, SOB, with high flow nasal cannula oxygen at 25L Abdomen: soft, non-tender DIAZO TECHNICIAN intervention: 1) increase high flow O2 breathing treatment to 100% DIAZO TECHNICIAN outcome: 1) Pt O2 sat increased to 91%, respiratory rate and use of accessory muscles decreased 2) slowly decrease FIO2 as tolerated 3) Continue with breathing treatment 4) continue to monitor vitals 5) Pulmonology, Dr. Mitchell 6) Primary, Dr. Arango notified
[2017-05-26] MEDS: Cefepime 2 GM in Sodium Chloride 0.9% 100 ML IVPB SCH ×3 (00:26→16:22)
[2017-05-26] MEDS: Albuterol-Ipratrop 3 mg / 0.5 (3 ml) UD INH SCH ×6 (04:23→23:50)
[2017-05-26 05:40] LABS: BASO # 0.1 K/uL (0.0-0.2); BASO % 0.3 % (0.0-2.0); EOS % 0.1 % (0.0-4.0); HEMATOCRIT 40.6 % (35.0-51.0); LYMPH # 0.4 K/uL (1.0-4.3); LYMPH % 2.2 % (20.0-40.0); MEAN CELL VOLUME 95.4 fl (80.0-94.0); MEAN CORPUSCULAR HEMOGLOBIN 32.3 pg (27.0-31.0); MEAN CORPUSCULAR HGB CONC 33.9 g/dL (33.0-37.0); MEAN PLATELET VOLUME 9.9 fl (7.2-11.7); MONO # 0.9 K/uL (0.0-0.8); MONO % 5.4 % (0.0-10.0); NEUT # 15.8 K/uL (1.8-7.0); PLATELET COUNT 171 K/uL (130-400); RED CELL DISTRIBUTION WIDTH 15.1 % (11.5-14.5); WHITE BLOOD COUNT 17.2 K/uL (4.8-10.8)
[2017-05-26 05:42] LABS: ALKALINE PHOSPHATASE 90 U/L (38-126); ALT/SGPT 41 U/L (21-72); AST/SGOT 22 U/L (17-59); BILIRUBIN,TOTAL 1.2 mg/dl (0.2-1.3); BLOOD UREA NITROGEN 49 mg/dl (9-20); CALCIUM 8.9 mg/dL (8.4-10.2); CARBON DIOXIDE 23 mmol/L (22-30); CHLORIDE 106 mmol/L (98-107); GFR AFRICAN-AMERICAN > 60; GLUCOSE,RANDOM 125 mg/dL (75-110); POTASSIUM 3.8 MMOL/L (3.6-5.0); SODIUM 142 mmol/l (132-148); TOTAL PROTEIN 6.1 G/DL (6.3-8.2)
[2017-05-26] MEDS: guaiFENesin 600 mg ER Tab PO SCH ×2 (08:33→22:30)
[2017-05-26] MEDS: methylPREDNISolone 40 MG in Sodium Chloride 0.9% 50 ML IVPB SCH (10:01)
--- NOTE | 2017-05-26 10:19 | CP.PCM.PN ---
Subjective - Date & Time of Evaluation Date of Evaluation: 05/26/17 Time of Evaluation: 10:17 - Subjective Subjective: Continues to experience marked dyspnea and cough. Expectorates a small to moderate amount of tenacious dark brown sputum. Leukocytosis is up to 17 this morning. He remains afebrile, tachypneic and tachycardic. CXR this morning continues to show a retrocardiac density. Sputum cytologies are not yet reported. Still having significant lower back pain. No subcut emphysema. Dullness to percussion is noted in the left base. Coarse sonorous rhonchi are present in both lungs. No bronchial breath sounds or wheezing. Dry rales bilaterally with medium rales in LLL. O2 saturation reported at 98% on 100% O2 and 25LPM flow. Increase analgesia as needed. Add mucomyst to neb regimen. Continue cefepime. Raise flow rate and decrease FiO2 as tolerated. Objective - Vital Signs/Intake and Output Vital Signs (last 24 hours): Temp Pulse Resp BP Pulse Ox 97.2 F L 53 L 22 116/62 98 05/26/17 08:00 05/26/17 08:00 05/26/17 08:25 05/26/17 08:29 05/26/17 08:00 Intake and Output: 05/25/17 05/26/17 23:59 11:59 Intake Total 1300 Balance 1300 - Medications Medications: Current Medications Acetaminophen/Codeine Phosphate (Tylenol/Codeine 300 Mg/30 Mg) 1 tab PO Q4 PRN PRN Reason: Pain, severe (8-10) Last Admin: 05/24/17 16:21 Dose: 1 tab Albuterol Sulfate (Albuterol 0.083% Inhal Lashon (2.5 Mg/3 Ml) Ud) 2.5 mg INH RQ4 PRN PRN Reason: Shortness of Breath Albuterol/Ipratropium (Duoneb 3 Mg/0.5 Mg (3 Ml) Ud) 3 ml INH RQ4 [facility] Last Admin: 05/26/17 08:25 Dose: 3 ml Cholecalciferol (Vitamin D) 1,000 iu PO DAILY [facility] Last Admin: 05/26/17 08:33 Dose: 1,000 iu Docusate Sodium (Colace) 100 mg PO DAILY [facility] Last Admin: 05/26/17 08:34 Dose: 100 mg Famotidine (Pepcid) 20 mg PO BID [facility] Last Admin: 05/26/17 08:33 Dose: 20 mg Furosemide (Lasix) 20 mg PO DAILY [facility] Last Admin: 05/26/17 08:29 Dose: 20 mg Guaifenesin (Mucinex La) 600 mg PO Q12 [facility] Last Admin: 05/26/17 08:33 Dose: 600 mg Home Med (Glycopyrrolate/Formoterol Fum [Bevespi Aerosphere Inhaler]) 2 puff IH Q12H [facility] Last Admin: 05/24/17 03:52 Dose: 2 puff Methylprednisolone 40 mg/ (Sodium Chloride) 50 mls @ 100 mls/hr IVPB DAILY [facility] Last Admin: 05/26/17 10:01 Dose: 100 mls/hr Cefepime HCl 2 gm/ Sodium (Chloride) 100 mls @ 100 mls/hr IVPB Q8 [facility] PRN Reason: Protocol Last Admin: 05/26/17 08:30 Dose: 100 mls/hr Lactulose (Enulose) 10 gm PO DAILY PRN PRN Reason: Constipation Last Admin: 05/26/17 09:53 Dose: 10 gm Lidocaine (Lidoderm) 1 ea TD DAILY PRN PRN Reason: Pain, Mild (1-3) Last Admin: 05/25/17 08:25 Dose: 1 ea Midodrine (Proamatine) 10 mg PO DAILY [facility] Last Admin: 05/26/17 08:33 Dose: 10 mg Morphine Sulfate (Morphine) 2 mg IVP Q4 PRN PRN Reason: Pain, moderate (4-7) Morphine Sulfate (Morphine) 3 mg IVP Q4 PRN PRN Reason: Pain, severe (8-10) - Labs Labs: 05/26/17 04:30 05/26/17 04:30 PT 14.0 Seconds (9.8-13.1) H 05/24/17 14:45 INR 1.2 (0.9-1.2) 05/24/17 14:45 APTT 24.1 Seconds (25.6-37.1) L 05/24/17 14:45 Assessment and Plan (1) Pneumonia due to Pseudomonas aeruginosa Status: Acute (2) Bullous emphysema Status: Chronic (3) Pulmonary fibrosis Status: Chronic
--- NOTE | 2017-05-26 10:40 | CP.PCM.PN ---
Subjective - Date & Time of Evaluation Date of Evaluation: 05/26/17 Time of Evaluation: 10:00 - Subjective Subjective: Pulmonary status remains precarious with O2 requirements rising (at this time on 100% Hif[place] O2 delivery) Friday and Friday, pt was on BiPAP support with severe dyscomfort Pt and family have ruled out intubation Ches x-ray noted Dr. Valle's consult noted Pt on IVABx VVI paced rhythm BP 104/74 mm Hg On IV morhine for pain and anxiety reliefe Poor prognosis explained to pt's family Objective - Vital Signs/Intake and Output Vital Signs (last 24 hours): Temp Pulse Resp BP Pulse Ox 97.2 F L 53 L 22 116/62 98 05/26/17 08:00 05/26/17 08:00 05/26/17 08:25 05/26/17 08:29 05/26/17 08:00 Intake and Output: 05/26/17 05/26/17 06:59 18:59 Intake Total 1300 Balance 1300 - Medications Medications: Current Medications Acetaminophen/Codeine Phosphate (Tylenol/Codeine 300 Mg/30 Mg) 1 tab PO Q4 PRN PRN Reason: Pain, severe (8-10) Last Admin: 05/24/17 16:21 Dose: 1 tab Acetylcysteine (Mucomyst 10% 4ml) 2 ml IH RBID [facility] Albuterol Sulfate (Albuterol 0.083% Inhal Lashon (2.5 Mg/3 Ml) Ud) 2.5 mg INH RQ4 PRN PRN Reason: Shortness of Breath Albuterol/Ipratropium (Duoneb 3 Mg/0.5 Mg (3 Ml) Ud) 3 ml INH RQ4 [facility] Last Admin: 05/26/17 08:25 Dose: 3 ml Cholecalciferol (Vitamin D) 1,000 iu PO DAILY [facility] Last Admin: 05/26/17 08:33 Dose: 1,000 iu Docusate Sodium (Colace) 100 mg PO DAILY [facility] Last Admin: 05/26/17 08:34 Dose: 100 mg Famotidine (Pepcid) 20 mg PO BID [facility] Last Admin: 05/26/17 08:33 Dose: 20 mg Furosemide (Lasix) 20 mg PO DAILY [facility] Last Admin: 05/26/17 08:29 Dose: 20 mg Guaifenesin (Mucinex La) 600 mg PO Q12 [facility] Last Admin: 05/26/17 08:33 Dose: 600 mg Home Med (Glycopyrrolate/Formoterol Fum [Bevespi Aerosphere Inhaler]) 2 puff IH Q12H [facility] Last Admin: 05/24/17 03:52 Dose: 2 puff Methylprednisolone 40 mg/ (Sodium Chloride) 50 mls @ 100 mls/hr IVPB DAILY [facility] Last Admin: 05/26/17 10:01 Dose: 100 mls/hr Cefepime HCl 2 gm/ Sodium (Chloride) 100 mls @ 100 mls/hr IVPB Q8 [facility] PRN Reason: Protocol Last Admin: 05/26/17 08:30 Dose: 100 mls/hr Lactulose (Enulose) 10 gm PO DAILY PRN PRN Reason: Constipation Last Admin: 05/26/17 09:53 Dose: 10 gm Lidocaine (Lidoderm) 1 ea TD DAILY PRN PRN Reason: Pain, Mild (1-3) Last Admin: 05/25/17 08:25 Dose: 1 ea Midodrine (Proamatine) 10 mg PO DAILY [facility] Last Admin: 05/26/17 08:33 Dose: 10 mg Morphine Sulfate (Morphine) 2 mg IVP Q4 PRN PRN Reason: Pain, moderate (4-7) Morphine Sulfate (Morphine) 3 mg IVP Q4 PRN PRN Reason: Pain, severe (8-10) - Labs Labs: 05/26/17 04:30 05/26/17 04:30 PT 14.0 Seconds (9.8-13.1) H 05/24/17 14:45 INR 1.2 (0.9-1.2) 05/24/17 14:45 APTT 24.1 Seconds (25.6-37.1) L 05/24/17 14:45
--- NOTE | 2017-05-26 10:51 | RAD ---
HISTORY: pneumonia COMPARISON: Portable chest 05/23/2017. FINDINGS: LUNGS: No interval change in the left lower lobe atelectasis or infiltrate. Reticular markings remain increased diffusely bilaterally, greater the right than left, again indicating chronic interstitial pulmonary disease. PLEURA: Trace of pleural effusion remain suggested versus fibrosis pontine Satya left costophrenic sulcus. CARDIOVASCULAR: Stable cardiomegaly without pulmonary venous congestion. Permanent pacemaker again evident. OSSEOUS STRUCTURES: No significant abnormalities. VISUALIZED UPPER ABDOMEN: Normal. OTHER FINDINGS: None. IMPRESSION: Stable radiograph with left lower lobe airspace disease unchanged as well as trace left pleural effusion. Underlying interstitial pulmonary disease again noted diffusely bilaterally.
[2017-05-26 12:18] LABS: NEUTROPHIL 95 % (42-75); TOTAL CELLS COUNTED 100
[2017-05-26] MEDS: Acetylcysteine 10% 4 ML IH SCH (19:35)
[2017-05-27] MEDS: Cefepime 2 GM in Sodium Chloride 0.9% 100 ML IVPB SCH ×3 (00:34→17:01)
[2017-05-27] MEDS: Albuterol-Ipratrop 3 mg / 0.5 (3 ml) UD INH SCH ×5 (04:59→19:05)
[2017-05-27] MEDS: Acetylcysteine 10% 4 ML IH SCH ×2 (07:26→19:05)
--- NOTE | 2017-05-27 08:42 | CP.PCM.PN ---
Subjective - Date & Time of Evaluation Date of Evaluation: 05/27/17 Time of Evaluation: 08:37 - Subjective Subjective: Seen together with Cardiology this morning. Appears to still have significant pain discomfort despite present analgesic regimen. Remains on HFNC with 100% O2 at 30LPM. SpO2 presently 91%. Movement for exam results in acute pain. Not presently dyspneic, but hyperventilates when having pain. No CXR this morning; ordered for tomorrow AM. No sputum expectoration this morning. Breath sounds are present bilaterally, diminished. No audible wheezing or bronchial breath sounds. Sonorous rhonchi (few) with medium rales in dependant zones. CXR in AM. Fentanyl patch 12mcg added to regimen. Continue prn morphine. Same HFNC settings. Continue aerosol therapy and CPT as able. He is DNR/DNI status. Objective - Vital Signs/Intake and Output Vital Signs (last 24 hours): Temp Pulse Resp BP Pulse Ox 98 F 57 L 22 128/73 96 05/27/17 05:00 05/27/17 05:00 05/27/17 05:00 05/27/17 05:00 05/27/17 05:00 - Medications Medications: Current Medications Acetylcysteine (Mucomyst 10% 4ml) 2 ml IH RBID [facility] Last Admin: 05/27/17 07:26 Dose: 2 ml Albuterol Sulfate (Albuterol 0.083% Inhal Lashon (2.5 Mg/3 Ml) Ud) 2.5 mg INH RQ4 PRN PRN Reason: Shortness of Breath Albuterol/Ipratropium (Duoneb 3 Mg/0.5 Mg (3 Ml) Ud) 3 ml INH RQ4 [facility] Last Admin: 05/27/17 07:26 Dose: 3 ml Cholecalciferol (Vitamin D) 1,000 iu PO DAILY [facility] Last Admin: 05/26/17 08:33 Dose: 1,000 iu Docusate Sodium (Colace) 100 mg PO DAILY [facility] Last Admin: 05/26/17 08:34 Dose: 100 mg Famotidine (Pepcid) 20 mg PO BID [facility] Last Admin: 05/26/17 16:23 Dose: 20 mg Fentanyl (Duragesic) 1 patch TD Q3D [facility] PRN Reason: Protocol Furosemide (Lasix) 20 mg PO DAILY [facility] Last Admin: 05/26/17 08:29 Dose: 20 mg Guaifenesin (Mucinex La) 600 mg PO Q12 [facility] Last Admin: 05/26/17 22:30 Dose: 600 mg Home Med (Glycopyrrolate/Formoterol Fum [Bevespi Aerosphere Inhaler]) 2 puff IH Q12H [facility] Last Admin: 05/24/17 03:52 Dose: 2 puff Methylprednisolone 40 mg/ (Sodium Chloride) 50 mls @ 100 mls/hr IVPB DAILY [facility] Last Admin: 05/26/17 10:01 Dose: 100 mls/hr Cefepime HCl 2 gm/ Sodium (Chloride) 100 mls @ 100 mls/hr IVPB Q8 [facility] PRN Reason: Protocol Last Admin: 05/27/17 00:34 Dose: 100 mls/hr Lactulose (Enulose) 10 gm PO DAILY PRN PRN Reason: Constipation Last Admin: 05/26/17 09:53 Dose: 10 gm Lidocaine (Lidoderm) 1 ea TD DAILY PRN PRN Reason: Pain, Mild (1-3) Last Admin: 05/25/17 08:25 Dose: 1 ea Midodrine (Proamatine) 10 mg PO DAILY [facility] Last Admin: 05/26/17 08:33 Dose: 10 mg Morphine Sulfate (Morphine) 4 mg IVP Q4 PRN PRN Reason: Pain, severe (8-10) Last Admin: 05/26/17 14:47 Dose: 4 mg Morphine Sulfate (Morphine) 3 mg IVP Q4 PRN PRN Reason: Pain, moderate (4-7) - Labs Labs: 05/26/17 04:30 05/26/17 04:30 PT 14.0 Seconds (9.8-13.1) H 05/24/17 14:45 INR 1.2 (0.9-1.2) 05/24/17 14:45 APTT 24.1 Seconds (25.6-37.1) L 05/24/17 14:45 Assessment and Plan (1) Pneumonia due to Pseudomonas aeruginosa Status: Acute (2) Bullous emphysema Status: Chronic (3) Pulmonary fibrosis Status: Chronic
--- NOTE | 2017-05-27 08:43 | CP.PCM.PN ---
Subjective - Date & Time of Evaluation Date of Evaluation: 05/27/17 Time of Evaluation: 08:20 - Subjective Subjective: Continues to experience significant pain due to dislocated cocyx Still dyspnoic at rest (resp rate 20-22 BPM) Pulse Ox 91% with hiflow O2 delivery (100% FiO2) VVI pced rhythm Pt to start on Fentanyl patch to relieve persistent pain On IVABx Objective - Vital Signs/Intake and Output Vital Signs (last 24 hours): Temp Pulse Resp BP Pulse Ox 98 F 57 L 22 128/73 96 05/27/17 05:00 05/27/17 05:00 05/27/17 05:00 05/27/17 05:00 05/27/17 05:00 - Medications Medications: Current Medications Acetylcysteine (Mucomyst 10% 4ml) 2 ml IH RBID [facility] Last Admin: 05/27/17 07:26 Dose: 2 ml Albuterol Sulfate (Albuterol 0.083% Inhal Lashon (2.5 Mg/3 Ml) Ud) 2.5 mg INH RQ4 PRN PRN Reason: Shortness of Breath Albuterol/Ipratropium (Duoneb 3 Mg/0.5 Mg (3 Ml) Ud) 3 ml INH RQ4 [facility] Last Admin: 05/27/17 07:26 Dose: 3 ml Cholecalciferol (Vitamin D) 1,000 iu PO DAILY [facility] Last Admin: 05/26/17 08:33 Dose: 1,000 iu Docusate Sodium (Colace) 100 mg PO DAILY [facility] Last Admin: 05/26/17 08:34 Dose: 100 mg Famotidine (Pepcid) 20 mg PO BID [facility] Last Admin: 05/26/17 16:23 Dose: 20 mg Fentanyl (Duragesic) 1 patch TD Q3D [facility] PRN Reason: Protocol Furosemide (Lasix) 20 mg PO DAILY [facility] Last Admin: 05/26/17 08:29 Dose: 20 mg Guaifenesin (Mucinex La) 600 mg PO Q12 [facility] Last Admin: 05/26/17 22:30 Dose: 600 mg Home Med (Glycopyrrolate/Formoterol Fum [Bevespi Aerosphere Inhaler]) 2 puff IH Q12H [facility] Last Admin: 05/24/17 03:52 Dose: 2 puff Methylprednisolone 40 mg/ (Sodium Chloride) 50 mls @ 100 mls/hr IVPB DAILY [facility] Last Admin: 05/26/17 10:01 Dose: 100 mls/hr Cefepime HCl 2 gm/ Sodium (Chloride) 100 mls @ 100 mls/hr IVPB Q8 [facility] PRN Reason: Protocol Last Admin: 05/27/17 00:34 Dose: 100 mls/hr Lactulose (Enulose) 10 gm PO DAILY PRN PRN Reason: Constipation Last Admin: 05/26/17 09:53 Dose: 10 gm Lidocaine (Lidoderm) 1 ea TD DAILY PRN PRN Reason: Pain, Mild (1-3) Last Admin: 05/25/17 08:25 Dose: 1 ea Midodrine (Proamatine) 10 mg PO DAILY [facility] Last Admin: 05/26/17 08:33 Dose: 10 mg Morphine Sulfate (Morphine) 4 mg IVP Q4 PRN PRN Reason: Pain, severe (8-10) Last Admin: 05/26/17 14:47 Dose: 4 mg Morphine Sulfate (Morphine) 3 mg IVP Q4 PRN PRN Reason: Pain, moderate (4-7) - Labs Labs: 05/26/17 04:30 05/26/17 04:30 PT 14.0 Seconds (9.8-13.1) H 05/24/17 14:45 INR 1.2 (0.9-1.2) 05/24/17 14:45 APTT 24.1 Seconds (25.6-37.1) L 05/24/17 14:45
[2017-05-27] MEDS: guaiFENesin 600 mg ER Tab PO SCH ×2 (10:03→21:24)
[2017-05-27] MEDS ORDERED: MethylPREDNISolone 40 mg Vial ONE (10:11)
[2017-05-27] MEDS: methylPREDNISolone 40 MG in Sodium Chloride 0.9% 50 ML IVPB SCH (10:14)
[2017-05-27] MEDS ORDERED: Sodium Chloride 3% for Inhalation 4 ML VIAL.NEB IH PRN (17:37)
--- NOTE | 2017-05-27 17:53 | CP.PCM.PN ---
Subjective - Date & Time of Evaluation Date of Evaluation: 05/27/17 Time of Evaluation: 17:45 - Subjective Subjective: I D NOTE CHEST XRAY REVIEWED WBC :17.2 PATIENT EXAMINED HAVE D/ASHLEIGH MAXIPEME,STARTED MEROPENEM HAS BETTER MICs added clindamycin for increased coverage Objective - Vital Signs/Intake and Output Vital Signs (last 24 hours): Temp Pulse Resp BP Pulse Ox 97.7 F 62 22 118/71 97 05/27/17 16:27 05/27/17 16:27 05/27/17 16:27 05/27/17 16:27 05/27/17 16:27 - Medications Medications: Current Medications Acetylcysteine (Mucomyst 10% 4ml) 2 ml IH RBID [facility] Last Admin: 05/27/17 07:26 Dose: 2 ml Albuterol Sulfate (Albuterol 0.083% Inhal Lashon (2.5 Mg/3 Ml) Ud) 2.5 mg INH RQ4 PRN PRN Reason: Shortness of Breath Last Admin: 05/27/17 13:39 Dose: 2.5 mg Albuterol/Ipratropium (Duoneb 3 Mg/0.5 Mg (3 Ml) Ud) 3 ml INH RQ4 [facility] Last Admin: 05/27/17 15:05 Dose: 3 ml Cholecalciferol (Vitamin D) 1,000 iu PO DAILY [facility] Last Admin: 05/27/17 10:04 Dose: 1,000 iu Docusate Sodium (Colace) 100 mg PO DAILY [facility] Last Admin: 05/27/17 10:02 Dose: 100 mg Famotidine (Pepcid) 20 mg PO BID [facility] Last Admin: 05/27/17 16:59 Dose: 20 mg Fentanyl (Duragesic) 1 patch TD Q3D [facility] PRN Reason: Protocol Last Admin: 05/27/17 10:51 Dose: 1 patch Furosemide (Lasix) 20 mg PO DAILY [facility] Last Admin: 05/27/17 10:03 Dose: 20 mg Guaifenesin (Mucinex La) 600 mg PO Q12 [facility] Last Admin: 05/27/17 10:03 Dose: 600 mg Home Med (Glycopyrrolate/Formoterol Fum [Bevespi Aerosphere Inhaler]) 2 puff IH Q12H [facility] Last Admin: 05/24/17 03:52 Dose: 2 puff Methylprednisolone 30 mg/ (Sodium Chloride) 50 mls @ 100 mls/hr IVPB DAILY [facility] Meropenem 500 mg/ Sodium (Chloride) 100 mls @ 100 mls/hr IVPB Q8 [facility] PRN Reason: Protocol Clindamycin Phosphate 600 mg/ (Sodium Chloride) 54 mls @ 54 mls/hr IVPB Q12 [facility] PRN Reason: Protocol Lactulose (Enulose) 10 gm PO DAILY PRN PRN Reason: Constipation Last Admin: 05/26/17 09:53 Dose: 10 gm Lidocaine (Lidoderm) 1 ea TD DAILY PRN PRN Reason: Pain, Mild (1-3) Last Admin: 05/25/17 08:25 Dose: 1 ea Midodrine (Proamatine) 10 mg PO DAILY [facility] Last Admin: 05/27/17 10:04 Dose: 10 mg Morphine Sulfate (Morphine) 4 mg IVP Q4 PRN PRN Reason: Pain, severe (8-10) Last Admin: 05/27/17 13:39 Dose: 4 mg Morphine Sulfate (Morphine) 3 mg IVP Q4 PRN PRN Reason: Pain, moderate (4-7) - Labs Labs: 05/26/17 04:30 05/26/17 04:30 PT 14.0 Seconds (9.8-13.1) H 05/24/17 14:45 INR 1.2 (0.9-1.2) 05/24/17 14:45 APTT 24.1 Seconds (25.6-37.1) L 05/24/17 14:45
[2017-05-27] MEDS: Meropenem 500 MG in Sodium Chloride 0.9% 100 ML IVPB SCH (19:27)
[2017-05-27] MEDS: Clindamycin 600 MG in Sodium Chloride 0.9% 100 ML IVPB SCH (21:19)
[2017-05-28] MEDS: Albuterol-Ipratrop 3 mg / 0.5 (3 ml) UD INH SCH ×3 (00:03→07:29)
[2017-05-28] MEDS: Meropenem 500 MG in Sodium Chloride 0.9% 100 ML IVPB SCH ×3 (00:23→17:34)
[2017-05-28] MEDS: Acetylcysteine 10% 4 ML IH SCH ×2 (07:29→19:37)
--- NOTE | 2017-05-28 08:58 | CP.PCM.PN ---
Subjective - Date & Time of Evaluation Date of Evaluation: 05/28/17 Time of Evaluation: 08:30 - Subjective Subjective: Desaturated repeatedly during night in spite of vigorous O2 supplement Makes eye contact but too feeble to answer to calling Squeezes hand in response. Resp rate 22-24 /mi VVI paced rhythm Lt lower lip drooped while pt was asleep/which did not on being awakened Too feeble to go thru neuro eval, will not subject him to testing (will not be of any consequence) Received doses of Morphine for pain control during last 24 hrs Has advanced (terminal) ventilatory failure Family had requested DNR, will recommend Hospice to them Objective - Vital Signs/Intake and Output Vital Signs (last 24 hours): Temp Pulse Resp BP Pulse Ox 97.6 F 64 24 141/70 97 05/28/17 05:23 05/28/17 05:23 05/28/17 07:31 05/28/17 05:23 05/28/17 05:23 - Medications Medications: Current Medications Acetylcysteine (Mucomyst 10% 4ml) 2 ml IH RBID [facility] Last Admin: 05/28/17 07:29 Dose: 2 ml Albuterol Sulfate (Albuterol 0.083% Inhal Lashon (2.5 Mg/3 Ml) Ud) 2.5 mg INH RQ4 PRN PRN Reason: Shortness of Breath Last Admin: 05/27/17 13:39 Dose: 2.5 mg Albuterol/Ipratropium (Duoneb 3 Mg/0.5 Mg (3 Ml) Ud) 3 ml INH RQ4 [facility] Last Admin: 05/28/17 07:29 Dose: 3 ml Cholecalciferol (Vitamin D) 1,000 iu PO DAILY [facility] Last Admin: 05/27/17 10:04 Dose: 1,000 iu Docusate Sodium (Colace) 100 mg PO DAILY [facility] Last Admin: 05/27/17 10:02 Dose: 100 mg Famotidine (Pepcid) 20 mg PO BID [facility] Last Admin: 05/27/17 16:59 Dose: 20 mg Fentanyl (Duragesic) 1 patch TD Q3D [facility] PRN Reason: Protocol Last Admin: 05/27/17 10:51 Dose: 1 patch Furosemide (Lasix) 20 mg PO DAILY [facility] Last Admin: 05/27/17 10:03 Dose: 20 mg Guaifenesin (Mucinex La) 600 mg PO Q12 [facility] Last Admin: 05/27/17 21:24 Dose: 600 mg Home Med (Glycopyrrolate/Formoterol Fum [Bevespi Aerosphere Inhaler]) 2 puff IH Q12H [facility] Last Admin: 05/24/17 03:52 Dose: 2 puff Methylprednisolone 30 mg/ (Sodium Chloride) 50 mls @ 100 mls/hr IVPB DAILY [facility] Meropenem 500 mg/ Sodium (Chloride) 100 mls @ 100 mls/hr IVPB Q8 [facility] PRN Reason: Protocol Last Admin: 05/28/17 00:23 Dose: 100 mls/hr Clindamycin Phosphate 600 mg/ (Sodium Chloride) 104 mls @ 104 mls/hr IVPB Q12 [facility] PRN Reason: Protocol Last Admin: 05/27/17 21:19 Dose: 104 mls/hr Lactulose (Enulose) 10 gm PO DAILY PRN PRN Reason: Constipation Last Admin: 05/26/17 09:53 Dose: 10 gm Lidocaine (Lidoderm) 1 ea TD DAILY PRN PRN Reason: Pain, Mild (1-3) Last Admin: 05/25/17 08:25 Dose: 1 ea Midodrine (Proamatine) 10 mg PO DAILY [facility] Last Admin: 05/27/17 10:04 Dose: 10 mg Morphine Sulfate (Morphine) 4 mg IVP Q4 PRN PRN Reason: Pain, severe (8-10) Last Admin: 05/28/17 05:24 Dose: 4 mg Morphine Sulfate (Morphine) 3 mg IVP Q4 PRN PRN Reason: Pain, moderate (4-7) - Labs Labs: 05/26/17 04:30 05/26/17 04:30 PT 14.0 Seconds (9.8-13.1) H 05/24/17 14:45 INR 1.2 (0.9-1.2) 05/24/17 14:45 APTT 24.1 Seconds (25.6-37.1) L 05/24/17 14:45
[2017-05-28] MEDS ORDERED: methylPREDNISolone 30 MG in Sodium Chloride 0.9% 50 ML IVPB SCH (09:00)
--- NOTE | 2017-05-28 09:04 | RAD ---
HISTORY: Pneumonia. Technique: Single view portable erect @ 07:25. COMPARISON: 05/26/2017. FINDINGS: LUNGS: Stable multifocal infiltrates. PLEURA: No significant pleural effusion identified, no pneumothorax apparent. CARDIOVASCULAR: Cardiomegaly. No evidence of acute, significant cardiovascular disease. Position/ configuration of pacemaker Satisfactory. OSSEOUS STRUCTURES: No significant abnormalities. VISUALIZED UPPER ABDOMEN: Normal. OTHER FINDINGS: None. IMPRESSION: No significant interval change compared to the prior examination(s). Multifocal infiltrates remain.
[2017-05-28] MEDS: Clindamycin 600 MG in Sodium Chloride 0.9% 100 ML IVPB SCH (09:28)
[2017-05-28] MEDS: guaiFENesin 600 mg ER Tab PO SCH ×2 (09:30→09:40)
[2017-05-28 15:58] VITALS: BP 108/72; PULSE 87; TEMP 97.6; O2SAT 87
[2017-05-28 16:30] VITALS: RESP 20
--- NOTE | 2017-05-29 08:13 | CP.PCM.HP ---
History of Present Illness - History of Present Illness History of Present Illness: This 89-year-old man was hospitalized on a telemetry unit from transitional care unit where he was sent the day before on May 22 and then sent back to the telemetry unit on May 23 upon developing profound shortness of breath and hypoxia in spite of aggressive oxygen delivery. The patient had a long history of pulmonary fibrosis and COPD and was treated in acute care setting of this hospital. He was sent to telemetry unit upon being found stable. On arrival, during the night he developed severe tachypnea and hypoxia requiring aggressive oxygen delivery and in spite of high flow oxygen supplement and an FiO2 of 35%. His pulse oximetry followed around 91% of patients a respirator rate exceeded 22 breaths per minute. He was seen by his pulmonary physician who recommended that the patient be transferred back to the acute care facility. The patient had had a fall at home and had severe lower back pain and an epidural injection had been carried out recently with little relief of his lower back pain. Physical examination showed an elderly man of who was tachypneic with respiratory rates exceeding 22 breaths per minute, exhausted. Telemetry showed a VVI paced rhythm. His blood pressure was 102/70 mmHg. His jugular venous pressure was not elevated there was no edema over his lower extremity. His nail beds had mild cyanotic tinge. He was markedly kyphotic. The apex was not palpable the first and second heart sounds were distant but normal. There was a brief apical systolic murmur. Expiration was slightly prolonged with coarse crepitations at both bases. Abdomen was soft and liver and spleen were not palpable. His labs were noted. Impression: Severe hypoxia and respiratory insufficiency in a patient with pulmonary fibrosis and COPD. Left ventricular systolic dysfunction with congestive cardiac failure. Status post VVI pacemaker implant. History of orthostatic hypotension. The patient will be seen by an infectious disease specialist along with his student career development specialist and aggressive oxygen supplementation would be done so as to improve his tissue oxygenation. Present on Admission - Present on Admission Any Indicators Present on Admission: No Past Patient History - Past Medical History & Family History Past Medical History?: Yes - Past Social History Smoking Status: Former Smoker Chewing Tobacco Use: No Cigar Use: No Alcohol: Social Drugs: Denies Home Situation {Lives}: Alone - CARDIAC Hx Congestive Heart Failure: Yes Hx Hypercholesterolemia: Yes Hx Hypertension: Yes Hx Pacemaker: Yes Hx Peripheral Edema: Yes - PULMONARY Hx Chronic Obstructive Pulmonary Disease (COPD): Yes Hx Emphysema: Yes Hx Pneumonia: Yes (OCT 2015) - NEUROLOGICAL Hx Neurological Disorder: No - HEENT Hx Cataracts: Yes - RENAL Hx Chronic Kidney Disease: Yes (PROTEINURIA) - ENDOCRINE/METABOLIC Hx Endocrine Disorders: No - HEMATOLOGICAL/ONCOLOGICAL Hx Blood Disorders: No - INTEGUMENTARY Hx Dermatological Problems: No - MUSCULOSKELETAL/RHEUMATOLOGICAL Hx Back Pain: Yes Hx Falls: Yes Hx Unsteady Gait: Yes - GASTROINTESTINAL Hx Gastrointestinal Disorders: No - GENITOURINARY/GYNECOLOGICAL Hx Genitourinary Disorders: No - PSYCHIATRIC Hx Psychophysiologic Disorder: No Hx Substance Use: No - SURGICAL HISTORY Hx Cholecystectomy: Yes - ANESTHESIA Hx Anesthesia: Yes Hx Anesthesia Reactions: No Hx Malignant Hyperthermia: No Meds Allergies/Adverse Reactions: Allergies Allergy/AdvReac Type Severity Reaction Status Date / Time No Known Allergies Allergy Verified 05/22/17 15:26 Results - Vital Signs Recent Vital Signs: Last Vital Signs Temp 97.6 F 05/28/17 15:58 Pulse 87 05/28/17 15:58 Resp 20 05/28/17 16:29 BP 108/72 05/28/17 15:58 Pulse Ox 87 L 05/28/17 15:58 - Labs Result Diagrams: 05/26/17 04:30 05/26/17 04:30
--- NOTE | 2017-05-29 08:13 | CP.PCM.DIS ---
Provider - Provider Date of Admission: 05/23/17 12:03 Attending physician: Jason Arango MD Time Spent in preparation of Discharge (in minutes): 30 Hospital Course - Lab Results Lab Results: Micro Results 05/23/17 12:03 Blood Blood Culture - Final NO GROWTH AFTER 5 DAYS 05/23/17 12:03 Blood Gram Stain - Final TEST NOT PERFORMED Most Recent Lab Values WBC 17.2 K/uL (4.8-10.8) H 05/26/17 04:30 RBC 4.25 Mil/uL (4.40-5.90) L 05/26/17 04:30 Hgb 13.7 g/dL (12.0-18.0) 05/26/17 04:30 Hct 40.6 % (35.0-51.0) 05/26/17 04:30 MCV 95.4 fl (80.0-94.0) H 05/26/17 04:30 MCH 32.3 pg (27.0-31.0) H 05/26/17 04:30 MCHC 33.9 g/dL (33.0-37.0) 05/26/17 04:30 RDW 15.1 % (11.5-14.5) H 05/26/17 04:30 Plt Count 171 K/uL (130-400) 05/26/17 04:30 MPV 9.9 fl (7.2-11.7) 05/26/17 04:30 Neut % (Auto) 92.0 % (50.0-75.0) H 05/26/17 04:30 Lymph % (Auto) 2.2 % (20.0-40.0) L 05/26/17 04:30 Wharton % (Auto) 5.4 % (0.0-10.0) 05/26/17 04:30 Eos % (Auto) 0.1 % (0.0-4.0) 05/26/17 04:30 Baso % (Auto) 0.3 % (0.0-2.0) 05/26/17 04:30 Neut # 15.8 K/uL (1.8-7.0) H 05/26/17 04:30 Lymph # 0.4 K/uL (1.0-4.3) L 05/26/17 04:30 Wharton # 0.9 K/uL (0.0-0.8) H 05/26/17 04:30 Eos # 0.0 K/uL (0.0-0.7) 05/26/17 04:30 Baso # 0.1 K/uL (0.0-0.2) 05/26/17 04:30 Neutrophils % (Manual) 95 % (42-75) H 05/26/17 04:30 Band Neutrophils % 3 % (0-2) H 05/23/17 12:07 Lymphocytes % (Manual) 2 % (20-50) L 05/26/17 04:30 Monocytes % (Manual) 3 % (0-10) 05/26/17 04:30 Platelet Estimate Normal (NORMAL) 05/26/17 04:30 Large Platelets Present 05/23/17 12:07 Poikilocytosis (manual Slight 05/23/17 12:07 Anisocytosis (manual) Slight 05/26/17 04:30 Tear Drop Cells Slight 05/26/17 04:30 Ovalocytes Slight 05/26/17 04:30 Pawlet Cells Slight 05/23/17 12:07 PT 14.0 Seconds (9.8-13.1) H 05/24/17 14:45 INR 1.2 (0.9-1.2) 05/24/17 14:45 APTT 24.1 Seconds (25.6-37.1) L 05/24/17 14:45 pCO2 35 mm/Hg (35-45) 05/23/17 12:26 pO2 48 mm/Hg (80-100) L 05/23/17 12:26 HCO3 26.8 mmol/L (21-28) 05/23/17 12:26 ABG pH 7.48 (7.35-7.45) H 05/23/17 12:26 ABG Total CO2 27.2 mmol/L (22-28) 05/23/17 12:26 ABG O2 Saturation 91.1 % (95-98) L 05/23/17 12:26 ABG Base Excess 2.9 mmol/L (-2.0-3.0) 05/23/17 12:26 López Test Yes 05/23/17 12:26 ABG Potassium 4.2 mmol/L (3.6-5.2) 05/23/17 12:26 A-a O2 Difference 122.0 mm/Hg 05/23/17 12:26 Sodium 135.0 mmol/L (132-148) 05/23/17 12:26 Chloride 103.0 mmol/L (98-107) 05/23/17 12:26 Glucose 119 mg/dL (75-110) H 05/23/17 12:26 Lactate 1.3 mmol/L (0.7-2.1) 05/23/17 12:26 FiO2 30.0 % 05/23/17 12:26 Blood Gas Comments 4l/ nc.rr 05/23/17 12:26 Crit Value Read Back N 05/23/17 12:26 Sodium 142 mmol/l (132-148) 05/26/17 04:30 Potassium 3.8 MMOL/L (3.6-5.0) 05/26/17 04:30 Chloride 106 mmol/L (98-107) 05/26/17 04:30 Carbon Dioxide 23 mmol/L (22-30) 05/26/17 04:30 Anion Gap 16 (10-20) 05/26/17 04:30 BUN 49 mg/dl (9-20) H 05/26/17 04:30 Creatinine 0.9 mg/dL (0.8-1.5) 05/26/17 04:30 Est GFR ( Amer) > 60 05/26/17 04:30 Est GFR (Non-Af Amer) > 60 05/26/17 04:30 Random Glucose 125 mg/dL (75-110) H 05/26/17 04:30 Calcium 8.9 mg/dL (8.4-10.2) 05/26/17 04:30 Total Bilirubin 1.2 mg/dl (0.2-1.3) 05/26/17 04:30 AST 22 U/L (17-59) 05/26/17 04:30 ALT 41 U/L (21-72) 05/26/17 04:30 Alkaline Phosphatase 90 U/L (38-126) 05/26/17 04:30 Troponin I 0.0450 ng/mL (0.00-0.120) 05/23/17 12:07 NT-Pro-B Natriuret Pep 6520 pg/ml (0-900) H 05/23/17 12:07 Total Protein 6.1 G/DL (6.3-8.2) L 05/26/17 04:30 Albumin 3.1 g/dL (3.5-5.0) L 05/26/17 04:30 Globulin 3.0 gm/dL (2.2-3.9) 05/26/17 04:30 Albumin/Globulin Ratio 1.0 (1.0-2.1) 05/26/17 04:30 Arterial Blood Potassium 4.2 mmol/L (3.6-5.2) 05/23/17 12:26 - Hospital Course Hospital Course: This 89-year-old man was transferred to the telemetry unit on 23 of May when he developed profound hypoxia, tachypnea. The patient had had a long history of pulmonary fibrosis and COPD and he had developed a productive cough with purulent expectorate. His sputum culture taken on may was finally reported on may as showing evidence of Pseudomonas infection. The patient was then appropriately switched to IV antibiotic. The patient was given high flow oxygen supplement with higher and higher FiO2 in spite of which pulse oximetry hovered around low 90s and often in the range of 87-88%. The patient grew steadily more and more fatigued and exhausted and febrile. The patient and the family has requested that no resuscitative efforts be carried out. They had ruled out any consideration of ventilatory support. Eventually it was clear that the patient really needed only comfort care. When this was discussed with the family, on May 28, they agreed that he should enter hospice care. Accordingly a hospice evaluation was requested. After being evaluated by the hospice nurse the patient was transferred into hospice care on the night of May 28. Discharge Exam - Head Exam Head Exam: ATRAUMATIC Discharge Plan - Follow Up Plan Condition: FAIR Disposition: HOSPICE - MEDICAL FACILITY
== END 2017-05-28 21:30 | disposition hospice, inpatient (51) | DRG 177 ==
LOC: H.ER 11:10 → H.ERHOLD 12:03 → H.TEL 13:54
PROVIDERS: ADMIT Internal Medicine Cardiovascular Disease; ATTEND Internal Medicine Cardiovascular Disease
PROC: 3E0F73Z Introduction of Anti-inflammatory into Respiratory Tract, Via Natural or Artificial Opening (ICD-10-PCS; principal; 2017-05-23)
DX: J15.1 Pneumonia due to Pseudomonas (principal); J96.01 Acute respiratory failure with hypoxia; I50.21 Acute systolic (congestive) heart failure; J44.0 Chronic obstructive pulmonary disease with (acute) lower respiratory infection; I13.0 Hypertensive heart and chronic kidney disease with heart failure and stage 1 through stage 4 chronic kidney disease, or unspecified chronic kidney disease; J84.112 Idiopathic pulmonary fibrosis; Z99.81 Dependence on supplemental oxygen; N18.9 Chronic kidney disease, unspecified; E78.00 Pure hypercholesterolemia, unspecified; F41.9 Anxiety disorder, unspecified; Z51.5 Encounter for palliative care; Z66 Do not resuscitate; Z95.0 Presence of cardiac pacemaker; Z87.891 Personal history of nicotine dependence; Z87.01 Personal history of pneumonia (recurrent); Z91.81 History of falling

== ENCOUNTER 2017-05-28 21:35 | Inpatient (IN) | payer OTHER ==
[2017-05-28 21:45] VITALS: BMI 15.2
[2017-05-28] MEDS ORDERED: Lidocaine 5% Patch TD PRN (22:55)
[2017-05-28] MEDS ORDERED: Albuterol-Ipratrop 3 mg / 0.5 (3 ml) UD ONE (23:25)
[2017-05-28] MEDS: Albuterol 0.083% Inhal Sol (2.5 mg/3 mL) UD INH PRN (23:27)
[2017-05-29] MEDS: Albuterol 0.083% Inhal Sol (2.5 mg/3 mL) UD INH PRN ×2 (04:38→07:32)
[2017-05-29] MEDS ORDERED: Acetylcysteine 10% 4 ML IH SCH (08:00)
--- NOTE | 2017-05-29 09:45 | CP.PCM.PN ---
Subjective - Date & Time of Evaluation Date of Evaluation: 05/29/17 Time of Evaluation: 09:15 - Subjective Subjective: Now admitted as a Hospice pt for comfort care only Too feeble to verbalise any symptoms Resp rate > 22-24 BPM Gasps for air Getting morphine for restlessness Prognosis poor Family is aware of his prognosis Objective - Vital Signs/Intake and Output Vital Signs (last 24 hours): Temp Pulse Resp BP Pulse Ox 96.5 F L 56 L 22 116/58 L 95 05/29/17 08:00 05/29/17 08:00 05/29/17 08:00 05/29/17 08:00 05/29/17 08:00 - Medications Medications: Current Medications Acetylcysteine (Mucomyst 10% 4ml) 2 ml IH RBID [facility] Last Admin: 05/29/17 07:32 Dose: 2 ml Albuterol Sulfate (Albuterol 0.083% Inhal Lashon (2.5 Mg/3 Ml) Ud) 2.5 mg INH RQ4 PRN PRN Reason: Shortness of Breath Last Admin: 05/29/17 07:32 Dose: 2.5 mg Fentanyl (Duragesic) 1 patch TD Q3D [facility] PRN Reason: Protocol Last Admin: 05/29/17 09:12 Dose: 1 patch Lidocaine (Lidoderm) 1 ea TD DAILY PRN PRN Reason: pain Lorazepam (Ativan) 1 mg IVP Q4 PRN PRN Reason: Agitation Last Admin: 05/29/17 09:22 Dose: 1 mg Morphine Sulfate (Morphine) 4 mg IVP Q2 PRN PRN Reason: Pain, severe (8-10)
[2017-05-29] MEDS ORDERED: Hyoscyamine 0.125 mg SL Tab SL PRN (15:28)
--- NOTE | 2017-05-30 08:39 | CP.PCM.PN ---
Subjective - Date & Time of Evaluation Date of Evaluation: 05/30/17 Time of Evaluation: 08:30 - Subjective Subjective: Sleeping peacefully (night nurse had given him morphine in early AM for restlessness) On hiflow O2 supplement On Hospice care. Objective - Vital Signs/Intake and Output Vital Signs (last 24 hours): Temp Pulse Resp BP Pulse Ox 97.8 F 63 22 108/52 L 96 05/30/17 08:20 05/30/17 08:20 05/30/17 08:20 05/30/17 08:20 05/30/17 08:20 - Medications Medications: Current Medications Acetaminophen (Tylenol 650 Mg Supp) 650 mg NE Q4 PRN PRN Reason: Fever >100.4 F Albuterol Sulfate (Albuterol 0.083% Inhal [place] (2.5 Mg/3 Ml) Ud) 2.5 mg INH RQ4 PRN PRN Reason: Shortness of Breath Last Admin: 05/29/17 07:32 Dose: 2.5 mg Fentanyl (Duragesic) 1 patch TD Q3D JERED PRN Reason: Protocol Last Admin: 05/29/17 09:12 Dose: 1 patch Hyoscyamine (Levsin) 0.125 mg SL Q4 PRN PRN Reason: GI distress Lidocaine (Lidoderm) 1 ea TD DAILY PRN PRN Reason: pain Lorazepam (Ativan) 1 mg IVP Q4 PRN PRN Reason: Agitation Last Admin: 05/29/17 09:22 Dose: 1 mg Morphine Sulfate (Morphine) 4 mg IVP Q2 PRN PRN Reason: Pain, severe (8-10) Last Admin: 05/30/17 04:12 Dose: 4 mg
[2017-05-30] MEDS ORDERED: Morphine 100 MG in Sodium Chloride 0.9% 100 ML IVPB SCH (15:30)
--- NOTE | 2017-05-31 10:26 | CP.PCM.PN ---
Subjective - Date & Time of Evaluation Date of Evaluation: 05/31/17 Time of Evaluation: 09:50 - Subjective Subjective: Sleeping peacefully, no sign of discomfort On Morphine drip (1 mg/hr) Family at bedside appreciative of nursing care Objective - Vital Signs/Intake and Output Vital Signs (last 24 hours): Temp Pulse Resp BP Pulse Ox 98.7 F 70 20 89/46 L 100 05/31/17 08:03 05/31/17 08:03 05/31/17 08:03 05/31/17 08:03 05/31/17 08:03 - Medications Medications: Current Medications Acetaminophen (Tylenol 650 Mg Supp) 650 mg SD Q4 PRN PRN Reason: Fever >100.4 F Albuterol Sulfate (Albuterol 0.083% Inhal [place] (2.5 Mg/3 Ml) Ud) 2.5 mg INH RQ4 PRN PRN Reason: Shortness of Breath Last Admin: 05/29/17 07:32 Dose: 2.5 mg Fentanyl (Duragesic) 1 patch TD Q3D JERED PRN Reason: Protocol Last Admin: 05/29/17 09:12 Dose: 1 patch Hyoscyamine (Levsin) 0.125 mg SL Q4 PRN PRN Reason: GI distress Morphine Sulfate 100 mg/ (Sodium Chloride) 104 mls @ 1.04 mls/hr IVPB .Q24H JERED ; 1 MG/HR PRN Reason: Protocol Last Admin: 05/30/17 15:55 Dose: 1.04 mls/hr Lidocaine (Lidoderm) 1 ea TD DAILY PRN PRN Reason: pain Lorazepam (Ativan) 1 mg IVP Q4 PRN PRN Reason: Agitation Last Admin: 05/30/17 11:56 Dose: 1 mg Morphine Sulfate (Morphine) 4 mg IVP Q2 PRN PRN Reason: Pain, severe (8-10) Last Admin: 05/30/17 15:05 Dose: 4 mg
[2017-05-31 16:41] VITALS: BP 74/35; PULSE 62; RESP 20; TEMP 99.1; O2SAT 93
--- NOTE | 2017-05-31 20:48 | CP.PCM.PRO ---
Pronouncement of Note - Clinical Findings Physical Exam: No Response Verbal/Painful Stimuli, Absent Peripheral Pulses{ Carotid & Femoral}, Absent Heart & Breath Sounds, No Pupillary Light Reflex, No Corneal Reflex, Pupils Fixed & Dilated, Absence of Vital Signs - Pronouncement Time Time of Pronouncement of : 20:05 - Notifications Pronouncement Notifications: Family Notified, Atending Notified Facility Maintenance Helper Notified: No - Autopsy Autopsy Requested: No [place]: [id number] Additional Comments: This patient was on Hospice care
== END 2017-05-31 20:05 | DRG 197 ==
LOC: H.TEL 21:45 → H.MEDSURG1 05-29 19:45
PROVIDERS: ADMIT Internal Medicine Cardiovascular Disease; ATTEND Internal Medicine Cardiovascular Disease
DX: J84.10 Pulmonary fibrosis, unspecified (principal); I50.22 Chronic systolic (congestive) heart failure; J44.9 Chronic obstructive pulmonary disease, unspecified; R45.1 Restlessness and agitation; Z51.5 Encounter for palliative care; Z95.0 Presence of cardiac pacemaker; Z87.891 Personal history of nicotine dependence; M40.209 Unspecified kyphosis, site unspecified; R09.02 Hypoxemia; M54.5 Low back pain